=== PATIENT | female | born 1945 | race Caucasian/White ===

== ENCOUNTER → 2024-02-17 06:22 | Day surgery (SDC) | payer OTHER, SELFPAY | LOC: GI 06:22 | PROVIDERS: ATTENDING PHYSICIAN Internal Medicine Gastroenterology; FAMILY PHYSICIAN Physician Assistant Medical | DX: R19.5 Other fecal abnormalities (principal) | CPT/HCPCS: 45378 ==

== ENCOUNTER 2024-03-16 23:07 | Inpatient (IN) | payer OTHER, SELFPAY ==
[2024-03-16 18:59] VITALS: BP 159/84
[2024-03-16 19:26] VITALS: BP 146/86
[2024-03-16 19:40] VITALS: BMI 27.5
[2024-03-16 20:02] LABS: % Basophils 0.5 % (0-2); % Eosinophils 1.6 % (0-6); % Immature Granulocytes 1.9 % (0-0.5); % Lymphocytes 7.9 % (20.5-51.1); % Monocytes 5.4 % (1.7-9.3); % Neutrophils 82.7 % (42.2-75.2); Absolute Basophils 0.1 10^3/uL (0-0.2); Absolute Eosinophils 0.3 10^3/uL (0-0.7); Absolute Immature Granulocytes 0.4 10^3/uL (0-0.05); Absolute Lymphocytes 1.5 10^3/uL (1.2-3.4); Absolute Neutrophils 15.1 10^3/uL (1.4-6.5); Hematocrit 33.9 % (37.0-47.0); Hemoglobin 10.5 g/dL (12.0-16.0); Mean Corpuscular Hgb 28.9 pg (27.0-31.0); Mean Corpuscular Volume 93.4 fL (81.0-99.0); Mean Platelet Volume 8.5 fL (7.4-10.4); Nucleated Red Blood Cells % 0 %; Platelet Count 438 10^3/uL (130-400); Red Blood Cell Count 3.63 10^6/uL (4.20-5.40); Red Cell Dist. Width 15.2 % (11.5-14.5); White Blood Cell Count 18.3 10^3/uL (4.8-10.8)
[2024-03-16 20:08] VITALS: BP 129/82
[2024-03-16 20:11] LABS: Urine Albumin 3+ (Neg - Trace); Urine Bilirubin Negative (Negative); Urine Character Bloody (Clear); Urine Color Red; Urine Glucose Negative (Negative); Urine Ketone 1+ (Negative); Urine Leukocyte Trace (Negative); Urine Nitrite Negative (Negative); Urine Occult Blood 4+ (Negative); Urine Urobilinogen Negative (Neg - 1+); Urine pH 6.5 (5.0-9.0)
[2024-03-16 20:16] LABS: ALT (SGPT) 16 U/L (0-35); AST (SGOT) 16 U/L (14-36); Albumin 3.5 g/dl (3.5-5.0); Alkaline Phosphatase 127 U/L (38-126); Blood Urea Nitrogen 33 mg/dl (7-17); Calcium 9.7 mg/dl (8.4-10.2); Carbon Dioxide 27 mmol/L (22-30); Chloride 105 mmol/L (98-107); Estimated Creatinine Clearance 29 ml/min; Glucose 157 mg/dl (70-99); Lipase 85 U/L (23-300); Potassium 5.2 mmol/L (3.5-5.1); Sodium 141 mmol/L (135-145); Total Bilirubin 0.4 mg/dl (0.2-1.3); Total Protein 7.5 g/dl (6.3-8.2)
[2024-03-16 20:19] LABS: Urine Red Blood Cell >100 /HPF (0-2)
[2024-03-16 21:16] VITALS: BP 127/62
[2024-03-16 21:20] VITALS: BP 127/62
--- NOTE | 2024-03-16 21:37 | ED.GENMED ---
History of Present Illness
General
Chief Complaint: Urinary Symptoms
Source: patient
Exam Limitations: none
Time Seen by Provider: 03/16/24 19:29
Nursing documentation reviewed up to this point in time: agreed with
Travel History
Have you had any contact with someone who has COVID-19?: No
Do you have any symptoms of coronavirus? Fever > 100 degrees, chills, cough, shortness of breath, sore throat, loss of taste or smell, muscle aches, or headache?: No
History of Present Illness
History of Present Illness:
Patient to ED with complaint of lower abdominal pain/pressure, difficulty urinating, blood in urine. States symptoms started today. Denies fever/chills, n/v/d. Brought to ED by her sister for eval.
Past History
Past History
ED Past Medical History: CAD, HTN, Hypercholesterolemia and NIDDM
ED Past Surgical History: Cardiac and Orthopedic
Social History
Tobacco: Non-smoker
Alcohol: None
Personal:
Living: with family
Family History
Family History: Negative Diabetes, Hypertension, Early CAD, Asthma or Cancer
Review of Systems
Review of Systems
Allergies reviewed?: Yes
All Other Systems: ROS reviewed and negative except as documented in HPI and ROS
Constitutional: Reports no symptoms
EENT: Reports no symptoms
Respiratory: Reports no symptoms
Cardiac: Reports no symptoms
ABD/GI: Reports abdominal pain (lower abdominal pain)
: Reports dysuria, urgency and bleeding
Musculoskeletal: Reports no symptoms
Skin: Reports no symptoms
Neurological: Reports no symptoms
Psychiatric: Reports no symptoms
Phy Exam
General Physical Exam
General Presentation: no apparent distress
General age: appears stated age
General Skin: warm and dry
General Habitus: normal
Cardiovascular Exam
Cardiovascular Exam: regular rate/rhythm
Pulmonary Exam
Pulmonary Exam: lungs clear and no respiratory distress
Gastrointestinal Exam
Gastrointestinal Exam: normal bowel sounds, soft, no organomegaly, no pulsatile mass, non distended and no cva tenderness
Palpation: left lower quadrant: Mild tenderness and right lower quadrant: Mild tenderness
Rectal Exam: normal external exam, normal sphincter tone and soft stool
Stool: brown
Guaiac Status: negative
Musculoskeletal Exam
Musculoskeletal Exam: full ROM and neuro vasc intact
Skin Exam
Skin Exam: normal color, warm/dry and no rash
Psychiatric Exam
Psychiatric Exam: normal mood/affect
Course
Orders/Labs/Results
Orders:
Orders
03/16/24 19:54
Complete Blood Count/With Diff Urgent
Comprehensive Metabolic Panel Urgent
Lipase Urgent
Urinalysis Reflex To Culture Urgent
Date Specimen was Collected: 03/16/24
Time Specimen was Collected: 19:52
Urine Microscopic Reflex Cult Urgent
Urine Culture Urgent
LUCY Source: U
Specimen Description:
Date Specimen was Collected: 03/16/24
Time Specimen was Collected: 19:52
Comment: ADD ON
03/16/24 20:25
CT Abd/pel Without Iv Or Oral Urgent
Comment:
Reason For Exam: Hematuria
03/16/24 22:46
Admit/Transfer Patient As Directed
Co-Sign Provider:
Level of Care: Inpatient admission
Assign to:: Medical/Surgical
Physician / Group: jolie
Diagnosis: ureteral mass
Reason for Hospitalization: ureteral mass
Expected length of stay greater than two midnights?: Yes
ELOS- Estimated Length of Stay in days: 3
I certify the patient meets the requirements for IP care: Yes
CefTRIAXone [Rocephin] 1,000 mg IV NOW STA
Sterile Water [Sterile Water For Injection] 10 ml IV NOW STA
03/16/24 22:47
Code Status As Directed
Resuscitation Status: Full Code
03/16/24 23:02
Bladder Scan As Directed
Follow Bladder Retention/Intermittent Cath Algorithm?: Yes
PRN if no void in __ hours: 6
Frequency: Per Retention Algorithm
If Bladder Scan Result >: 400
then:: Straight cath
Straight Cath As Directed
Frequency: Per Retention Algorithm
Additional Instructions: straight cath as needed per acute urinary retention algorithm for 24 hrs
Additional Instructions: for bladder scan greater than 400 mL
03/17/24 00:23
Acetaminophen [Tylenol] 650 mg PO Q4HPRN PRN
Bisacodyl [Dulcolax] 10 mg RECTAL [id number] PRN
Dextrose 50%-Water [Dextrose 50% Syringe] 12.5 grams IV [id number] PRN
Docusate W/Senna [Senokot-S] 1 tablet PO BIDPRN PRN
Glucagon [GlucaGen] 1 mg IM PRN PRN
Polyethylene Glycol Powder [Miralax] 17 grams PO DAILYPRN PRN
03/17/24 00:23
UROLOGY CONSULT Routine
Consulting Provider: Murphy Singh
Was physician already notified: Yes
Activity As Directed
Activity Level: As Tolerated
Bedside Glucose Monitoring As Directed
Frequency: AC&HS
Additional Instructions:: Change to q6h if pt on TPN, tube feeding or not eating
Pneumatic Compression Sleeves As Directed
Type: Knee high
Vital Signs As Directed
Frequency: Per unit guidelines
DX Deep Vein Thrombosis Video Routine
03/17/24 Breakfast
NPO
Allow oral meds: Yes
Allow clear liquids: No
Basic Metabolic Panel IN AM
Complete Blood Count/No Diff IN AM
Glycohemoglobin (HgbA1c) IN AM
03/17/24 07:30
Insulin Aspart Corrective Low [Novolog Flexpen-Low Resistance] See Protocol SC AC
03/17/24 08:00
Carvedilol [Coreg] 12.5 mg PO BID
03/17/24 18:00
Atorvastatin [Lipitor] 80 mg PO QPM
03/18/24 00:00
CefTRIAXone [Rocephin] 1,000 mg IV Q24H
03/18/24 06:00
Basic Metabolic Panel IN AM
Complete Blood Count/No Diff IN AM
03/19/24 06:00
Basic Metabolic Panel IN AM
Complete Blood Count/No Diff IN AM
03/20/24 06:00
Basic Metabolic Panel IN AM
Complete Blood Count/No Diff IN AM
03/21/24 06:00
Basic Metabolic Panel IN AM
Complete Blood Count/No Diff IN AM
Abnormal Lab Results
03/16/24
19:54
WBC 18.3 H 10^3/uL
(4.8-10.8)
RBC 3.63 L 10^6/uL
(4.20-5.40)
Hgb 10.5 L g/dL
(12.0-16.0)
Hct 33.9 L %
(37.0-47.0)
MCHC 31.0 L g/dL
(33.0-37.0)
RDW 15.2 H %
(11.5-14.5)
Plt Count 438 H 10^3/uL
(130-400)
Abs Immat Gran (auto) 0.4 H 10^3/uL
(0-0.05)
Absolute Neuts (auto) 15.1 H 10^3/uL
(1.4-6.5)
Absolute Monos (auto) 1.0 H 10^3/uL
(0.1-0.6)
Immature Gran % 1.9 H %
(0-0.5)
Neutrophils % 82.7 H %
(42.2-75.2)
Lymphocytes % 7.9 L %
(20.5-51.1)
Potassium 5.2 H mmol/L
(3.5-5.1)
BUN 33 H mg/dl
(7-17)
Creatinine 1.7 H mg/dL
(0.6-1.0)
Glucose 157 H mg/dl
(70-99)
Alkaline Phosphatase 127 H U/L
(38-126)
Urine Ketones 1+ A
(Negative)
Ur Occult Blood Reflex 4+ A
(Negative)
Leukocyte Esterase Rfl Trace A
(Negative)
Urine RBC >100 A /HPF
(0-2)
Urine Albumin (Reflex) 3+ A
(Neg - Trace)
03/16/24 19:54
03/16/24 19:54
Vital Signs
Initial and Last Documented VS:
Initial Vital Signs
Temp Pulse Resp BP Pulse Ox
98.1 F 85 18 159/84 95
03/16/24 18:59 03/16/24 18:59 03/16/24 18:59 03/16/24 18:59 03/16/24 18:59
Last Documented Vital Signs
Temp Pulse Resp BP Pulse Ox
97.5 F 73 16 138/71 92
03/17/24 00:37 03/17/24 00:37 03/17/24 00:37 03/17/24 00:37 03/17/24 00:37
*Critical Care Note
Total Time (30-74mins, 75-104mins- exclusive of procedures): Not Applicable
Update Note
Update Note:
CT, labs reviewed [facility] patient and family. Dr. Singh notified of CT results and will consult with patient. Requests holding eliquis, keep NPO. Patient is admitte to hospitalist for ureteral mass, hydronephrosis, hematuria.
ED Attending Note
-
Portions of this chart may have been created with voice recognition software.� Occasional wrong word or��sound alike� substitutions may have occurred due to the inherent limitations of voice recognition software.
Discharge Plan
Departure
Patient Disposition: Admit
Date of Disposition: 03/16/24
Time of Disposition: 21:59
Presentation/result/management discussed w/ accepting MD/DO: Hospitalist
Patient with high blood pressure during this ER visit?: No
Condition: Good
Covid-19: Not Applicable
Discharge Problem:
Hematuria, Ureteral mass
Interventions
Interventions:
*Risk Screen - Suicide Last Done: 03/16/24 19:41
*General Assessment Last Done: 03/16/24 18:59
*Neglect/Abuse Screening Last Done: 03/16/24 19:41
ED- Fall Risk Assessment Last Done: 03/16/24 19:41
*ED COVID-19 Vaccine History Last Done: 03/16/24 18:59
*Nursing Disposition Last Done: 03/17/24 00:16
ED-Female Genitourinary Assessment Last Done: 03/16/24 19:41
Discharge Date and Time
Discharge Date/Time: 03/17/24 00:17
--- NOTE | 2024-03-16 22:12 | HPS.HSE ---
Addendum entered and electronically signed by Jaya Soto DO 03/16/24 23:05:
Patient seen and examined independently. Agree with findings and plan as set forth by LOVELY Browne.
Patient is a 78y F with PMH significant for ASCVD, hypertension and DM-II who presents to ED complaining of LLQ abdominal pressure and gross hematuria. Patient states that she felt well this AM. This afternoon she noted development of
discomfort in the LLQ area followed by gross hematuria. She reports urge to urinate but is unable to pass much urine. She denies any fevers / chills, flank pain, N/V/D, etc. She denies any prior history of similar symptoms.
Patient is a life-long smoker.
Ass:
Left Ureteral Mass with Hydronephrosis
Hematuria secondary to the above
Acute Blood Loss Anemia secondary to the above
Leukocytosis / Thrombocytosis
Bilateral Adrenal Adenomas
Mild Hyperkalemia
CKD III
ASCVD
Benign Hypertension
DM-II
Plan:
Admit for further evaluation and treatment.
? ureteral mass / malignancy versus thrombosis / ureteral clot with surrounding ureteritis.
IV abx empirically for now.
NPO, hold further doses of Eliquis (last was 03/16 AM).
Urology evaluation for additional recommendations / interventions.
Bladder scan / straight cath as needed.
Follow H&H and transfuse if needed (consent obtained / on chart).
Hold losartan acutely given hyperkalemia
SSI coverage. Update A1C.
Original Note:
Family Physician
-
Family Physician: Jose Fountain PA-C
Chief Complaint
-
hematuria
History of Present Illness
78 year old with PMH fot CAD, HTN, HLD, DM presented to us with lower abdominal pressure, associated with difficulty urinating and blood in the urine since this afternoon. patient stated urge to void, but unable to void. denied STEVENSON, dizzy or
syncopal episode. denied fever, chills, chest pain, sob. denied n/v/d.
CT with ureteral mass. admitting for further management.
Medical History
Past Medical History
Past Medical History: Reports Other
Additional Past Medical History:
type 2 DM
CKD
HTN
HLD
PVD
CAD
COPD
Past Surgical History: Reports Other
Additional Past Surgical History:
CABG
left corneal implant
left meniscus repair
left knee surgery
cataract extraction
b/l Iliac stents
Social History
Tobacco: Former Smoker
Alcohol: None
Drug: None
Family History
Family History: Not pertinent
Allergies / Home Medications
Allergies reflects when Allergies were last updated in [facility].
Home Medications with original date entered in [facility]
Allergy/Medication List:
Allergies
Allergy/AdvReac Type Severity Reaction Status Date / Time
No Known Allergies Allergy Verified 03/16/24 19:01
Home Medications
aspirin 325 mg tablet,delayed release 325 mg PO DAILY 03/17/11
carvedilol 12.5 mg tablet 12.5 mg PO BID 03/17/11
clopidogrel 75 mg tablet 75 mg PO .QOD 03/17/11
glipizide 10 mg tablet 5 mg PO DAILY 03/17/11
atorvastatin 20 mg tablet 80 mg PO QPM 06/05/18
insulin glargine 100 unit/mL subcutaneous solution (Lantus U-100 Insulin) 15 units SQ HS 06/05/18
cefdinir 300 mg capsule (Omnicef) 300 mg PO BID #14 caps 09/23/19
losartan 100 mg-hydrochlorothiazide 12.5 mg tablet 1 ea PO DAILY 09/23/19
cefdinir 300 mg capsule 300 mg PO BID #14 caps 01/03/23
Review of Systems
-
Constitutional: Reports No Symptoms
EENT: Reports No Symptoms
Respiratory: Reports No Symptoms
Cardiac: Reports No Symptoms
Abdomen/GI: Reports Abdominal Pain
: Reports Difficulty Voiding and Bleeding
Musculoskeletal: Reports No Symptoms
Skin: Reports No Symptoms
Neurological: Reports No Symptoms
Endocrine: Reports No Symptoms
Hematologic/Lymphatic: Reports No Symptoms
Psych: Reports No Symptoms
Physical Exam
Vital Signs
Vital Signs
Temp Pulse Resp BP Pulse Ox
98.1 F 75 16 127/62 91
03/16/24 18:59 03/16/24 21:20 03/16/24 21:20 03/16/24 21:20 03/16/24 21:35
Physical Exam
General: Well Developed, Well Nourished and No Apparent Distress
HEENT: NormoCephalic, Moist mucous membranes and Atraumatic
Respiratory: Clear
Cardiac: S1/S2 and Regular Rhythm; No Murmur or Rub
GI: Soft, Non Tender, Non Distended and Normal Bowel Sounds; No Organomegaly
Rectal: Deferred by Provider
Musculoskeletal: No Clubbing, No Cyanosis and No Edema
Skin: No Rash
Neuro: AO x 3 and Nonfocal/grossly intact
Psych: Calm
Laboratory Results
-
03/16/24 19:54
03/16/24 19:54
Laboratory Results
Total Bilirubin 0.4 mg/dl (0.2-1.3) 03/16/24 19:54
AST 16 U/L (14-36) 03/16/24 19:54
ALT 16 U/L (0-35) 03/16/24 19:54
Alkaline Phosphatase 127 U/L (38-126) H 03/16/24 19:54
Lipase 85 U/L (23-300) 03/16/24 19:54
Data Reviewed
-
CT Scan: Report Reviewed by me
Lab Data: Labs Reviewed by me
Impression/Plan
-
#acute blood loss anemia/hematuria likely from left ureteral mass
-hold eliquis
-NPO
-hgb 10.5
-urology consulted
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 Obstructing blood clot with surrounding ureteritis (infectious or inflammatory)
is considered less likely.
2. Mild left retroperitoneal and left pelvic lymphadenopathy suspicious for celena metastatic disease. Benign reactive lymph nodes are an alternative diagnostic possibility.
3. Mild diffuse urinary bladder wall thickening.
4. 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
5. Severe diverticulosis in the sigmoid colon.
6. Bilateral adrenal adenomas.
7. Severe calcific atherosclerotic plaque in the abdominal aorta with bilateral common iliac artery stents in place.
8. Very severe discogenic degenerative disease throughout the lumbar spine.
9. Very severe osteoarthritis in the left hip.
#leukocytosis likely reactive
-wbc 18.3
-UA negative
-continue to trend
-ceftriaxone initiated prophylactically to cover UTI
#hyperkalemia/ckd stage 3b
-k 5.2,cr 1.7
-continue to trend
#hxt of CAD
-s/p CABG
-asa continued
-hold eliquis
#Type 2 Dm
-sliding scale
-blood sugar check
#hld
-statin
#essential htn
-Coreg continued
-hold losartan
#nicotine dependence
-denied nicotine patch
#DVT prophylaxis
-scd
#CODE status
-full code
[2024-03-16] MEDS: STERILE WATER FOR INJECTION 10 ML IV (23:42)
[2024-03-16] MEDS: ROCEPHIN 1000 MG IV (23:42)
[2024-03-16 23:47] VITALS: BP 152/124
[2024-03-17 00:35] LABS: Glucose - Point of Care 143 mg/dl (70-99)
[2024-03-17 00:37] VITALS: BP 138/71; BMI 27.5
--- NOTE | 2024-03-17 01:48 | PTCARENOTE ---
Receive pt from ER. Pt alert oriented X3, calm and cooperative. Pt assist X1 w/RW to her bed. Complains about weakness on the left leg that is chronic. Pt oriented to the room, call baig within reach. Pt offers no complaint about fever, chills,
pain, but reports 'pressure' like on the LLQ. VSS (T=97.5, HR=73, RR=16, OS=555/71, SpO2=92% on RA). Pt voids 50cc of bloody urine in the bathroom. Bladder scan shows 0. Pt's WI=602. Pt is NPO until seen by urology. Will continue to monitor the pt.
[2024-03-17 06:10] LABS: Glucose - Point of Care 146 mg/dl (70-99)
[2024-03-17] MEDS: NOVOLOG FLEXPEN-LOW RESISTANCE SC ×2 (06:16→18:00)
[2024-03-17 07:35] VITALS: BP 117/60
[2024-03-17 08:08] LABS: Hematocrit 29.4 % (37.0-47.0); Hemoglobin 9.5 g/dL (12.0-16.0); Mean Corp Hgb Conc. 32.3 g/dL (33.0-37.0); Mean Corpuscular Hgb 28.6 pg (27.0-31.0); Mean Corpuscular Volume 88.6 fL (81.0-99.0); Mean Platelet Volume 8.5 fL (7.4-10.4); Platelet Count 393 10^3/uL (130-400); Red Blood Cell Count 3.32 10^6/uL (4.20-5.40); Red Cell Dist. Width 15.1 % (11.5-14.5)
[2024-03-17 08:19] LABS: Blood Urea Nitrogen 29 mg/dl (7-17); Calcium 9.1 mg/dl (8.4-10.2); Carbon Dioxide 26 mmol/L (22-30); Chloride 106 mmol/L (98-107); Estimated Creatinine Clearance 30 ml/min; Glucose 131 mg/dl (70-99); Potassium 4.8 mmol/L (3.5-5.1); Sodium 140 mmol/L (135-145); eGFR 33.01
[2024-03-17] MEDS: FLUSH (NSS) 1 FLUSH IV (10:00)
[2024-03-17] MEDS: COREG 12.5 MG PO ×2 (10:00→20:51)
--- NOTE | 2024-03-17 11:01 | W.PN.HOSP.TC ---
Today's Communication/Plan
-
see A/P
Assessment / Plan
Assessment / Plan
HPI: 78 yo F with PMH significant for ASCVD, hypertension and DM-II who presented to ED complaining of LLQ abdominal pressure and gross hematuria.
She reports urge to urinate but was unable to pass much urine.
Patient is a life-long smoker.
CT AP:
1. 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 Obstructing blood clot with surrounding ureteritis (infectious or inflammatory) is
considered less likely.
2. Mild left retroperitoneal and left pelvic lymphadenopathy suspicious for celena metastatic disease. Benign reactive lymph nodes are an alternative diagnostic possibility.
3. Mild diffuse urinary bladder wall thickening.
4. 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
5. Severe diverticulosis in the sigmoid colon.
6. Bilateral adrenal adenomas.
7. Severe calcific atherosclerotic plaque in the abdominal aorta with bilateral common iliac artery stents in place.
8. Very severe discogenic degenerative disease throughout the lumbar spine.
9. Very severe osteoarthritis in the left hip.
A/P:
# LLQ abdominal pressure and gross hematuria, with Left Ureteral Mass and Hydronephrosis
# Acute Blood Loss Anemia secondary to the above
? ureteral mass / malignancy versus thrombosis / ureteral clot with surrounding ureteritis.
hold further doses of Eliquis (last was 03/16 AM).
Cont Bladder scan, currently no retention noted.
Follow H&H and transfuse if needed (consent obtained / on chart).
Uro consulted
# Leukocytosis, reactive vs infective
Follow urine Cx
Cont empiric Abx ceftriaxone
# Resolved Thrombocytosis
# Bilateral Adrenal Adenomas
Outpt eval with PCP
# Mild Hyperkalemia, resolved
# CKD stage III
# ASCVD
# Benign Hypertension
# h/o CABG 2023
Cont CHARGING PLUG PLACER Coreg 12.5 BID
Hold losartan due to hyperkalemia
# DM-II
SSI coverage.
Update A1C.
# h/o RLE DVT one year ago and was started with Eliquis
Check BL LE US for DVT, if negative, would DC further Eliquis
DVT ppx: SCD, CHARGING PLUG PLACER Eliquis on hold
FC
DW family at bedside
DW RN
DW Uro
Anticipated Discharge: > 48 hours
Subjective/Interval History
-
Date of Service: March 17, 2024
Objective Data
-
Labs:
Laboratory Results
03/17/24
07:28
WBC 17.0 H
Hgb 9.5 L
Hct 29.4 L
Plt Count 393
Sodium 140
Potassium 4.8
Chloride 106
Carbon Dioxide 26
BUN 29 H
Creatinine 1.6 H
Glucose 131 H
Calcium 9.1
Vital Signs:
Vital Signs
Temp Pulse Resp BP Pulse Ox
36.6 C 70 18 117/60 93
03/17/24 07:35 03/17/24 10:00 03/17/24 07:35 03/17/24 10:00 03/17/24 09:00
I&O
03/16/24 03/17/24 03/18/24
06:59 06:59 06:59
Output Total 225 / 225
Balance -225 / -225
Review of Systems
-
Abdomen/GI: Reports Abdominal Pain (LLQ)
Genitourinary: Reports Urgency and Other (hematuria)
Physical Exam
-
General: Well Developed, Well Nourished, No Apparent Distress, Comfortable and Conversant; Negative Respiratory Distress
HEENT: Normocephalic, Atraumatic, Nose Appears Normal and Ears Appear Normal; Negative Oxygen
Respiratory: Clear to Auscultation and Non Labored Respirations; Negative Accessory Resp Muscle Use
Cardiac: Regular Rhythm and S1/S2
GI: Soft, Nontender, Nondistended and Normal Bowel Sounds
Skin: Warm and Dry
Neuro: Awake, Alert, Oriented and AO x 3
Psych: Calm and Intact Judgement/Insight
Data Reviewed
-
CT Scan: Report Reviewed by me
Labs: Labs Reviewed by me
[2024-03-17 12:11] LABS: Glycohemoglobin (HgbA1c) 7.9 % (4.0-5.6)
[2024-03-17 12:31] LABS: Glucose - Point of Care 187 mg/dl (70-99)
[2024-03-17] MEDS: NOVOLOG FLEXPEN-LOW RESISTANCE 1 UNITS SC (13:11)
--- NOTE | 2024-03-17 13:22 | CONS.URO ---
Consultation
-
Performing Provider: Luisfer
Reason for Consultation: Ureteral mass
Medical History
History of Present Illness
78F, lifelong smoker, no significant urologist history in the past
Presenting with acute onset L abdominal pain and gross hematuria with clots
She reports urge to urinate but is unable to pass much urine.
She denies any fevers / chills, flank pain, N/V/D, etc. She denies any prior history of similar symptoms
History of CKD III
On Eliquis for history of RLE DVT [address] showed a large L mid to distal ureteral mass with L hydronephrosis concerning for urothelial carcinoma
Bladder diverticulum
Past Medical History
Past Medical History: Other (type 2 DM CKD HTN HLD PVD CAD COPD Past Surgical History: Reports Other Additional Past Surgical History: CABG left corneal implant left meniscus repair left knee surgery cataract extraction b/l Iliac stents)
Past Surgical History: Other (as above)
Social History
Tobacco: Former Smoker
Alcohol: None
Drug: None
Family History
Family History: Reviewed & Not Pertinent
Allergies/Home Medications
Allergies
Allergy/AdvReac Type Severity Reaction Status Date / Time
No Known Allergies Allergy Verified 03/16/24 19:01
Home Medications
�Medication �Instructions �Recorded �Confirmed �Type
carvedilol 12.5 mg tablet 12.5 mg PO BID Blood Pressure 03/17/11 03/16/24 History
atorvastatin 20 mg tablet 80 mg PO QPM High Cholesterol 06/05/18 03/16/24 History
insulin glargine 100 unit/mL 11 units SQ HS Diabetes 06/05/18 03/16/24 History
subcutaneous solution (Lantus
U-100 Insulin)
apixaban 2.5 mg tablet (Eliquis) 5 mg PO BID Blood Clot 03/16/24 03/17/24 History
Prevention/Tx
losartan 25 mg tablet 25 mg PO DAILY Blood Pressure 03/16/24 03/16/24 History
aspirin 81 mg chewable tablet 81 mg PO HS 03/17/24 03/17/24 History
Physical Exam
Vital Signs
Vital Signs
Temp Pulse Resp BP Pulse Ox
98 F 70 18 117/60 93
03/17/24 07:35 03/17/24 10:00 03/17/24 07:35 03/17/24 10:00 03/17/24 09:00
Lab / Testing Results
Laboratory Results
03/17/24 07:28
03/17/24 07:28
Physical Exam
General: Well Developed, Well Nourished and No Apparent Distress
Respiratory: Clear
GI: Soft, Non Tender and Non Distended
Genito-urinary: No Costovertebral Tend
Neuro: AO x 3
Psych: Calm and Intact Judgement
Assessment / Plan
-
78F with gross hematuria and large obstructing L ureteral mass
- Hematuria improving with red colored urine but not further clots per patient. Trend HGB
- No acute intervention needed at this time - okay for diet
Left ureteral mass
- Left ureteral mass concerning for urothelial carcinoma with some slightly enlarged regional lymph nodes suggestive of possible early metastatic disease
- Treatment for this may depend on presence of metastasis. Reviewed with IR Dr. Byrnes who does not think small lymph nodes could be successfully biopsied
- Assuming urothelial carcinoma, treatment will likely require left nephroureterectomy and lymph node dissection. Sloan management would include neoadjuvant cisplatin based chemotherapy, however with her renal function I don't think she will be a
candidate. Consider heme/onc consult for input on management.
- Will send urine for cytology if hematuria improved enough to get diagnostic specimen
- Will plan for endoscopic biopsy with left ureteroscopy this week after Eliquis washout
- IR consulted for left nephrostomy tube placement to relieve pain of obstruction and maximize renal function
Bladder diverticulum
- 6cm R bladder diverticulum c/w chronic bladder outlet obstruction or voiding dysfunction
Data Reviewed
-
CT Scan: Image personally visualized and interpreted
Lab Data: Labs Reviewed
[2024-03-17 15:20] VITALS: BP 124/57
--- NOTE | 2024-03-17 17:06 | CM ---
Alert awake oriented patient who lives with her Usman who lives in a 2 story home with 3 step to enter and 12 steps to bed and bathroom. She is independent in all activities of daily living.He was offered VN he declined need.
No VN hx / No SNF history
Pharmacy [facility]
PCP DR Fountain
PLAN Home Declined VN
[2024-03-17 17:43] LABS: Glucose - Point of Care 136 mg/dl (70-99)
[2024-03-17] MEDS: LIPITOR 80 MG PO (18:59)
[2024-03-17 21:30] LABS: Glucose - Point of Care 219 mg/dl (70-99)
[2024-03-17 23:45] VITALS: BP 126/59
[2024-03-17] MEDS: STERILE WATER FOR INJECTION 10 ML IV (23:56)
[2024-03-17] MEDS: ROCEPHIN 1000 MG IV (23:56)
[2024-03-18 07:36] LABS: Glucose - Point of Care 163 mg/dl (70-99)
[2024-03-18 07:49] LABS: Hematocrit 30.3 % (37.0-47.0); Hemoglobin 9.8 g/dL (12.0-16.0); Mean Corp Hgb Conc. 32.3 g/dL (33.0-37.0); Mean Corpuscular Volume 89.6 fL (81.0-99.0); Mean Platelet Volume 8.7 fL (7.4-10.4); Platelet Count 413 10^3/uL (130-400); Red Blood Cell Count 3.38 10^6/uL (4.20-5.40); Red Cell Dist. Width 15.3 % (11.5-14.5); White Blood Cell Count 17.9 10^3/uL (4.8-10.8)
[2024-03-18 07:55] VITALS: BP 118/64
[2024-03-18 08:12] LABS: Blood Urea Nitrogen 27 mg/dl (7-17); Calcium 9.3 mg/dl (8.4-10.2); Carbon Dioxide 23 mmol/L (22-30); Chloride 105 mmol/L (98-107); Estimated Creatinine Clearance 28 ml/min; Glucose 131 mg/dl (70-99); Potassium 4.8 mmol/L (3.5-5.1); Sodium 138 mmol/L (135-145)
[2024-03-18] MEDS: NOVOLOG FLEXPEN-LOW RESISTANCE 1 UNITS SC ×3 (09:20→18:13)
[2024-03-18] MEDS: COREG 12.5 MG PO ×2 (09:20→20:39)
--- NOTE | 2024-03-18 10:57 | W.PN.HOSP.TC ---
Today's Communication/Plan
-
see A/P
Assessment / Plan
Assessment / Plan
HPI: 78 yo F with PMH significant for ASCVD, hypertension and DM-II who presented to ED complaining of LLQ abdominal pressure and gross hematuria.
She reports urge to urinate but was unable to pass much urine.
Patient is a life-long smoker.
CT AP:
1. 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 Obstructing blood clot with surrounding ureteritis (infectious or inflammatory) is
considered less likely.
2. Mild left retroperitoneal and left pelvic lymphadenopathy suspicious for celena metastatic disease. Benign reactive lymph nodes are an alternative diagnostic possibility.
3. Mild diffuse urinary bladder wall thickening.
4. 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
5. Severe diverticulosis in the sigmoid colon.
6. Bilateral adrenal adenomas.
7. Severe calcific atherosclerotic plaque in the abdominal aorta with bilateral common iliac artery stents in place.
8. Very severe discogenic degenerative disease throughout the lumbar spine.
9. Very severe osteoarthritis in the left hip.
A/P:
# LLQ abdominal pressure and gross hematuria, with Left Ureteral Mass and Hydronephrosis
# Acute Blood Loss Anemia secondary to the above
? ureteral mass / malignancy versus thrombosis / ureteral clot with surrounding ureteritis.
hold further doses of Eliquis (last was 03/16 AM).
Cont Bladder scan, currently no retention noted.
Follow H&H and transfuse if needed (consent obtained / on chart).
Uro on board, [facility] endoscopic biopsy with left ureteroscopy after Eliquis washout, also IR CS for left nephrostomy tube placement to relieve pain of obstruction and maximize renal function
Consider Onc CS
# Leukocytosis, reactive vs infective
Follow urine Cx, growing GNR
Cont empiric Abx ceftriaxone
# Noted leucocytosis and Thrombocytosis
Check CBC diff
consider heme eval
# Bilateral Adrenal Adenomas
Outpt eval with PCP
# Mild Hyperkalemia, resolved
# CKD stage III
SCr at 1.7 , at baseline
# ASCVD
# Benign Hypertension
# h/o CABG 2022
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
Hold losartan due to hyperkalemia
# DM-II
SSI coverage.
A1C 7.9%.
# h/o RLE DVT one year ago and was started with Eliquis
LE US negative for DVT
Pt unlikely would need Eliquis going forward
DVT ppx: SCD, DC MANAGER [employer]ING Eliquis
FC
Anticipated Discharge: > 48 hours
Subjective/Interval History
-
Date of Service: March 18, 2024
Objective Data
-
Labs:
Laboratory Results
03/18/24
06:45
WBC 17.9 H
Hgb 9.8 L
Hct 30.3 L
Plt Count 413 H
Sodium 138
Potassium 4.8
Chloride 105
Carbon Dioxide 23
BUN 27 H
Creatinine 1.7 H
Glucose 131 H
Calcium 9.3
Vital Signs:
Vital Signs
Temp Pulse Resp BP Pulse Ox
37.3 C 77 18 118/64 94
03/18/24 07:55 03/18/24 07:55 03/18/24 07:55 03/18/24 07:55 03/18/24 07:55
I&O
03/17/24 03/18/24 03/19/24
06:59 06:59 06:59
Intake Total 780 / 780
Output Total 225 / 225 895 / 895
Balance -225 / -225 -115 / -115
Review of Systems
-
All other systems: Reviewed and negative
Physical Exam
-
General: Well Developed, Well Nourished, No Apparent Distress, Comfortable and Conversant; Negative Respiratory Distress
HEENT: Normocephalic, Atraumatic, Nose Appears Normal and Ears Appear Normal; Negative Oxygen
Respiratory: Clear to Auscultation and Non Labored Respirations; Negative Accessory Resp Muscle Use
Cardiac: Regular Rhythm and S1/S2
GI: Soft, Nontender, Nondistended and Normal Bowel Sounds
Skin: Warm and Dry
Neuro: Awake and Alert
Psych: Calm and Intact Judgement/Insight
Data Reviewed
-
CT Scan: Report Reviewed by me
Ultrasound: Report Reviewed by me and Discussed with Patient
Labs: Labs Reviewed by me
[2024-03-18 11:45] LABS: % Basophils 0.4 % (0-2); % Eosinophils 0.8 % (0-6); % Immature Granulocytes 1.1 % (0-0.5); % Lymphocytes 7.7 % (20.5-51.1); % Monocytes 5.4 % (1.7-9.3); % Neutrophils 84.6 % (42.2-75.2); Absolute Basophils 0.1 10^3/uL (0-0.2); Absolute Eosinophils 0.2 10^3/uL (0-0.7); Absolute Immature Granulocytes 0.2 10^3/uL (0-0.05); Absolute Lymphocytes 1.4 10^3/uL (1.2-3.4); Nucleated Red Blood Cells % 0 %
--- NOTE | 2024-03-18 11:58 | W.PN.URO.CBU ---
Today's Communication / Plan
-
Left nephrostomy placement tomorrow
NPO at [place]
Possible ureteroscopic biopsy Tuesday
Assessment / Plan
-
78F with gross hematuria and large obstructing L ureteral mass
- Hematuria improving with red colored urine but no further clots per patient. HGB stable
- Prev on Eliquis for DVT 1 year ago - DVT resolved on US and Eliquis discontinued
Left ureteral mass
- Left ureteral mass concerning for urothelial carcinoma with some slightly enlarged regional lymph nodes suggestive of possible early metastatic disease
- Treatment for this may depend on presence of metastasis. Reviewed with IR Dr. Byrnes who does not think small lymph nodes could be successfully biopsied
- Assuming urothelial carcinoma, treatment will likely require left nephroureterectomy and lymph node dissection. [place] management would include neoadjuvant cisplatin based chemotherapy, however with her renal function I don't think she will be a
candidate. Consider heme/onc consult for input on management
- Urine cytology ordered
- IR consulted for left nephrostomy tube placement to relieve pain of obstruction and maximize renal function - planned for Tuesday
- Ordered NPO at [place]
- Will plan for endoscopic biopsy with left ureteroscopy this week (possible Tuesday) after Eliquis washout
Bladder diverticulum
- 6cm R bladder diverticulum c/w chronic bladder outlet obstruction or voiding dysfunction
Diagnosis
-
Date of Service: March 18, 2024
-
Patient Diagnosis:
Gross hematuria
Left ureteral mass
L hydronephrosis
Leukocytosis
UTI
Post Op Day:
Subjective
-
pain improved
no significant voiding difficulty
Hematuria improved per patient
Objective
-
Vital Signs
Temp Pulse Resp BP Pulse Ox
99.2 F 77 18 118/64 94
03/18/24 07:55 03/18/24 07:55 03/18/24 07:55 03/18/24 07:55 03/18/24 07:55
Intake and Output
03/17/24 03/18/24 03/19/24
06:59 06:59 06:59
Intake Total 780 / 780
Output Total 225 / 225 895 / 895
Balance -225 / -225 -115 / -115
Intake:
Oral fluids 780 / 780
Output:
Urine, Voided 225 / 225 895 / 895
Other:
Number of approximated MODERATE 1
amounts of urine
Laboratory Results
03/18/24 06:45
03/18/24 06:45
Physical Exam
-
General - well developed, well nourished, no acute distress
Chest - clear
Abdomen - soft, non-tender
Skin - warm & dry with no rash
Neuro - AOx3, no motor deficits
[2024-03-18 12:05] LABS: Glucose - Point of Care 156 mg/dl (70-99)
[2024-03-18 15:49] VITALS: BP 112/51
[2024-03-18 17:49] LABS: Glucose - Point of Care 192 mg/dl (70-99)
[2024-03-18] MEDS: LIPITOR 80 MG PO (18:13)
[2024-03-18] MEDS: FLUSH (NSS) 1 FLUSH IV (20:49)
[2024-03-18 21:39] LABS: Glucose - Point of Care 222 mg/dl (70-99)
[2024-03-18 23:51] VITALS: BP 132/62
[2024-03-19] VITALS (15 sets, daily range): BP systolic 64–147; BP diastolic 54–93
[2024-03-19] MEDS: ROCEPHIN 1000 MG IV ×2 (00:01→23:00)
[2024-03-19] MEDS: STERILE WATER FOR INJECTION 10 ML IV ×2 (00:01→23:00)
[2024-03-19 05:42] LABS: Glucose - Point of Care 158 mg/dl (70-99)
[2024-03-19] MEDS: NOVOLOG FLEXPEN-LOW RESISTANCE 1 UNITS SC ×2 (06:55→12:39)
[2024-03-19 07:46] LABS: % Basophils 0.6 % (0-2); % Immature Granulocytes 1.3 % (0-0.5); % Lymphocytes 8.6 % (20.5-51.1); % Monocytes 6.6 % (1.7-9.3); % Neutrophils 81.9 % (42.2-75.2); Absolute Basophils 0.1 10^3/uL (0-0.2); Absolute Eosinophils 0.2 10^3/uL (0-0.7); Absolute Immature Granulocytes 0.2 10^3/uL (0-0.05); Absolute Lymphocytes 1.4 10^3/uL (1.2-3.4); Absolute Neutrophils 12.8 10^3/uL (1.4-6.5); Hematocrit 30.6 % (37.0-47.0); Hemoglobin 9.9 g/dL (12.0-16.0); Mean Corp Hgb Conc. 32.4 g/dL (33.0-37.0); Mean Corpuscular Hgb 28.9 pg (27.0-31.0); Mean Corpuscular Volume 89.2 fL (81.0-99.0); Mean Platelet Volume 8.6 fL (7.4-10.4); Nucleated Red Blood Cells % 0 %; Platelet Count 366 10^3/uL (130-400); Red Blood Cell Count 3.43 10^6/uL (4.20-5.40); Red Cell Dist. Width 15.3 % (11.5-14.5); White Blood Cell Count 15.7 10^3/uL (4.8-10.8)
[2024-03-19 07:55] LABS: INR 1.24; PT 15.4 Sec (11.4-14.6)
[2024-03-19 07:56] LABS: APTT 32.6 Sec (23.4-35.0)
[2024-03-19] MEDS: COREG 12.5 MG PO ×2 (08:14→21:01)
[2024-03-19 08:19] LABS: Blood Urea Nitrogen 24 mg/dl (7-17); Calcium 9.2 mg/dl (8.4-10.2); Carbon Dioxide 26 mmol/L (22-30); Chloride 106 mmol/L (98-107); Estimated Creatinine Clearance 32 ml/min; Glucose 146 mg/dl (70-99); Sodium 139 mmol/L (135-145); eGFR 35.67
[2024-03-19 12:05] LABS: Glucose - Point of Care 163 mg/dl (70-99)
--- NOTE | 2024-03-19 13:36 | W.PN.URO.CBU ---
Today's Communication / Plan
-
Continue abx for Klebsiella UTI
IR for nephrostomy tube, possible biopsy
Plan for OR for cystoscopy and ureteral biopsy
Assessment / Plan
-
78F with gross hematuria and large obstructing L ureteral mass
- Hematuria improving with HGB stable
- Previously on Eliquis for DVT 1 year ago - DVT resolved on US and Eliquis discontinued
Left ureteral mass
- Left ureteral mass concerning for urothelial carcinoma with some slightly enlarged regional lymph nodes suggestive of possible early metastatic disease
- Treatment for this may depend on presence of metastasis. Reviewed with IR Dr. Byrnes who does not think small lymph nodes could be successfully biopsied
- Assuming urothelial carcinoma, treatment will likely require left nephroureterectomy and lymph node dissection. [place] management would include neoadjuvant cisplatin based chemotherapy, however with her renal function I don't think she will be a
candidate. Consider heme/onc consult for input on management
- Urine cytology ordered
- IR consulted for left nephrostomy tube placement to relieve pain of obstruction and maximize renal function. +/- biopsy of lymphadenopathy if feasible - planned for Tuesday
- Will plan for endoscopic biopsy with left ureteroscopy, cystoscopy evaluation of the bladder this week. Given persistent leukocytosis and Klebsiella UTI, would want to clear bacteria from upper tract with nephrostomy before attempting
ureteroscopic biopsy
- Tentatively added to OR schedule for
Bladder diverticulum
- 6cm R bladder diverticulum c/w chronic bladder outlet obstruction or voiding dysfunction
Diagnosis
-
Date of Service: March 19, 2024
-
Patient Diagnosis:
Gross hematuria
Left ureteral mass
L hydronephrosis
Leukocytosis
UTI
Post Op Day:
Subjective
-
hematuria improved
HGB stable
minimal pain
Objective
-
Vital Signs
Temp Pulse Resp BP Pulse Ox
98.9 F 63 18 144/65 100
03/19/24 07:15 03/19/24 07:15 03/19/24 07:15 03/19/24 07:15 03/19/24 08:40
Intake and Output
03/18/24 03/19/24 03/20/24
06:59 06:59 06:59
Intake Total 780 / 780 960 / 960
Output Total 895 / 895 1325 / 1325
Balance -115 / -115 -365 / -365
Intake:
Oral fluids 780 / 780 960 / 960
Output:
Urine, Voided 895 / 895 1325 / 1325
Other:
Number of approximated MODERATE 1
amounts of urine
Laboratory Results
03/19/24 07:20
03/19/24 07:20
Physical Exam
-
General - well developed, well nourished, no acute distress
Chest - clear
Abdomen - soft, non-tender
Skin - warm & dry with no rash
Neuro - AOx3, no motor deficits
Extremities - no clubbing, no cyanosis, no edema
--- NOTE | 2024-03-19 16:00 | PTCARENOTE ---
Received patient from [facility] s/p left nephrostomy tube. Dressing CDI. Patient comfortable at present time.
--- NOTE | 2024-03-19 16:16 | CM ---
Patient off floor, CM reviewed chart. Patient for IR for nephrostomy tube placement, plan for OR for cystoscopy and ureteral biopsy. CM will continue to follow for all discharge planning needs, patient previously declined VN.
Plan; home no needs, offer VN to patient again.
--- NOTE | 2024-03-19 16:45 | CON.ONC ---
Impression
Impression
Mass suspicious for malignancy in left mid ureter, with mildly enlarged retroperitoneal and pelvic lymphadenopathy
Left ureteral nephrostomy tube placed
Chronic kidney disease
Deep vein thrombosis June 2023
Diabetes
Coronary artery disease
Triple anticoagulant therapy with aspirin, Plavix, and Eliquis???
Plan
Plan
Agree with plans for cystoscopy and ureteroscopy on March 22. Stage unclear at this time, CT scan does suggest regional lymphadenopathy. This could be better evaluated as an outpatient with a PET scan.
Treatment will obviously depend upon her clinical stage. My sense is that her overall performance status is borderline in terms of her ability to tolerate chemotherapy. While her renal function is not great, in and of itself that would not
preclude chemotherapy, but she seems debilitated in general.
Patient History
History of Present Illness
Consult from Dr. Matos regarding ureteral mass
This 78-year-old woman was admitted with gross hematuria. She was also experiencing some mild nonspecific abdominal pain. Evaluation here shows a mass in the left mid ureter. Various aspects of her chart suggest that she may have been on aspirin,
Plavix, as well as Eliquis. All of them are being withheld in anticipation of cystoscopy and ureteroscopy on March 22. She did undergo placement of a percutaneous nephrostomy today. She denies any weight loss. She does admit to difficulty getting
around at home, she has a walker upstairs, and a walker downstairs, and says once a day she goes up and down the steps walking like a crab. She lives with her .
Past-Medical/Surgical History
As per problem list below.
Social history: She lives with her but is minimally ambulatory.
Family history is noncontributory.
Patient Medication
�Medication �Instructions �Recorded �Confirmed �Last Taken �Type
carvedilol 12.5 mg tablet 12.5 mg PO BID Blood Pressure 03/17/11 03/16/24 03/17/11 History
atorvastatin 20 mg tablet 80 mg PO QPM High Cholesterol 06/05/18 03/16/24 Unknown History
insulin glargine 100 unit/mL 11 units SQ HS Diabetes 06/05/18 03/16/24 Unknown History
subcutaneous solution (Lantus
U-100 Insulin)
apixaban 2.5 mg tablet (Eliquis) 5 mg PO BID Blood Clot 03/16/24 03/17/24 Unknown History
Prevention/Tx
losartan 25 mg tablet 25 mg PO DAILY Blood Pressure 03/16/24 03/16/24 Unknown History
aspirin 81 mg chewable tablet 81 mg PO HS 03/17/24 03/17/24 03/15/24 History
Active Medications
Generic Name Dose Route Start Last Admin
Trade Name Freq PRN Reason Stop Dose Admin
Acetaminophen 650 mg 03/17/24 00:23
Acetaminophen 325 Mg Tablet PO 04/14/24 00:22
Q4HPRN PRN
mild pain/STEVENSON/temp> 100.4F
Atorvastatin Calcium 80 mg 03/17/24 18:00 03/18/24 18:13
Atorvastatin (Lipitor) 80 Mg Tablet PO 04/14/24 17:59 80 mg
QPM VENKATESH Administration
Bisacodyl 10 mg 03/17/24 00:23
Bisacodyl 10 Mg Rectal Suppository RECTAL 04/14/24 00:22
[id number] PRN
constipation
Carvedilol 12.5 mg 03/17/24 08:00 03/19/24 08:14
Carvedilol 12.5 Mg Tablet PO 04/14/24 07:59 12.5 mg
BID VENKATESH Administration
Ceftriaxone Sodium 1,000 mg 03/18/24 00:00 03/19/24 00:01
Ceftriaxone 1000 Mg / 10 Ml Vial IV 1,000 mg
Q24H VENKATESH Administration
Dextrose 12.5 grams 03/17/24 00:23
Dextrose 50% (0.5 Grams/Ml) 50 Ml Syringe IV 04/14/24 00:22
[id number] PRN
hypoglycemia
Protocol
Glucagon 1 mg 03/17/24 00:23
Glucagon 1 Mg Vial IM 04/14/24 00:22
PRN PRN
hypoglycemia
Protocol
Insulin Aspart 0 units 03/19/24 06:00 03/19/24 12:39
Insulin Aspart Low Resistance 300 Units/3 Ml Pen.Injctr SC 04/16/24 05:59 1 units
Q6 VENKATESH Administration
Protocol
Polyethylene Glycol 17 grams 03/17/24 00:23
Polyethylene Glycol Powder 17 Grams Packet PO 04/14/24 00:22
DAILYPRN PRN
constipation
Senna/Docusate Sodium 1 tablet 03/17/24 00:23
Docusate W/Senna (Misty-Colace) Tablet PO 04/14/24 00:22
BIDPRN PRN
constipation
Sodium Chloride 0 flush 03/17/24 01:00 03/18/24 20:49
Sodium Chloride 0.9% (Flush) Syringe IV 04/14/24 00:59 1 flush
PER PROTOCOL VENKATESH Administration
Sterile Water 10 ml 03/18/24 00:00 03/19/24 00:01
Sterile Water For Injection 10 Ml Vial IV 04/15/24 00:00 10 ml
Q24H VENKATESH Administration
Review of Systems
-
All Other Systems: Reviewed and Negative
Physical Exam
-
Physical examination shows the patient to be in no acute distress.
HEENT exam is unremarkable.
There are no palpable nodes.
Chest is clear.
The heart is regular with no murmur or gallop.
The abdomen is soft and nontender with no organomegaly or masses.
Extremities are unremarkable.
Neurologic is grossly intact.
Labs
Lab Results
WBC 15.7 10^3/uL (4.8-10.8) H 03/19/24 07:20
RBC 3.43 10^6/uL (4.20-5.40) L 03/19/24 07:20
Hgb 9.9 g/dL (12.0-16.0) L 03/19/24 07:20
Hct 30.6 % (37.0-47.0) L 03/19/24 07:20
MCV 89.2 fL (81.0-99.0) 03/19/24 07:20
MCH 28.9 pg (27.0-31.0) 03/19/24 07:20
MCHC 32.4 g/dL (33.0-37.0) L 03/19/24 07:20
RDW 15.3 % (11.5-14.5) H 03/19/24 07:20
Plt Count 366 10^3/uL (130-400) 03/19/24 07:20
MPV 8.6 fL (7.4-10.4) 03/19/24 07:20
Abs Immat Gran (auto) 0.2 10^3/uL (0-0.05) H 03/19/24 07:20
Absolute Neuts (auto) 12.8 10^3/uL (1.4-6.5) H 03/19/24 07:20
Absolute Lymphs (auto) 1.4 10^3/uL (1.2-3.4) 03/19/24 07:20
Absolute Monos (auto) 1.0 10^3/uL (0.1-0.6) H 03/19/24 07:20
Absolute Eos (auto) 0.2 10^3/uL (0-0.7) 03/19/24 07:20
Absolute Basos (auto) 0.1 10^3/uL (0-0.2) 03/19/24 07:20
Immature Gran % 1.3 % (0-0.5) H 03/19/24 07:20
Neutrophils % 81.9 % (42.2-75.2) H 03/19/24 07:20
Lymphocytes % 8.6 % (20.5-51.1) L 03/19/24 07:20
Monocytes % 6.6 % (1.7-9.3) 03/19/24 07:20
Eosinophils % 1.0 % (0-6) 03/19/24 07:20
Basophils % 0.6 % (0-2) 03/19/24 07:20
Creatinine 1.5 mg/dL (0.6-1.0) H 03/19/24 07:20
Vital Signs
Vital Signs
Temp Pulse Resp BP Pulse Ox
97.4 F 71 18 112/74 91
03/19/24 16:40 03/19/24 16:40 03/19/24 16:40 03/19/24 16:40 03/19/24 16:40
[2024-03-19 16:56] LABS: Glucose - Point of Care 123 mg/dl (70-99)
[2024-03-19] MEDS: NOVOLOG FLEXPEN-LOW RESISTANCE SC (17:05)
[2024-03-19] MEDS: LIPITOR 80 MG PO (17:22)
--- NOTE | 2024-03-19 18:26 | W.PN.HOSP.TC ---
Addendum entered and electronically signed by Baldomero Machuca MD 03/19/24 23:10:
I saw and evaluated the patient. I reviewed the resident�s note and agree with findings and plan as documented in the resident�s note. Full 12 point ROS reviewed and negative except as documented Denies hematuria, still feels weak. Exam: Vitals
reviewed in chart GEN-NAD heart RRR lungs clear abd sfit abd- TTP RLQ ext- +1 pitting edema Plan
A/P:
# Left Ureteral Mass and Hydronephrosis
# Acute Blood Loss Anemia secondary to the above
? ureteral mass / malignancy versus thrombosis / probable celena mets
hold further doses of Eliquis (last was 03/16 AM).
Cont Bladder scan, currently no retention noted.
Follow H&H and transfuse if needed
Uro on board, rec endoscopic biopsy with left ureteroscopy and cystoscopy after Eliquis washout on 03/22,
left nephrostomy tube placement - 03/19
consult heme onc
# Leukocytosis from UTI
- Resolving
- urine cx- kleb pneumo
- cont ceftriaxone
# Bilateral Adrenal Adenomas
Outpt eval with PCP
# Mild Hyperkalemia, resolved
# CKD stage IIIb
CR at baseline (1.6)
# Benign Hypertension
- hold losartan
- cont coreg
# h/o CABG 2022
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
Hold losartan due to hyperkalemia
# DM-II
- SSI coverage.
- A1C 7.9%.
- hold lantus
- restart 15 qhs when ede po 1/2 dose when NPO
# h/o RLE DVT one year ago and was started with Eliquis
LE US negative for DVT
eliquis washout
# COPD-- start nebs prn
# HLD- cont atorvastatin
# PVD- hold asa plavix for now h/o b/l iliac stents
# Tob abuse-advised to quit
DVT ppx: SCD, DC TRUCK [employer]IVING IN[employer] Eliquis
Time spent coordinating care, review of plan of care with resident, review of records, med rec, consults, notes, labs, rads, d/w nursing � 58 mins
Original Note:
Today's Communication/Plan
-
- Consult heme/onc.
- Left nephrostomy placement today by IR.
- Hold apixaban.
Assessment / Plan
Assessment / Plan
Assessment
Roxanne Fontana, age 78, presented to ED complaining of LLQ abdominal pressure and gross hematuria that she has noted for 1 day. She has had worsening LLQ discomfort for a week leading up to her presentation. She reports urge to urinate but was
unable to pass much urine. Patient is a life-long smoker.
CT AP:
1. 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 Obstructing blood clot with surrounding ureteritis (infectious or inflammatory) is
considered less likely.
2. Mild left retroperitoneal and left pelvic lymphadenopathy suspicious for celena metastatic disease. Benign reactive lymph nodes are an alternative diagnostic possibility.
3. Mild diffuse urinary bladder wall thickening.
4. 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
5. Severe diverticulosis in the sigmoid colon.
6. Bilateral adrenal adenomas.
7. Severe calcific atherosclerotic plaque in the abdominal aorta with bilateral common iliac artery stents in place.
8. Very severe discogenic degenerative disease throughout the lumbar spine.
9. Very severe osteoarthritis in the left hip.
Impression
- Left ureteral mass
- Left hydroureteronephrosis
- Acute blood loss anemia
- Leukocytosis
- Bilateral adrenal adenoma
- Mild hyperkalemia
- Chronic kidney disease, stage 3B
- ASCVD, h/o CABG 2022
- Essential hypertension
- Type II diabetes mellitus
Plan
Left ureteral mass
- LLQ abdominal pressure and gross hematuria, with left ureteral mass and hydronephrosis
- ureteral mass / malignancy versus thrombosis / ureteral clot with surrounding ureteritis.
- CT AP was suggestive of a malignant process with possible early metastatic disease.
- Biopsy planned per urology.
- Holding apixaban in anticipation of biopsy and nephrostomy.
- Consulted heme/onc to evaluate alternatives to cisplatin considering her poor renal function; can follow-up as outpatient.
Left hydroureteronephrosis
- Secondary to the obstructing ureteral mass.
- Nephrostomy tube placed today by IR.
Acute blood loss anemia
- Likely secondary to the gross hematuria.
- Will follow CBC.
Leukocytosis
- Reactive vs infective
- Follow urine Cx, growing GNR
- Cont empiric Abx ceftriaxone
Bilateral adrenal adenoma
- Likely benign.
- Can be followed up by primary outpatient.
Mild hyperkalemia
- Now resolved.
- Will follow BMP.
Chronic kidney disease, stage 3B
- Stable and at baseline.
ASCVD, h/o CABG 2022
Essential hypertension
- Hold losartan due to hyperkalemia
Type II diabetes mellitus
- SSI coverage.
- A1C 7.9% on 03-17-24.
DVT prophylaxis
- SCD; hold apixaban
Code status
- Full.
Anticipated Discharge: 24 - 48 hours
Subjective/Interval History
-
Date of Service: March 19, 2024
Objective Data
-
Labs:
Laboratory Results
03/19/24
07:20
WBC 15.7 H
Hgb 9.9 L
Hct 30.6 L
Plt Count 366
PT 15.4 H
INR 1.24
APTT 32.6
Sodium 139
Potassium 5.0
Chloride 106
Carbon Dioxide 26
BUN 24 H
Creatinine 1.5 H
Glucose 146 H
Calcium 9.2
Vital Signs:
Vital Signs
Temp Pulse Resp BP Pulse Ox
97.5 F 67 18 119/63 93
03/19/24 18:10 03/19/24 18:10 03/19/24 18:10 03/19/24 18:10 03/19/24 18:10
I&O
03/18/24 03/19/24 03/20/24
06:59 06:59 06:59
Intake Total 780 / 780 960 / 960
Output Total 895 / 895 1325 / 1325
Balance -115 / -115 -365 / -365
Review of Systems
-
History Source: Patient
Constitutional: Reports No Symptoms
EENT: Reports No Symptoms Reported
Respiratory: Reports No Symptoms
Cardiac: Reports No Symptoms
Abdomen/GI: Reports Other (LLQ discomfort and pressure); Denies Nausea, Vomiting, Diarrhea or Constipated
Genitourinary: Reports Difficulty Voiding and Other (blood in urine); Denies Flank Pain, Discharge or Vaginal Discharge
Musculoskeletal: Reports No Symptoms
Neuro: Reports No Symptoms
Endocrine: Reports No Symptoms
Hematologic / Lymphatic: Reports No Symptoms
Allergy / Immunology: Reports No Symptoms
Physical Exam
-
General: No Apparent Distress and Comfortable
HEENT: Normocephalic, Atraumatic, Moist Mucous Membranes and Anicteric
Respiratory: Clear to Auscultation and Non Labored Respirations
Cardiac: Regular Rhythm and S1/S2
GI: Soft, Nondistended and Tender (LLQ pain on deep palpation)
Genito-urinary: No Costovertebral Tender
Musculoskeletal: No Clubbing, No Cyanosis and No Edema
Skin: Warm, Dry and IV Access / Catheter Site
Neuro: Awake, Alert, Oriented and Nonfocal/Grossly Intact
Hematologic / Lymphatic: No Lymphadenopathy
Psych: Calm and Intact Judgement/Insight
[2024-03-19 19:11] LABS: Hepatitis C Antibody Negative (Negative)
[2024-03-19 21:39] LABS: Glucose - Point of Care 292 mg/dl (70-99)
[2024-03-20 03:41] VITALS: BP 108/66
[2024-03-20 07:06] LABS: Glucose - Point of Care 172 mg/dl (70-99)
[2024-03-20 07:55] VITALS: BP 111/56
[2024-03-20] MEDS: COREG 12.5 MG PO (08:40)
[2024-03-20] MEDS: NOVOLOG FLEXPEN-LOW RESISTANCE 1 UNITS SC ×2 (08:40→12:49)
--- NOTE | 2024-03-20 08:41 | W.PN.HOSP.TC ---
Addendum entered and electronically signed by Baldomero Machuca MD 03/20/24 22:58:
I saw and evaluated the patient. I reviewed the resident�s note and agree with findings and plan as documented in the resident�s note. Full 12 point ROS reviewed and negative except as documented. Patient feels weak and has 'twinges' of pain @
nephrostomy tube site. Exam: Vitals reviewed in chart GEN-NAD heart RRR lungs clear abd soft ext +1 pitting edema b/l left nephrostomy tube in place bag with bloody urine Plan
A/P:
# Left Ureteral Mass and Hydronephrosis
# Acute Blood Loss Anemia secondary to hematuria
ureteral mass / malignancy versus thrombosis / probable celena mets
DC Eliquis (last was 03/16 AM).
Follow H&H and transfuse if needed
Uro on board, rec endoscopic biopsy with left ureteroscopy and cystoscopy after Eliquis washout on 03/22,
left nephrostomy tube placement - 03/19 - purulent drainage
heme onc input appreciated - for treatment plan after bx
# Leukocytosis from UTI
- increased
- urine cx- kleb pneumo S to rocephin
- cont ceftriaxone day #3
- check blood cx in am
- trend daily
# Bilateral Adrenal Adenomas
Outpt eval with PCP
# Mild Hyperkalemia, resolved
# CKD stage IIIb
CR at baseline (1.6)
# Benign Hypertension
- hold losartan
- cont coreg
# h/o CABG 2022
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
Hold losartan due to hyperkalemia
# DM-II
- SSI coverage.
- A1C 7.9%.
- restart lantus 10 qhs - 1/2 dose when NPO
# h/o RLE DVT one year ago and was started with Eliquis
-LE US negative for DVT
-eliquis washout and DC
# COPD-- start nebs prn
# HLD- cont atorvastatin
# PVD- hold asa plavix for now h/o b/l iliac stents
# Tob abuse-advised to quit
DVT ppx: SCD
Time spent coordinating care, review of plan of care with resident, review of records, med rec, consults, notes, labs, rads, d/w nursing � 52 mins
Original Note:
Today's Communication/Plan
-
- Continue ceftriaxone
- Monitor nephrostomy output.
- Continue to hold apixaban.
- Biopsy planned for .
Assessment / Plan
Assessment / Plan
Assessment
Roxanne Fontana, age 78, presented to ED complaining of LLQ abdominal pressure and gross hematuria that she has noted for 1 day. She has had worsening LLQ discomfort for a week leading up to her presentation. She reports urge to urinate but was
unable to pass much urine. Patient is a life-long smoker.
CT AP:
1. 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 Obstructing blood clot with surrounding ureteritis (infectious or inflammatory) is
considered less likely.
2. Mild left retroperitoneal and left pelvic lymphadenopathy suspicious for celena metastatic disease. Benign reactive lymph nodes are an alternative diagnostic possibility.
3. Mild diffuse urinary bladder wall thickening.
4. 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
5. Severe diverticulosis in the sigmoid colon.
6. Bilateral adrenal adenomas.
7. Severe calcific atherosclerotic plaque in the abdominal aorta with bilateral common iliac artery stents in place.
8. Very severe discogenic degenerative disease throughout the lumbar spine.
9. Very severe osteoarthritis in the left hip.
Impression
- Left ureteral mass
- Left hydroureteronephrosis
- Acute blood loss anemia
- Leukocytosis
- Bilateral adrenal adenoma
- Mild hyperkalemia
- Chronic kidney disease, stage 3B
- ASCVD, h/o CABG 2022
- Essential hypertension
- Type II diabetes mellitus
- Tobacco use disorder
Plan
Left ureteral mass
- LLQ abdominal pressure and gross hematuria, with left ureteral mass and hydronephrosis
- ureteral mass / malignancy versus thrombosis / ureteral clot with surrounding ureteritis.
- CT AP was suggestive of a malignant process with possible early metastatic disease.
- Biopsy planned on , per urology.
- Holding apixaban in anticipation of biopsy and nephrostomy.
- Consulted heme/onc to evaluate alternatives to cisplatin considering her poor renal function; can follow-up as outpatient.
- Will need PET scan outpatient.
Left hydroureteronephrosis
- Secondary to the obstructing ureteral mass.
- Nephrostomy tube placed today by IR.
Acute blood loss anemia
- Likely secondary to the gross hematuria.
- Will follow CBC.
Urinary tract infection
- Leukocytosis likely infective
- Cultures grew klebsiella pneumoniae.
- Continue ceftriaxone
Bilateral adrenal adenoma
- Likely benign.
- Can be followed up by primary outpatient.
Mild hyperkalemia
- Now resolved.
- Will follow BMP.
Chronic kidney disease, stage 3B
- Stable and at baseline.
ASCVD, h/o CABG 2022
Essential hypertension
- Hold losartan due to hyperkalemia
Type II diabetes mellitus
- SSI coverage.
- A1C 7.9% on 03-17-24.
Peripheral vascular disease
- History of bilateral iliac stents.
- Hold aspirin and clopidogrel for now.
Tobacco use disorder
- Encouraged to quit/cut back.
DVT prophylaxis
- SCD; hold apixaban
Code status
- Full.
Anticipated Discharge: > 48 hours
Subjective/Interval History
-
Date of Service: March 20, 2024
Objective Data
-
Labs:
Laboratory Results
03/20/24
08:20
WBC Pending
Hgb Pending
Hct Pending
Plt Count Pending
Sodium Pending
Potassium Pending
Chloride Pending
Carbon Dioxide Pending
BUN Pending
Creatinine Pending
Glucose Pending
Calcium Pending
Vital Signs:
Vital Signs
Temp Pulse Resp BP Pulse Ox
98.4 F 71 17 108/66 95
03/20/24 03:41 03/20/24 03:41 03/20/24 03:41 03/20/24 03:41 03/20/24 03:41
I&O
03/19/24 03/20/24 03/21/24
06:59 06:59 06:59
Intake Total 960 / 960 240 / 240
Output Total 1325 / 1325 750 / 750
Balance -365 / -365 -510 / -510
Review of Systems
-
History Source: Patient
Constitutional: Reports No Symptoms
EENT: Reports No Symptoms Reported
Respiratory: Reports No Symptoms
Cardiac: Reports No Symptoms
Abdomen/GI: Reports Abdominal Pain (mild LLQ pain on palpation)
Genitourinary: Reports Flank Pain (L mild overnight), Bleeding (blood in urine) and Other
Musculoskeletal: Reports No Symptoms
Skin: Reports No Symptoms
Neuro: Reports No Symptoms
Endocrine: Reports No Symptoms
Hematologic / Lymphatic: Reports No Symptoms
Allergy / Immunology: Reports No Symptoms
Physical Exam
-
General: No Apparent Distress and Comfortable
HEENT: Normocephalic, Atraumatic, Moist Mucous Membranes and Anicteric
Respiratory: Clear to Auscultation and Non Labored Respirations
Cardiac: Regular Rhythm and S1/S2
GI: Soft, Nondistended, Normal Bowel Sounds, Tender (mild LLQ tenderness/discomfort) and No Hepatosplenomegaly
Genito-urinary: No Costovertebral Tender, Nephrostomy Tubes (left; draining bloody urine) and Other
Musculoskeletal: No Clubbing, No Cyanosis and No Edema
Skin: Warm, Dry and IV Access / Catheter Site
Neuro: Awake, Alert, Oriented and Nonfocal/Grossly Intact
Psych: Calm
[2024-03-20 08:52] LABS: % Basophils 0.5 % (0-2); % Eosinophils 0.9 % (0-6); % Lymphocytes 7.6 % (20.5-51.1); % Monocytes 6.1 % (1.7-9.3); % Neutrophils 82.9 % (42.2-75.2); Absolute Basophils 0.1 10^3/uL (0-0.2); Absolute Eosinophils 0.2 10^3/uL (0-0.7); Absolute Immature Granulocytes 0.4 10^3/uL (0-0.05); Absolute Lymphocytes 1.4 10^3/uL (1.2-3.4); Absolute Monocytes 1.1 10^3/uL (0.1-0.6); Absolute Neutrophils 14.9 10^3/uL (1.4-6.5); Hematocrit 32.4 % (37.0-47.0); Hemoglobin 10.2 g/dL (12.0-16.0); Mean Corp Hgb Conc. 31.5 g/dL (33.0-37.0); Mean Platelet Volume 8.8 fL (7.4-10.4); Nucleated Red Blood Cells % 0 %; Platelet Count 370 10^3/uL (130-400); Red Blood Cell Count 3.52 10^6/uL (4.20-5.40); Red Cell Dist. Width 15.2 % (11.5-14.5); White Blood Cell Count 17.9 10^3/uL (4.8-10.8)
[2024-03-20 09:18] LABS: Blood Urea Nitrogen 22 mg/dl (7-17); Calcium 9.4 mg/dl (8.4-10.2); Carbon Dioxide 26 mmol/L (22-30); Chloride 104 mmol/L (98-107); Estimated Creatinine Clearance 32 ml/min; Glucose 166 mg/dl (70-99); Potassium 4.5 mmol/L (3.5-5.1); Sodium 139 mmol/L (135-145); eGFR 35.67
--- NOTE | 2024-03-20 11:27 | W.PN.URO.CBU ---
Today's Communication / Plan
-
Continue abx
Assessment / Plan
-
78F with gross hematuria and large obstructing L ureteral mass
- Hematuria improving with HGB stable
- Previously on Eliquis for DVT 1 year ago - DVT resolved on US and Eliquis discontinued
Left ureteral mass, ureteral obstruction
- Left ureteral mass concerning for urothelial carcinoma with some slightly enlarged regional lymph nodes suggestive of possible early metastatic disease
- Treatment for this may depend on presence of metastasis. Reviewed with IR - unable to biopsy percutaneously
- Assuming urothelial carcinoma, treatment will likely require left nephroureterectomy and lymph node dissection. [place] management would include neoadjuvant cisplatin based chemotherapy, which she may not tolerate per oncology
- Will likely need outpatient PET to further eval for metastatic disease
- OR for cystoscopy, left ureteroscopy, biopsy of ureteral mass
- s/p placement of L PCN 03/19 with drainage of thick purulent urine. Nephrostomy will remain in place at discharge
- Continue antibiotic for Klebsiella UTI
Bladder diverticulum
- 6cm R bladder diverticulum c/w chronic bladder outlet obstruction or voiding dysfunction
Diagnosis
-
Date of Service: March 20, 2024
-
Patient Diagnosis:
Gross hematuria
Left ureteral mass
L hydronephrosis
Leukocytosis
UTI
Post Op Day:
Subjective
-
tolerating PCN well
minimal L flank pain
Objective
-
Vital Signs
Temp Pulse Resp BP Pulse Ox
97.9 F 68 20 111/56 93
03/20/24 07:55 03/20/24 07:55 03/20/24 07:55 03/20/24 07:55 03/20/24 07:55
Intake and Output
03/19/24 03/20/24 03/21/24
06:59 06:59 06:59
Intake Total 960 / 960 240 / 240
Output Total 1325 / 1325 750 / 750
Balance -365 / -365 -510 / -510
Intake:
Oral fluids 960 / 960 240 / 240
Output:
Drain Output (Total) 150 / 150
Left Lower Back Placed in IR 150 / 150
Urinary Drain Output (Total) 150 / 150
Left Nephrostomy 150 / 150
Urine, Voided 1325 / 1325 450 / 450
Other:
Number of approximated MODERATE 2
amounts of urine
Laboratory Results
03/20/24 08:20
03/20/24 08:20
Physical Exam
-
General - well developed, well nourished, no acute distress
Chest - clear
Abdomen - soft, non-tender
- L PCN in place with some purulent debris
Skin - warm & dry with no rash
Neuro - AOx3, no motor deficits
Dressing - clean, dry, intact
[2024-03-20 11:55] VITALS: BP 121/61
[2024-03-20 11:57] LABS: Glucose - Point of Care 194 mg/dl (70-99)
--- NOTE | 2024-03-20 15:09 | CM ---
Patient seen asleep bedside. CM reviewed chart, plan for OR for cystoscopy, left ureteroscopy, biopsy of ureteral mass. CM will continue to follow for discharge planning needs.
Plan; home no needs, offer VN to patient once stable for discharge.
[2024-03-20 15:55] VITALS: BP 97/50
[2024-03-20 16:58] LABS: Glucose - Point of Care 254 mg/dl (70-99)
[2024-03-20] MEDS: LIPITOR 80 MG PO (17:37)
[2024-03-20] MEDS: NOVOLOG FLEXPEN-LOW RESISTANCE 3 UNITS SC (17:37)
[2024-03-20 19:31] VITALS: BP 96/48
[2024-03-20 21:29] LABS: Glucose - Point of Care 199 mg/dl (70-99)
[2024-03-20] MEDS: COREG PO (23:10)
[2024-03-20] MEDS: ROCEPHIN 1000 MG IV (23:10)
[2024-03-20] MEDS: LANTUS 0.100000000000000006 UNITS SC (23:11)
[2024-03-20] MEDS: STERILE WATER FOR INJECTION 10 ML IV (23:11)
[2024-03-20 23:55] VITALS: BP 105/60
[2024-03-21] MEDS: TYLENOL 1000 MG PO (00:54)
--- NOTE | 2024-03-21 07:12 | W.PN.HOSP.TC ---
Addendum entered and electronically signed by Baldomero Machuca MD 03/21/24 22:32:
I saw and evaluated the patient. I reviewed the resident�s note and agree with findings and plan as documented in the resident�s note. Full 12 point ROS reviewed and negative except as documented. Patient seen with sister present. Feels that
strength has improved no further hematuria per patient Exam: Vitals reviewed in chart GEN-NAD heart RRR lungs clear abd soft ext +1 pitting edema b/l left nephrostomy tube in place bag with pink urine Plan
A/P:
# Left Ureteral Mass and Hydronephrosis
# Acute Blood Loss Anemia secondary to hematuria
ureteral mass / malignancy versus thrombosis / probable celena mets
DC Eliquis (last was 03/16 AM).
Follow H&H and transfuse if needed < 7
Uro on board, for endoscopic biopsy with left ureteroscopy and cystoscopy on 03/22,
left nephrostomy tube placement with urine sent for analysis- GNB await sens - 03/19
heme onc input appreciated - for treatment plan after bx
NPOpMN
# Leukocytosis from UTI
- decreased
- urine cx- kleb pneumo S to rocephin
- urine cx from nephrostomy tube 03/19- GNB- await sens
- cont ceftriaxone day #4
- blood cx surveillance- NGTD
- trend CBC daily
# Bilateral Adrenal Adenomas
Outpt eval with PCP
# Mild Hyperkalemia, resolved
# CKD stage IIIb
-CR at baseline (1.6)
-avoid nephrotoxic agents
-check BMP daily
# Benign Hypertension
- hold losartan
- cont coreg
# h/o CABG 2022
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
Hold losartan due to hyperkalemia
# DM-II
- SSI coverage.
- A1C 7.9%.
- restarted lantus 10 qhs
- 1/2 dose when NPO
# h/o RLE DVT one year ago and was started on Eliquis
-LE US negative for DVT
-eliquis washout and DC after
# COPD-- cont nebs prn
# HLD- cont atorvastatin
# PVD- hold asa plavix for now h/o b/l iliac stents
# Tob abuse-advised to quit
DVT ppx: SCD
Time spent coordinating care, review of plan of care with resident, review of records, med rec, consults, notes, labs, rads, d/w nursing and sister � 55 mins
Original Note:
Today's Communication/Plan
-
- Continue ceftriaxone, day 4 today.
- Monitor nephrostomy output.
- Continue to hold apixaban.
- Biopsy planned for tomorrow.
- NPO from midnight.
- Adjust insulin dosing and check glucose Q6 with SSC.
Assessment / Plan
Assessment / Plan
Assessment
Roxanne Fontana, age 78, presented to ED complaining of LLQ abdominal pressure and gross hematuria that she has noted for 1 day. She has had worsening LLQ discomfort for a week leading up to her presentation. She reports urge to urinate but was
unable to pass much urine. Patient is a life-long smoker.
CT AP:
1. 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 Obstructing blood clot with surrounding ureteritis (infectious or inflammatory) is
considered less likely.
2. Mild left retroperitoneal and left pelvic lymphadenopathy suspicious for celena metastatic disease. Benign reactive lymph nodes are an alternative diagnostic possibility.
3. Mild diffuse urinary bladder wall thickening.
4. 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
5. Severe diverticulosis in the sigmoid colon.
6. Bilateral adrenal adenomas.
7. Severe calcific atherosclerotic plaque in the abdominal aorta with bilateral common iliac artery stents in place.
8. Very severe discogenic degenerative disease throughout the lumbar spine.
9. Very severe osteoarthritis in the left hip.
Impression
- Left ureteral mass
- Left hydroureteronephrosis
- Acute blood loss anemia
- Leukocytosis
- Bilateral adrenal adenoma
- Mild hyperkalemia
- Chronic kidney disease, stage 3B
- ASCVD, h/o CABG 2022
- Essential hypertension
- Type II diabetes mellitus
- Tobacco use disorder
Plan
Left ureteral mass
- LLQ abdominal pressure and gross hematuria, with left ureteral mass and hydronephrosis
- ureteral mass / malignancy versus thrombosis / ureteral clot with surrounding ureteritis.
- CT AP was suggestive of a malignant process with possible early metastatic disease.
- Biopsy planned on , per urology.
- Holding apixaban in anticipation of biopsy (tomorrow) and nephrostomy (performed 03-20-24).
- Consulted heme/onc to evaluate alternatives to cisplatin considering her poor renal function; can follow-up as outpatient.
- Will need PET scan outpatient.
Left hydroureteronephrosis
- Secondary to the obstructing ureteral mass.
- Nephrostomy tube placed on 03-20-24 by IR.
Acute blood loss anemia
- Likely secondary to the gross hematuria.
- Stable so far.
- Will follow CBC.
Urinary tract infection
- Leukocytosis likely infective
- Cultures grew klebsiella pneumoniae.
- Continue ceftriaxone
Bilateral adrenal adenoma
- Likely benign.
- Can be followed up by primary outpatient.
Mild hyperkalemia
- Now resolved.
- Will follow BMP.
Chronic kidney disease, stage 3B
- Stable and at baseline.
ASCVD, h/o CABG 2022
Essential hypertension
- Hold losartan due to hyperkalemia
Type II diabetes mellitus
- SSI coverage.
- A1C 7.9% on 03-17-24.
Peripheral vascular disease
- History of bilateral iliac stents.
- Hold aspirin and clopidogrel for now.
Tobacco use disorder
- Encouraged to quit/cut back.
DVT prophylaxis
- SCD; hold apixaban
Code status
- Full.
Anticipated Discharge: 24 - 48 hours
Subjective/Interval History
-
Date of Service: March 21, 2024
Objective Data
-
Labs:
Laboratory Results
03/21/24
06:00
WBC Pending
Hgb Pending
Hct Pending
Plt Count Pending
Sodium Pending
Potassium Pending
Chloride Pending
Carbon Dioxide Pending
BUN Pending
Creatinine Pending
Glucose Pending
Calcium Pending
Vital Signs:
Vital Signs
Temp Pulse Resp BP Pulse Ox
98.2 F 74 18 105/60 93
03/20/24 23:55 03/20/24 23:55 03/20/24 23:55 03/20/24 23:55 03/20/24 23:55
I&O
03/20/24 03/21/24 03/22/24
06:59 06:59 06:59
Intake Total 240 / 240 1200 / 1200
Output Total 750 / 750 375 / 375
Balance -510 / -510 825 / 825
Review of Systems
-
History Source: Patient
Constitutional: Reports No Symptoms
EENT: Reports No Symptoms Reported
Respiratory: Reports No Symptoms
Cardiac: Reports No Symptoms
Abdomen/GI: Reports No Symptoms
Genitourinary: Reports Flank Pain (L mild overnight) and Bleeding (blood in urine, less now)
Musculoskeletal: Reports No Symptoms
Skin: Reports No Symptoms
Neuro: Reports No Symptoms
Endocrine: Reports No Symptoms
Hematologic / Lymphatic: Reports No Symptoms
Allergy / Immunology: Reports No Symptoms
Physical Exam
-
General: No Apparent Distress and Comfortable
HEENT: Normocephalic, Atraumatic, Moist Mucous Membranes and Anicteric
Respiratory: Clear to Auscultation and Non Labored Respirations
Cardiac: Regular Rhythm and S1/S2
GI: Soft, Nontender, Nondistended, Normal Bowel Sounds and No Hepatosplenomegaly
Genito-urinary: No Costovertebral Tender
Musculoskeletal: No Clubbing, No Cyanosis and No Edema
Skin: Warm, Dry and IV Access / Catheter Site
Neuro: Awake, Alert, Oriented and Nonfocal/Grossly Intact
Psych: Calm
[2024-03-21 07:25] VITALS: BP 114/58
[2024-03-21 07:33] LABS: Glucose - Point of Care 150 mg/dl (70-99)
--- NOTE | 2024-03-21 07:34 | W.PN.ONC2 ---
Today's Communication / Plan
-
OR 03/22 for cystoscopy, left ureteroscopy, biopsy of ureteral mass. Await path and outpt PET staging.
Not great candidate (PS) for neoadjuvant platin based chemotherapy.
Impression
Impression
left mid ureter mass suspicious for malignancy, with mildly enlarged retroperitoneal and pelvic lymphadenopathy
s/p Left ureteral nephrostomy tube placed
Chronic kidney disease
Deep vein thrombosis June 2023
Diabetes
Coronary artery disease
Triple anticoagulant therapy with aspirin, Plavix, and Eliquis???
Plan
Plan
S/P cystoscopy and ureteroscopy on March 22. Stage unclear at this time, CT scan does suggest regional lymphadenopathy. This could be better evaluated as an outpatient with a PET scan.
For OR 03/22 for cystoscopy, left ureteroscopy, biopsy of ureteral mass
Treatment will obviously depend upon her clinical stage. My sense is that her overall performance status is borderline in terms of her ability to tolerate chemotherapy. While her renal function is not great, in and of itself that would not
preclude chemotherapy, but she seems debilitated in general.
Subjective/Objective
Chief Complaint
ACS Heme Onc
Subjective
No c/o. Denies pain
Vital Signs:
Vital Signs
Temp Pulse Resp BP Pulse Ox
98.2 F 74 18 105/60 93
03/20/24 23:55 03/20/24 23:55 03/20/24 23:55 03/20/24 23:55 03/20/24 23:55
Lab Results:
Laboratory Data
WBC 17.9 10^3/uL (4.8-10.8) H 03/20/24 08:20
Hgb 10.2 g/dL (12.0-16.0) L 03/20/24 08:20
Plt Count 370 10^3/uL (130-400) 03/20/24 08:20
PT 15.4 Sec (11.4-14.6) H 03/19/24 07:20
INR 1.24 03/19/24 07:20
APTT 32.6 Sec (23.4-35.0) 03/19/24 07:20
eGFR 35.67 03/20/24 08:20
Physical Exam
Frail female
HEENT: No Jaundice
Cardiology: S1 and S2
Pulmonary: Clear
GI: Soft
[2024-03-21] MEDS: NOVOLOG FLEXPEN-LOW RESISTANCE 1 UNITS SC ×2 (07:52→17:36)
[2024-03-21] MEDS: COREG 12.5 MG PO ×2 (07:52→21:12)
[2024-03-21 10:54] LABS: % Basophils 0.4 % (0-2); % Eosinophils 1.2 % (0-6); % Immature Granulocytes 1.9 % (0-0.5); % Lymphocytes 9.1 % (20.5-51.1); % Monocytes 6.3 % (1.7-9.3); % Neutrophils 81.1 % (42.2-75.2); Absolute Basophils 0.1 10^3/uL (0-0.2); Absolute Eosinophils 0.2 10^3/uL (0-0.7); Absolute Immature Granulocytes 0.3 10^3/uL (0-0.05); Absolute Lymphocytes 1.5 10^3/uL (1.2-3.4); Hemoglobin 9.4 g/dL (12.0-16.0); Mean Corp Hgb Conc. 31.3 g/dL (33.0-37.0); Mean Corpuscular Volume 92.6 fL (81.0-99.0); Mean Platelet Volume 8.8 fL (7.4-10.4); Nucleated Red Blood Cells % 0 %; Platelet Count 317 10^3/uL (130-400); Red Blood Cell Count 3.24 10^6/uL (4.20-5.40); Red Cell Dist. Width 15.5 % (11.5-14.5)
[2024-03-21 11:34] LABS: Glucose - Point of Care 286 mg/dl (70-99)
[2024-03-21] MEDS: NOVOLOG FLEXPEN-LOW RESISTANCE 3 UNITS SC (11:43)
[2024-03-21 11:45] LABS: Blood Urea Nitrogen 25 mg/dl (7-17); Calcium 9.3 mg/dl (8.4-10.2); Carbon Dioxide 27 mmol/L (22-30); Chloride 101 mmol/L (98-107); Estimated Creatinine Clearance 28 ml/min; Glucose 238 mg/dl (70-99); Potassium 4.8 mmol/L (3.5-5.1); Sodium 136 mmol/L (135-145)
--- NOTE | 2024-03-21 13:34 | CM ---
Patient seen bedside, reports no concerns to CM at this time. CM discussed VN referral for patient, patient reports she is scheduled for a procedure tomorrow, would potentially like a referral for VN. CM will check in with patient tomorrow in
regards to referral for a visiting nurse. CM will continue to follow for discharge planning needs.
Plan; home no needs vs VN, patient unsure if she would like VN referral as of yet.
[2024-03-21] MEDS: SENOKOT-S 1 TABLET PO (15:51)
[2024-03-21 15:55] VITALS: BP 120/57
[2024-03-21 16:38] LABS: Glucose - Point of Care 181 mg/dl (70-99)
--- NOTE | 2024-03-21 17:22 | W.PN.URO.CBU ---
Today's Communication / Plan
-
NPO at [place] for OR in AM
Assessment / Plan
-
78F with gross hematuria and large obstructing L ureteral mass
- Hematuria intermittent with HGB stable
- Previously on Eliquis for DVT 1 year ago - DVT resolved on US and Eliquis discontinued
Left ureteral mass, ureteral obstruction
- Left ureteral mass concerning for urothelial carcinoma with some slightly enlarged regional lymph nodes suggestive of possible early metastatic disease
- Treatment for this may depend on presence of metastasis. Reviewed with IR - unable to biopsy percutaneously
- Assuming urothelial carcinoma, treatment will likely require left nephroureterectomy and lymph node dissection. [place] management would include neoadjuvant cisplatin based chemotherapy, which she may not tolerate per oncology
- Will likely need outpatient PET to further eval for metastatic disease
- NPO at [place]
- OR for cystoscopy, left ureteroscopy, biopsy of ureteral mass. Urine cytology suspicious for urothelial carcinoma
- s/p placement of L PCN 03/19 with drainage of thick purulent urine. Nephrostomy will remain in place at discharge
- Continue antibiotic for Klebsiella UTI
Bladder diverticulum
- 6cm R bladder diverticulum c/w chronic bladder outlet obstruction or voiding dysfunction
Diagnosis
-
Date of Service: March 21, 2024
-
Patient Diagnosis:
Gross hematuria
Left ureteral mass
L hydronephrosis
Leukocytosis
UTI
Post Op Day:
Subjective
-
No events
Minimal hematuria today
Objective
-
Vital Signs
Temp Pulse Resp BP Pulse Ox
97.9 F 70 16 120/57 95
03/21/24 15:55 03/21/24 15:55 03/21/24 15:55 03/21/24 15:55 03/21/24 15:55
Intake and Output
03/20/24 03/21/2403/22/24
06:59 06:59 06:59
Intake Total 240 / 240 1200 / 1200
Output Total 750 / 750 570 / 570 100 / 100
Balance -510 / -510 630 / 630 -100 / -100
Intake:
Oral fluids 240 / 240 1200 / 1200
Output:
Drain Output (Total) 150 / 150 195 / 195
Left Lower Back Placed in IR 150 / 150 195 / 195
Urinary Drain Output (Total) 150 / 150 175 / 175 100 / 100
Left Nephrostomy 150 / 150 175 / 175 100 / 100
Urine, Voided 450 / 450 200 / 200
Other:
Number of approximated MODERATE 2 1
amounts of urine
Laboratory Results
03/21/24 10:39
03/21/24 10:39
Physical Exam
-
General - well developed, well nourished, no acute distress
Chest - clear
Abdomen - soft, non-tender
Skin - warm & dry with no rash
[2024-03-21] MEDS: LIPITOR 80 MG PO (17:35)
[2024-03-21] MEDS: NOVOLOG FLEXPEN-LOW RESISTANCE SC (18:05)
[2024-03-21] MEDS: LANTUS 0.0500000000000000028 UNITS SC (21:20)
[2024-03-21 21:21] LABS: Glucose - Point of Care 293 mg/dl (70-99)
[2024-03-21] MEDS: ROCEPHIN 1000 MG IV (23:51)
[2024-03-21] MEDS: STERILE WATER FOR INJECTION 10 ML IV (23:51)
[2024-03-21] MEDS: NSS 1000 IV (23:51)
[2024-03-21 23:55] VITALS: BP 91/45
[2024-03-22] VITALS (13 sets, daily range): BP systolic 98–154; BP diastolic 50–74
[2024-03-22 00:52] LABS: Glucose - Point of Care 205 mg/dl (70-99)
[2024-03-22] MEDS: NOVOLOG FLEXPEN-LOW RESISTANCE 2 UNITS SC (00:56)
[2024-03-22 06:28] LABS: Glucose - Point of Care 157 mg/dl (70-99)
[2024-03-22] MEDS: NOVOLOG FLEXPEN-LOW RESISTANCE 1 UNITS SC (06:32)
[2024-03-22] MEDS: COREG 12.5 MG PO ×2 (09:17→19:58)
[2024-03-22 10:22] LABS: % Basophils 0.5 % (0-2); % Eosinophils 1.4 % (0-6); % Immature Granulocytes 1.7 % (0-0.5); % Lymphocytes 10.1 % (20.5-51.1); % Monocytes 6.7 % (1.7-9.3); % Neutrophils 79.6 % (42.2-75.2); Absolute Basophils 0.1 10^3/uL (0-0.2); Absolute Eosinophils 0.2 10^3/uL (0-0.7); Absolute Immature Granulocytes 0.3 10^3/uL (0-0.05); Absolute Lymphocytes 1.6 10^3/uL (1.2-3.4); Absolute Monocytes 1.1 10^3/uL (0.1-0.6); Absolute Neutrophils 12.8 10^3/uL (1.4-6.5); Hematocrit 29.6 % (37.0-47.0); Hemoglobin 9.3 g/dL (12.0-16.0); Mean Corp Hgb Conc. 31.4 g/dL (33.0-37.0); Mean Corpuscular Hgb 28.8 pg (27.0-31.0); Mean Corpuscular Volume 91.6 fL (81.0-99.0); Mean Platelet Volume 8.9 fL (7.4-10.4); Nucleated Red Blood Cells % 0 %; Platelet Count 327 10^3/uL (130-400); Red Blood Cell Count 3.23 10^6/uL (4.20-5.40); Red Cell Dist. Width 15.3 % (11.5-14.5); White Blood Cell Count 16.1 10^3/uL (4.8-10.8)
[2024-03-22 10:29] LABS: Blood Urea Nitrogen 30 mg/dl (7-17); Carbon Dioxide 26 mmol/L (22-30); Chloride 107 mmol/L (98-107); Estimated Creatinine Clearance 34 ml/min; Glucose 133 mg/dl (70-99); Potassium 4.3 mmol/L (3.5-5.1); Sodium 139 mmol/L (135-145); eGFR 38.75
--- NOTE | 2024-03-22 11:15 | W.PN.HOSP.TC ---
Addendum entered and electronically signed by Baldomero Machuca MD 03/22/24 22:29:
I saw and evaluated the patient. I reviewed the resident�s note and agree with findings and plan as documented in the resident�s note. Full 12 point ROS reviewed and negative except as documented. Patient seen post cysto. Feels that strength has
improved no further hematuria per patient. 'im going home with my . im not going to rehab' Exam: Vitals reviewed in chart GEN-NAD heart RRR lungs clear abd soft ext +1 pitting edema b/l left nephrostomy tube in place bag with clear urine Plan
A/P:
# Left Ureteral Mass and Hydronephrosis
# Acute Blood Loss Anemia secondary to hematuria exacerbated by anticoagulation/eliquis
ureteral mass / malignancy versus thrombosis / probable celena mets
DC Eliquis (last was 03/16 AM).
Follow H&H and transfuse if needed < 7
endoscopic ureteral mass biopsy with left ureteroscopy and cystoscopy and fulgeration on 03/22-No active bleeding
large L ureteral papillary tumor, highly obstructive, invasive appearing and distorting ureteral wall
bladder without any tumor or lesion
large bladder diverticulum
left nephrostomy tube placed to continue on DC
heme onc input appreciated - for treatment plan after bx as OP
# Leukocytosis from UTI
- decreased
- urine cx- kleb pneumo S to rocephin
- urine cx from nephrostomy tube 03/19- same as above
- cont ceftriaxone day #5
- blood cx surveillance- NGTD
- trend CBC daily
# Bilateral Adrenal Adenomas
Outpt eval with PCP
# Mild Hyperkalemia, resolved
# CKD stage IIIb
-CR at baseline (1.6)
-avoid nephrotoxic agents
-check BMP daily
# Benign Hypertension
- hold losartan
- cont coreg
# h/o CABG 2022
Cont INGOT [employer]IPPER Coreg 12.5 BID
Hold losartan due to hyperkalemia
# DM-II
- SSI coverage.
- A1C 7.9%.
- restarted lantus 10 qhs
- 1/2 dose when NPO
# h/o RLE DVT one year ago and was started on Eliquis
-LE US negative for DVT
-eliquis washout and DC after
# COPD-- cont nebs prn
# HLD- cont atorvastatin
# PVD- hold asa plavix for now h/o b/l iliac stents
# Tob abuse-advised to quit
DVT ppx: SCD
Dispo DC home with in am
Time spent coordinating care, review of plan of care with resident, review of records, med rec, consults, notes, labs, rads, d/w nursing and CM � 58 mins
Original Note:
Today's Communication/Plan
-
- Ureteroscopy and biopsy performed today and tolerated well.
- Continue ceftriaxone, day 5 today.
- Can resume apixaban 1 day after the procedure.
- Adjust insulin dosing post-procedure with diet resumed.
- PT/OT/CM consult anticipating discharge tomorrow.
Assessment / Plan
Assessment / Plan
Assessment
Roxanne Fontana, age 78, presented to ED complaining of LLQ abdominal pressure and gross hematuria that she has noted for 1 day. She has had worsening LLQ discomfort for a week leading up to her presentation. She reports urge to urinate but was
unable to pass much urine. Patient is a life-long smoker.
CT AP:
1. 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 Obstructing blood clot with surrounding ureteritis (infectious or inflammatory) is
considered less likely.
2. Mild left retroperitoneal and left pelvic lymphadenopathy suspicious for celena metastatic disease. Benign reactive lymph nodes are an alternative diagnostic possibility.
3. Mild diffuse urinary bladder wall thickening.
4. 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
5. Severe diverticulosis in the sigmoid colon.
6. Bilateral adrenal adenomas.
7. Severe calcific atherosclerotic plaque in the abdominal aorta with bilateral common iliac artery stents in place.
8. Very severe discogenic degenerative disease throughout the lumbar spine.
9. Very severe osteoarthritis in the left hip.
Impression
- Left ureteral mass
- Left hydroureteronephrosis
- Acute blood loss anemia
- Leukocytosis
- Bilateral adrenal adenoma
- Mild hyperkalemia
- Chronic kidney disease, stage 3B
- ASCVD, h/o CABG 2022
- Essential hypertension
- Type II diabetes mellitus
- Tobacco use disorder
Plan
Left ureteral mass
- LLQ abdominal pressure and gross hematuria, with left ureteral mass and hydronephrosis
- ureteral mass / malignancy versus thrombosis / ureteral clot with surrounding ureteritis.
- CT AP was suggestive of a malignant process with possible early metastatic disease.
- Held apixaban for biopsy (03-22-24) and nephrostomy (03-20-24); resume on 03-23-24.
- Consulted heme/onc to evaluate alternatives to cisplatin considering her poor renal function; can follow-up as outpatient.
- Will need PET scan outpatient.
- Endoscopic biopsy with left ureteroscopy and cystoscopy today; tolerated it well and no immediate complications.
Left hydroureteronephrosis
- Secondary to the obstructing ureteral mass.
- Nephrostomy tube placed on 03-20-24 by IR.
Acute blood loss anemia
- Likely secondary to the gross hematuria.
- Stable so far.
- Will follow CBC.
Urinary tract infection
- Leukocytosis likely infective
- Cultures grew klebsiella pneumoniae.
- Continue ceftriaxone
Bilateral adrenal adenoma
- Likely benign.
- Can be followed up by primary outpatient.
Mild hyperkalemia
- Now resolved.
- Will follow BMP.
Chronic kidney disease, stage 3B
- Stable and at baseline.
ASCVD, h/o CABG 2022
Essential hypertension
- Hold losartan due to hyperkalemia
Type II diabetes mellitus
- SSI coverage.
- A1C 7.9% on 03-17-24.
- 1/2 dose while NPO; will adjust post-procedure.
Peripheral vascular disease
- History of bilateral iliac stents.
- Hold aspirin and clopidogrel for now.
Tobacco use disorder
- Encouraged to quit/cut back.
DVT prophylaxis
- SCD; hold apixaban
Code status
- Full.
Anticipated Discharge: 24 - 48 hours
Subjective/Interval History
-
Date of Service: March 22, 2024
Objective Data
-
Labs:
Laboratory Results
03/22/24
09:58
WBC 16.1 H
Hgb 9.3 L
Hct 29.6 L
Plt Count 327
Sodium 139
Potassium 4.3
Chloride 107
Carbon Dioxide 26
BUN 30 H
Creatinine 1.4 H
Glucose 133 H
Calcium 9.0
Vital Signs:
Vital Signs
Temp Pulse Resp BP Pulse Ox
97.9 F 65 20 128/64 93
03/22/24 07:26 03/22/24 07:26 03/22/24 07:26 03/22/24 09:17 03/22/24 07:26
I&O
03/21/24 03/22/24 03/23/24
06:59 06:59 06:59
Intake Total 1200 / 1200 900 / 900
Output Total 570 / 570 600 / 600
Balance 630 / 630 300 / 300
Review of Systems
-
History Source: Patient
Constitutional: Reports No Symptoms
EENT: Reports No Symptoms Reported
Respiratory: Reports No Symptoms
Cardiac: Reports No Symptoms
Abdomen/GI: Reports No Symptoms
Genitourinary: Reports Flank Pain (L mild overnight) and Bleeding (blood in urine, less now)
Musculoskeletal: Reports No Symptoms
Skin: Reports No Symptoms
Neuro: Reports No Symptoms
Endocrine: Reports No Symptoms
Hematologic / Lymphatic: Reports No Symptoms
Allergy / Immunology: Reports No Symptoms
Physical Exam
-
General: No Apparent Distress and Comfortable
HEENT: Normocephalic, Atraumatic, Moist Mucous Membranes and Anicteric
Respiratory: Clear to Auscultation and Non Labored Respirations
Cardiac: Regular Rhythm and S1/S2
GI: Soft, Nontender, Nondistended, Normal Bowel Sounds and No Hepatosplenomegaly
Genito-urinary: No Costovertebral Tender, Bloody Urine (significantly less compared to initial) and Nephrostomy Tubes (left)
Musculoskeletal: No Clubbing, No Cyanosis and No Edema
Skin: Warm, Dry and IV Access / Catheter Site
Neuro: Awake, Alert, Oriented and Nonfocal/Grossly Intact
Psych: Calm
[2024-03-22 11:35] LABS: Glucose - Point of Care 129 mg/dl (70-99)
[2024-03-22] MEDS: NOVOLOG FLEXPEN-LOW RESISTANCE SC (11:37)
--- NOTE | 2024-03-22 11:42 | PN.CDI ---
CDI
- -
CDI:
Physician Documentation Request
Admit Date: 03/16/24 23:07
Dear Doctor Sven,
Clinical Indicators:
Patient admitted with gross hematuria.
03/19 Oncology Consult,'Various aspects of her chart suggest that she may have been on aspirin, Plavix, as well as Eliquis.'
03/21 PN, 'Acute Blood Loss Anemia secondary to hematuria...DC Eliquis (last was 03/16 AM).'
Please clarify the likely relationship between the hematuria and anticoagulant use:
Yes, hematuria is related to/associated with/exacerbated by anticoagulant use.
No, hematuria is not related to/associated with/exacerbated by anticoagulant use.
Unable to determine
Use of terms such as suspected, likely, concern for, or probable (associated with a specific diagnosis that is being evaluated, monitored, or treated as if it exists) are acceptable and can be coded in the inpatient setting, when documented at the
time of discharge.
Thank you,
NATALIE Campo RN
CDI Specialist
available via tiger text
Please use your independent medical judgment in providing your response.
--- NOTE | 2024-03-22 12:33 | W.IMMPOSTOP ---
Surgical Immed Post Op Note
-
Primary Surgeon: Peffer
Assisting Surgeon: none
Pre-op Diagnosis: L ureteral tumor
Post-op Diagnosis: L ureteral tumor
Procedure Performed: cystoscopy, left ureteroscopy, ureteral biopsy, fulguration
Anesthesia Type: general
Specimen / Cultures: L ureteral tumor biopsy
Estimated Blood Loss: 2cc
Complications: none
Operative Findings:
No active bleeding
large L ureteral papillary tumor, highly obstructive, invasive appearing and distorting ureteral wall
bladder without any tumor or lesion
large bladder diverticulum
[2024-03-22 12:44] LABS: Glucose - Point of Care 146 mg/dl (70-99)
--- NOTE | 2024-03-22 14:00 | PTCARENOTE ---
Pt returned from PACU. Pt awake, alert and oriented x3. Pt has no c/o pain VSS 94% on 2L. Nephro tube intact draining blood tinged urine. Pt reoriented to room,call baig within reach, plan of care ongoing.
--- NOTE | 2024-03-22 15:03 | CM ---
Patient seen bedside, discussed referral to VN agency. Patient agreeable to referral to [facility], confirming [facility] can accept patient. IMM reviewed, signed, placed in chart. Patient reports she resides with her who will be able to assist her at
home. CM will continue to follow for discharge planning needs.
Plan; home with [facility] pending acceptance.
[2024-03-22 17:09] LABS: Glucose - Point of Care 276 mg/dl (70-99)
[2024-03-22] MEDS: LIPITOR 80 MG PO (17:36)
[2024-03-22] MEDS: NOVOLOG FLEXPEN-LOW RESISTANCE 3 UNITS SC (17:37)
[2024-03-22] MEDS: MIRALAX 17 GRAMS PO (20:12)
[2024-03-22 21:26] LABS: Glucose - Point of Care 361 mg/dl (70-99)
[2024-03-22] MEDS: LANTUS 0.100000000000000006 UNITS SC (21:53)
[2024-03-22] MEDS: NOVOLOG FLEXPEN 5 UNITS SC (22:00)
[2024-03-22] MEDS: TYLENOL 1000 MG PO (22:46)
[2024-03-22] MEDS: STERILE WATER FOR INJECTION 10 ML IV (23:29)
[2024-03-22] MEDS: ROCEPHIN 1000 MG IV (23:30)
[2024-03-23 04:39] LABS: Glucose - Point of Care 223 mg/dl (70-99)
[2024-03-23 07:35] VITALS: BP 120/61
[2024-03-23 07:38] LABS: Glucose - Point of Care 256 mg/dl (70-99)
--- NOTE | 2024-03-23 07:40 | W.PN.HOSP.TC ---
Addendum entered and electronically signed by Baldomero Machuca MD 03/23/24 14:16:
I saw and evaluated the patient. I reviewed the resident�s note and agree with findings and plan as documented in the resident�s note. Full 12 point ROS reviewed and negative except as documented. Patient in good spirits. Excited to go home to
. No complaints. Denies hematuria. Exam: Vitals reviewed in chart GEN-NAD heart RRR lungs clear abd soft ext +1 pitting edema b/l left nephrostomy tube in place bag with clear urine Plan
A/P:
# Acute Blood Loss Anemia secondary to hematuria exacerbated by anticoagulation/eliquis
ureteral mass / malignancy versus thrombosis / probable celena mets
resolved
DC Eliquis (last was 03/16 AM).
Follow H&H and transfuse if needed < 7
# Left Ureteral Mass and Hydronephrosis
ureteral mass / malignancy versus thrombosis / probable celena mets
endoscopic ureteral mass biopsy with left ureteroscopy and cystoscopy and fulgeration on 03/22-No active bleeding
large L ureteral papillary tumor, highly obstructive, invasive appearing and distorting ureteral wall
bladder without any tumor or lesion
large bladder diverticulum
left nephrostomy tube placed 03/19 to continue on DC- home care instructions provided
heme onc input appreciated - for treatment plan after bx as OP
# Leukocytosis from UTI
- decreased
- urine cx- kleb pneumo S to rocephin
- urine cx from nephrostomy tube 03/19- same as above
- ceftriaxone day #6
- blood cx surveillance- NGTD
- trend CBC daily
- DC home on levaquin
# Bilateral Adrenal Adenomas
Outpt eval with PCP
# Mild Hyperkalemia, resolved
# CKD stage IIIb
-CR at baseline (1.6)
-avoid nephrotoxic agents
-check BMP daily
# Benign Hypertension
- hold losartan
- cont coreg
# h/o CABG 2022
Cont TYPING SECRETARY Coreg 12.5 BID
Hold losartan due to hyperkalemia
# DM-II
- SSI coverage.
- A1C 7.9%.
- restarted lantus 10 qhs
- 1/2 dose when NPO
# h/o RLE DVT one year ago and was started on Eliquis
-LE US negative for DVT
-eliquis washout and DC after
# COPD-- cont nebs prn
# HLD- cont atorvastatin
# PVD- hold asa plavix for now h/o b/l iliac stents
# Tob abuse-advised to quit
DVT ppx: SCD
Dispo DC home with
Time spent coordinating care, review of plan of care with resident, review of records, DC planning, Transition of care, med rec, consults, notes, labs, rads, d/w nursing and CM � 35 mins
Original Note:
Today's Communication/Plan
-
- Discharge with levofloxacin.
- Anticipated discharge today.
Assessment / Plan
Assessment / Plan
Assessment
Roxanne Fontana, age 78, presented to ED complaining of LLQ abdominal pressure and gross hematuria that she has noted for 1 day. She has had worsening LLQ discomfort for a week leading up to her presentation. She reports urge to urinate but was
unable to pass much urine. Patient is a life-long smoker.
CT AP:
1. 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 Obstructing blood clot with surrounding ureteritis (infectious or inflammatory) is
considered less likely.
2. Mild left retroperitoneal and left pelvic lymphadenopathy suspicious for celena metastatic disease. Benign reactive lymph nodes are an alternative diagnostic possibility.
3. Mild diffuse urinary bladder wall thickening.
4. 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
5. Severe diverticulosis in the sigmoid colon.
6. Bilateral adrenal adenomas.
7. Severe calcific atherosclerotic plaque in the abdominal aorta with bilateral common iliac artery stents in place.
8. Very severe discogenic degenerative disease throughout the lumbar spine.
9. Very severe osteoarthritis in the left hip.
Impression
- Left ureteral mass
- Left hydroureteronephrosis
- Acute blood loss anemia
- Leukocytosis
- Bilateral adrenal adenoma
- Mild hyperkalemia
- Chronic kidney disease, stage 3B
- ASCVD, h/o CABG 2022
- Essential hypertension
- Type II diabetes mellitus
- Tobacco use disorder
Plan
Left ureteral mass
- LLQ abdominal pressure and gross hematuria, with left ureteral mass and hydronephrosis
- ureteral mass / malignancy versus thrombosis / ureteral clot with surrounding ureteritis.
- CT AP was suggestive of a malignant process with possible early metastatic disease.
- Held apixaban for biopsy (03-22-24) and nephrostomy (03-20-24); resume on 03-23-24.
- Consulted heme/onc to evaluate alternatives to cisplatin considering her poor renal function; can follow-up as outpatient.
- Will need PET scan outpatient.
- Endoscopic biopsy with left ureteroscopy and cystoscopy on 03-22-24; tolerated it well and no immediate complications.
Left hydroureteronephrosis
- Secondary to the obstructing ureteral mass.
- Nephrostomy tube placed on 03-20-24 by IR.
- Renal function has remained at baseline throughout her stay.
Acute blood loss anemia
- Likely secondary to the gross hematuria.
- Stable so far.
- Will follow CBC.
Urinary tract infection
- Leukocytosis likely infective
- Cultures grew klebsiella pneumoniae.
- Completed 5 days of ceftriaxone.
Bilateral adrenal adenoma
- Likely benign.
- Can be followed up by primary outpatient.
Mild hyperkalemia
- Now resolved.
- Will follow BMP.
Chronic kidney disease, stage 3B
- Stable and at baseline.
ASCVD, h/o CABG 2022
Essential hypertension
- Hold losartan due to hyperkalemia
Type II diabetes mellitus
- SSI coverage.
- A1C 7.9% on 03-17-24.
- 1/2 dose while NPO; will adjust post-procedure.
Peripheral vascular disease
- History of bilateral iliac stents.
- Hold aspirin and clopidogrel for now.
Tobacco use disorder
- Encouraged to quit/cut back.
Discharge planning
- Short-term rehab was recommended, based on her status and PT/OT recommendations.
- The patient wishes to go home instead.
- Will consult VN/PT/OT for regular visits.
DVT prophylaxis
- SCD; hold apixaban
Code status
- Full.
Anticipated Discharge: Today
Subjective/Interval History
-
Date of Service: March 23, 2024
Objective Data
-
Labs:
Laboratory Results
03/23/24
06:00
WBC Pending
Hgb Pending
Hct Pending
Plt Count Pending
Sodium Pending
Potassium Pending
Chloride Pending
Carbon Dioxide Pending
BUN Pending
Creatinine Pending
Glucose Pending
Calcium Pending
Vital Signs:
Vital Signs
Temp Pulse Resp BP Pulse Ox
97.8 F 69 18 99/54 92
03/22/24 23:40 03/22/24 23:40 03/22/24 23:40 03/22/24 23:40 03/23/24 00:48
I&O
03/22/24 03/23/24 03/24/24
06:59 06:59 06:59
Intake Total 900 / 900 1190 / 1190
Output Total 600 / 600 675 / 675
Balance 300 / 300 515 / 515
Review of Systems
-
History Source: Patient
Constitutional: Reports No Symptoms
EENT: Reports No Symptoms Reported
Respiratory: Reports No Symptoms
Cardiac: Reports No Symptoms
Abdomen/GI: Reports No Symptoms
Genitourinary: Reports No Symptoms and Bleeding (blood in urine, less now)
Musculoskeletal: Reports No Symptoms
Skin: Reports No Symptoms
Neuro: Reports No Symptoms
Endocrine: Reports No Symptoms
Hematologic / Lymphatic: Reports No Symptoms
Allergy / Immunology: Reports No Symptoms
Physical Exam
-
General: No Apparent Distress and Comfortable
HEENT: Normocephalic, Atraumatic, Moist Mucous Membranes and Anicteric
Respiratory: Clear to Auscultation and Non Labored Respirations
Cardiac: Regular Rhythm and S1/S2
GI: Soft, Nontender, Nondistended, Normal Bowel Sounds and No Hepatosplenomegaly
Genito-urinary: No Costovertebral Tender, Bloody Urine (very minimal; significantly less compared to initial) and Nephrostomy Tubes (left)
Musculoskeletal: No Clubbing, No Cyanosis and No Edema
Skin: Warm, Dry and IV Access / Catheter Site
Neuro: Awake, Alert, Oriented and Nonfocal/Grossly Intact
Psych: Calm
--- NOTE | 2024-03-23 07:46 | W.DCSUMMARY ---
Addendum entered and electronically signed by Baldomero Machuca MD 03/23/24 14:10:
Attending Addendum:
Read reviewed and agree. See same day progress note for additional details. Will DC on levaquin 500mg x 7 days
Max Machuca MD
Original Note:
Documented by User: Kevin Chamorro MD, Resident 03/23/24 13:47
Discharge Summary
Discharge Data
Date of Admission: 03/16/24
Date of Discharge: 03/23/24
-
Pending Results: No
Hospital Course
Primary discharge diagnosis
- Left ureteral mass
Secondary discharge diagnoses
- Left hydroureteronephrosis
- Acute blood loss anemia
- Urinary tract infection
- Leukocytosis
- Bilateral adrenal adenoma
- Mild hyperkalemia
- Chronic kidney disease, stage 3B
- ASCVD, h/o CABG 2022
- Essential hypertension
- Type II diabetes mellitus
- Tobacco use disorder
Hospital Course
Roxanne Barth, age 78, presented to the emergency department on 03-16-24 with gross hematuria, inability to void urine, and LLQ discomfort for 1 day; the former had been progressing for [address] AP showed severe left hydroureteronephrosis
secondary to left mid ureter mass. This was highly suspicious for urothelial carcinoma, with urine test indicating high grade urothelial carcinoma. Left retroperitoneal and pelvic lymphadenopathy was suspicious for metastatic disease. Urine studies
indicated an infection, and she was started on ceftriaxone. Acute anemia was also noted on her labs, which remained stable by the time of her discharge; this was presumed to be secondary to acute blood loss in urine.
A left nephrostomy tube was placed successfully on 03-19-24 without complications, and she underwent a cysto-ureteroscopy with biopsy on 03-22-24. She recovered fine after both procedures and has not had any complications. Her vitals and blood work
remained stable throughout the admission. She was recommended short-term rehab, but wishes to go home instead. She will go home with the nephrostomy tube, and get VN, PT and OT care. CBC and BMP in 1 week. Follow-up with urology and oncology
outpatient for a potential PET scan and further management. Went over instructions to care for the nephrostomy tube; visiting nurses will help. Discharge on a 7 day course of levofloxacin.
Discharge Plan
-
Patient Disposition: Home with Home Care
Discharge Diagnosis/Procedures: Left ureteral mass
Condition: Good
Diet: As tolerated
Activity: As tolerated
Driving Restrictions: As prior to admission
Blood Work: CBC, BMP, UA and UC in 1 week
Other Services: VN, PT and OT
Wound Care: Handout given with detailed instructions on care for a nephrostomy tube
Referrals:
Jose Fountain PA-C [Family Provider] -
Prescriptions:
New
acetaminophen [Tylenol Extra Strength] 500 mg Tablet
500 mg PO Q6HPRN PRN (Reason: mild pain/STEVENSON/temp> 100.4F) Qty: 30 0RF
atorvastatin 80 mg Tablet
80 mg PO QPM 90 Days Qty: 90 0RF
levofloxacin 750 mg tablet
750 mg PO DAILY 7 Days Qty: 7 0RF
Continued
carvedilol 12.5 MG tablet
12.5 mg PO BID
insulin glargine [Lantus U-100 Insulin] 100 UNIT/ML solution
11 units SQ HS
losartan 25 mg Tablet
25 mg PO DAILY
Eliquis 2.5 mg Tablet
5 mg PO BID
aspirin 81 mg Tablet,Chewable
81 mg PO HS
Discontinued
atorvastatin 20 MG tablet
80 mg PO QPM
Discharge Orders:
Discharge Patient (As Directed); Ordered 03/23/24
Ordered By: Kevin Chamorro
Discharge Date and Time
Print Language: [place]

Documented by User: Baldomero Machuca MD 03/23/24 14:08
Discharge Summary
Discharge Data
Date of Admission: 03/16/24
Date of Discharge: 03/23/24
Discharge Plan
-
Patient Disposition: Home with Home Care
Discharge Diagnosis/Procedures: Left ureteral mass
Condition: Good
Diet: As tolerated
Activity: As tolerated
Driving Restrictions: As prior to admission
Blood Work: CBC, BMP, UA and UC in 1 week
Other Services: VN, PT and OT
Wound Care: Handout given with detailed instructions on care for a nephrostomy tube
Referrals:
Jose Fountain PA-C [Family Provider] -
Prescriptions:
New
acetaminophen [Tylenol Extra Strength] 500 mg Tablet
500 mg PO Q6HPRN PRN (Reason: mild pain/STEVENSON/temp> 100.4F) Qty: 30 0RF
atorvastatin 80 mg Tablet
80 mg PO QPM 90 Days Qty: 90 0RF
levofloxacin 750 mg tablet
750 mg PO DAILY 7 Days Qty: 7 0RF
Continued
carvedilol 12.5 MG tablet
12.5 mg PO BID
insulin glargine [Lantus U-100 Insulin] 100 UNIT/ML solution
11 units SQ HS
losartan 25 mg Tablet
25 mg PO DAILY
Eliquis 2.5 mg Tablet
5 mg PO BID
aspirin 81 mg Tablet,Chewable
81 mg PO HS
Discontinued
atorvastatin 20 MG tablet
80 mg PO QPM
Discharge Orders:
Discharge Patient (As Directed); Ordered 03/23/24
Ordered By: Kevin Chamorro
Discharge Date and Time
Print Language: [place]
[2024-03-23 08:30] VITALS: BP 105/47
[2024-03-23 08:37] LABS: % Basophils 0.4 % (0-2); % Eosinophils 0.1 % (0-6); % Immature Granulocytes 1.2 % (0-0.5); % Lymphocytes 5.4 % (20.5-51.1); % Monocytes 4.4 % (1.7-9.3); % Neutrophils 88.5 % (42.2-75.2); Absolute Basophils 0.1 10^3/uL (0-0.2); Absolute Immature Granulocytes 0.2 10^3/uL (0-0.05); Absolute Monocytes 0.8 10^3/uL (0.1-0.6); Absolute Neutrophils 17.1 10^3/uL (1.4-6.5); Hemoglobin 9.2 g/dL (12.0-16.0); Mean Corp Hgb Conc. 32.9 g/dL (33.0-37.0); Mean Corpuscular Volume 88.3 fL (81.0-99.0); Mean Platelet Volume 9.1 fL (7.4-10.4); Nucleated Red Blood Cells % 0 %; Platelet Count 294 10^3/uL (130-400); Red Blood Cell Count 3.17 10^6/uL (4.20-5.40); Red Cell Dist. Width 15.2 % (11.5-14.5); White Blood Cell Count 19.3 10^3/uL (4.8-10.8)
[2024-03-23] MEDS: NOVOLOG FLEXPEN-LOW RESISTANCE 3 UNITS SC (09:01)
[2024-03-23] MEDS: COREG 12.5 MG PO (09:03)
[2024-03-23 09:09] VITALS: BP 105/47; PULSE 71; O2SAT 94
[2024-03-23 09:28] LABS: Blood Urea Nitrogen 34 mg/dl (7-17); Calcium 8.9 mg/dl (8.4-10.2); Carbon Dioxide 24 mmol/L (22-30); Chloride 104 mmol/L (98-107); Estimated Creatinine Clearance 34 ml/min; Glucose 216 mg/dl (70-99); Potassium 4.5 mmol/L (3.5-5.1); Sodium 137 mmol/L (135-145); eGFR 38.75
--- NOTE | 2024-03-23 10:40 | CM ---
Per physician patient is for discharge to home today with [facility].
Plan; Home with [facility]
[2024-03-23 11:47] LABS: Glucose - Point of Care 239 mg/dl (70-99)
[2024-03-23] MEDS: NOVOLOG FLEXPEN-LOW RESISTANCE 2 UNITS SC (11:51)
[2024-03-23] MEDS: SENOKOT-S 1 TABLET PO (12:25)
--- NOTE | 2024-03-23 12:26 | VNURNOTE ---
Home Health Liaison met with patient at 1130 to discuss [facility] nurse/therapy, visits, schedule and homebound status. Patient is agreeable and understands that visits at home will be 2-3 x per week to assess and teach medical management and PCN tube
care. Patient stated that her and sister(nurse) can assist with care.
[facility] brochure provided with contact information. Patient is aware that [facility] will contact her for start of care in 1-2 days after discharge from .
[facility] referral completed in [facility] Port.
[2024-03-23 14:23] VITALS: BP 132/65
== END 2024-03-23 15:19 | disposition home health service (06) | DRG 687 ==
LOC: 4 EAST ACU 23:07
PROVIDERS: Emergency Medicine; Internal Medicine; Nurse Practitioner; Registered Nurse; Student in an Organized Health Care Education/Training Program; ADMITTING PHYSICIAN Hospitalist; ATTENDING PHYSICIAN Family Medicine; CONSULT PHYSICIAN Internal Medicine Hematology & Oncology; CONSULT PHYSICIAN Urology; EMERGENCY PHYSICIAN Emergency Medicine; FAMILY PHYSICIAN Physician Assistant Medical
PROC: 0T9130Z Drainage of Left Kidney with Drainage Device, Percutaneous Approach (ICD-10-PCS; 2024-03-19)
PROC: BT1F1ZZ Fluoroscopy of Left Kidney, Ureter and Bladder using Low Osmolar Contrast (ICD-10-PCS; 2024-03-22)
PROC: 0TB78ZX Excision of Left Ureter, Via Natural or Artificial Opening Endoscopic, Diagnostic (ICD-10-PCS; 2024-03-22)
DX: C68.9 Malignant neoplasm of urinary organ, unspecified (principal); D62 Acute posthemorrhagic anemia; N13.6 Pyonephrosis; N39.0 Urinary tract infection, site not specified; D68.32 Hemorrhagic disorder due to extrinsic circulating anticoagulants; N28.89 Other specified disorders of kidney and ureter; D75.839 Thrombocytosis, unspecified; D35.01 Benign neoplasm of right adrenal gland; D35.02 Benign neoplasm of left adrenal gland; E87.5 Hyperkalemia; I25.10 Atherosclerotic heart disease of native coronary artery without angina pectoris; N18.32 Chronic kidney disease, stage 3b; I12.9 Hypertensive chronic kidney disease with stage 1 through stage 4 chronic kidney disease, or unspecified chronic kidney disease; N32.3 Diverticulum of bladder; K57.30 Diverticulosis of large intestine without perforation or abscess without bleeding; M16.12 Unilateral primary osteoarthritis, left hip; F17.200 Nicotine dependence, unspecified, uncomplicated; E11.22 Type 2 diabetes mellitus with diabetic chronic kidney disease; J44.89 Other specified chronic obstructive pulmonary disease; E78.00 Pure hypercholesterolemia, unspecified
CPT/HCPCS: 88305; 50432; 51798; 74176; 74420; 76000; 80048; 80053; 81003; 81015; 82962; 83036; 83690; 85025; 85027; 85610; 85730; 86803; 87040; 87077; 87086; 87186; 88112; 93970; 97162; 97166; 99152; 99285; C1729; C1769

== ENCOUNTER 2024-03-28 14:25 | Emergency (ER) | payer OTHER, SELFPAY ==
[2024-03-28 14:30] VITALS: BP 124/50
--- NOTE | 2024-03-28 15:28 | ED.GENMED ---
History of Present Illness
General
Chief Complaint: Bowel Problem
Time Seen by Provider: 03/28/24 14:42
Travel History
Have you had any contact with someone who has COVID-19?: No
Do you have any symptoms of coronavirus? Fever > 100 degrees, chills, cough, shortness of breath, sore throat, loss of taste or smell, muscle aches, or headache?: No
History of Present Illness
History of Present Illness:
78-year-old female presents to the emergency department for evaluation of constipation. 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
fulguration of the left ureteral tumor and has a subsequent nephrostomy tube in place. She states she did not have a bowel movement during her last several days of hospitalization. She has tried MiraLAX on 2 occasions without improvement. Denies
any abdominal pain or rectal pain at this time. No rectal bleeding noted
Past History
Past History
ED Past Medical History: CAD, HTN, Hypercholesterolemia and NIDDM
ED Past Surgical History: Cardiac and Orthopedic
Social History
Tobacco: Non-smoker
Alcohol: None
Personal:
Living: with family
Family History
Family History: Negative Diabetes, Hypertension, Early CAD, Asthma or Cancer
Review of Systems
Review of Systems
Allergies reviewed?: Yes
All Other Systems: ROS reviewed and negative except as documented in HPI and ROS
Phy Exam
Physical Exam
Physical Exam:
GEN: Well appearing, NAD, WDWN
HEENT: Oral mucosa moist, no scleral icterus
Cardiac: Regular rate
Lung: No respiratory distress, no tachypnea
Abdomen: Soft, nontender, no rigidity or peritoneal signs, left nephrostomy tube in place with site clean and dry
MSK: No gross deformity or injuries
Skin: Good color, no pallor or jaundice, no rashes
Neuro: AO x3, moves all extremities freely
Psych: Calm, cooperative
Course
Orders/Labs/Results
Orders:
Orders
03/28/24 14:54
CR Obstruct Series W/pa Chest Urgent
Comment:
Reason For Exam: constipation/abd pain
03/28/24 15:31
Magnesium Citrate [Citroma] 300 ml PO ONCE ONE
Vital Signs
Initial and Last Documented VS:
Initial Vital Signs
Temp Pulse Resp BP Pulse Ox
97.8 F 79 16 124/50 95
03/28/24 14:30 03/28/24 14:30 03/28/24 14:30 03/28/24 14:30 03/28/24 14:30
Last Documented Vital Signs
Temp Pulse Resp BP Pulse Ox
97.8 F 79 16 124/50 95
03/28/24 14:30 03/28/24 14:30 03/28/24 14:30 03/28/24 14:30 03/28/24 14:30
MDM/Problems Addressed
MDM/Problems Addressed:
Patient has no clinical symptoms suspicious for fecal impaction citrate count MiraLAX usage. No indication for CT
*Critical Care Note
Total Time (30-74mins, 75-104mins- exclusive of procedures): Not Applicable
ED Attending Note
-
Portions of this chart may have been created with voice recognition software.� Occasional wrong word or��sound alike� substitutions may have occurred due to the inherent limitations of voice recognition software.
Discharge Plan
Departure
Patient Disposition: Home (Routine Discharge)
Date of Disposition: 03/28/24
Time of Disposition: 15:35
Patient with high blood pressure during this ER visit?: No
Discharge Problem:
Constipation
Instructions: Constipation, Adult (DC)
Prescriptions:
No Action
carvedilol 12.5 MG tablet
12.5 mg PO BID
insulin glargine [Lantus U-100 Insulin] 100 UNIT/ML solution
11 units SQ HS
losartan 25 mg Tablet
25 mg PO DAILY
Eliquis 2.5 mg Tablet
5 mg PO BID
aspirin 81 mg Tablet,Chewable
81 mg PO HS
acetaminophen [Tylenol Extra Strength] 500 mg Tablet
500 mg PO Q6HPRN PRN (Reason: mild pain/STEVENSON/temp> 100.4F) Qty: 30 0RF
atorvastatin 80 mg Tablet
80 mg PO QPM 90 Days Qty: 90 0RF
levofloxacin 500 mg tablet
500 mg PO DAILY 7 Days Qty: 7 0RF
Rx Instructions:
Please cancel the previous 750 mg prescription.
Referrals:
Jose Fountain PA-C [Family Provider] -
Activity Restrictions/Additional Instructions:
If the magnesium citrate does not work, continue Miralax twice daily (once in the morning, once in the evening). You should also take 100mg docusate (Colace) twice daily as well.
Increase fluid intake
Interventions
Interventions:
*Risk Screen - Suicide Last Done: 03/28/24 14:32
*General Assessment Last Done: 03/28/24 14:32
*Neglect/Abuse Screening Last Done: 03/28/24 14:32
ED- Fall Risk Assessment Last Done: 03/28/24 16:12
*ED COVID-19 Vaccine History Last Done: 03/28/24 14:32
*Nursing Disposition Last Done: 03/28/24 16:12
NN-Biwkoa-Lbhsvcyxbi Assessment Last Done: 03/28/24 14:33
Discharge Date and Time
Discharge Date/Time: 03/28/24 16:13
Print Language: UPPER SORBIAN
[2024-03-28] MEDS: CITROMA 300 ML PO (15:34)
== END 2024-03-28 16:13 | disposition home or self-care (01) ==
LOC: EMR 14:25
PROVIDERS: EMERGENCY PHYSICIAN Emergency Medicine; FAMILY PHYSICIAN Physician Assistant Medical
DX: K59.00 Constipation, unspecified (principal); I25.10 Atherosclerotic heart disease of native coronary artery without angina pectoris; I10 Essential (primary) hypertension; E78.00 Pure hypercholesterolemia, unspecified; E11.9 Type 2 diabetes mellitus without complications
CPT/HCPCS: 99283; 74022

== ENCOUNTER 2024-03-31 16:35 | Inpatient (IN) | payer OTHER, SELFPAY ==
[2024-03-31 10:50] VITALS: BP 111/58
[2024-03-31 11:39] VITALS: BMI 27.7
[2024-03-31 11:46] VITALS: BP 108/64
--- NOTE | 2024-03-31 11:51 | ED.GENMED ---
History of Present Illness
General
Chief Complaint: Abnormal Lab Value
Source: patient, family and physician
Exam Limitations: none
Time Seen by Provider: 03/31/24 11:30
Travel History
Have you had any contact with someone who has COVID-19?: No
Do you have any symptoms of coronavirus? Fever > 100 degrees, chills, cough, shortness of breath, sore throat, loss of taste or smell, muscle aches, or headache?: No
History of Present Illness
History of Present Illness:
78-year-old female with a history of recent diagnosis of urologic cancer. Has a nephrostomy tube. Had routine labs done and follow-up. After discussion with her primary physician they were concerned with her white count of 20,000 and a creatinine
of 2+. Patient feels fine.
Past History
Past History
ED Past Medical History: CAD, HTN, Hypercholesterolemia and NIDDM
ED Past Surgical History: Cardiac and Orthopedic
Social History
Tobacco: Non-smoker
Alcohol: None
Personal:
Living: with family
Family History
Family History: Negative Diabetes, Hypertension, Early CAD, Asthma or Cancer
Review of Systems
Review of Systems
All Other Systems: Not applicable
Constitutional: Denies fever
Respiratory: Reports no symptoms
Cardiac: Reports no symptoms
ABD/GI: Reports no symptoms
Phy Exam
Physical Exam
Physical Exam:
GENERAL: Alert and oriented in no apparent distress
EYE: Orbits normal.
NECK: Supple
CARDIAC: Regular rate and rhythm without any obvious murmurs.
LUNGS: Clear breath sounds,normal
ABDOMEN: Soft, without focal tenderness or distention. Nephrostomy tube left lower back pain area. No CVA tenderness
NEUROLOGICAL: Alert and oriented , grossly non-focal
SKIN: Warm and dry, no rash or lesion, no discoloration, skin intact.
MUSCULOSKELETAL: No edema,no deformity.Good color
PSYCH: Normal and appropriate interaction.
Course
Orders/Labs/Results
Orders:
Orders
03/31/24 11:44
IV Insert/Care/Rem.- Treatment PRN
03/31/24 13:56
Complete Blood Count/With Diff Urgent
Blood Culture Q30M
LUCY Source: Blood/Venous
Specimen Description:
Blood Culture Q30M
LUCY Source: Blood/Venous
Specimen Description:
03/31/24 14:30
Basic Metabolic Panel Urgent
03/31/24 15:41
0.9% Sodium Chloride 1000 ml [Nss] 1,000 ml IV BOLUS
03/31/24 16:03
UROLOGY CONSULT Routine
Consulting Provider: Dedrick Camargo
Was physician already notified: Yes
Comment: urothelial CA, ABIOLA
Renal Only US [US Renal Only W/O Bladder] Urgent
Comment:
Reason For Exam: ABIOLA, urothelial CA
03/31/24 16:04
NEPHROLOGY CONSULT Routine
Consulting Provider: Emanuel Mohamud V.
Was physician already notified: Yes
Reason for consult: urothelial CA, ABIOLA
03/31/24 16:08
IRAD CONSULT Routine
Consulting Provider: Brendan Sherwood
Was physician already notified: Yes
Reason for Consult/Procedure: ABIOLA, recent L PCN
Acknowledgement that appropriate orders are entered: Yes
03/31/24 16:15
0.9% Sodium Chloride 1000 ml [Nss] 1,000 ml IV 125 mls/hr
03/31/24 16:18
Admit/Transfer Patient As Directed
Co-Sign Provider:
Level of Care: Inpatient admission
Assign to:: Medical/Surgical
Physician / Group: James
Diagnosis: ABIOLA
Reason for Hospitalization: ABIOLA
Expected length of stay greater than two midnights?: Yes
ELOS- Estimated Length of Stay in days: 4
I certify the patient meets the requirements for IP care: Yes
03/31/24 16:20
Code Status As Directed
Resuscitation Status: Full Code
Abnormal Lab Results
03/31/24 03/31/24
13:56 14:30
WBC 18.6 H 10^3/uL
(4.8-10.8)
RBC 3.58 L 10^6/uL
(4.20-5.40)
Hgb 10.4 L g/dL
(12.0-16.0)
Hct 32.0 L %
(37.0-47.0)
MCHC 32.5 L g/dL
(33.0-37.0)
RDW 16.3 H %
(11.5-14.5)
Abs Immat Gran (auto) 0.3 H 10^3/uL
(0-0.05)
Absolute Neuts (auto) 15.5 H 10^3/uL
(1.4-6.5)
Absolute Monos (auto) 1.1 H 10^3/uL
(0.1-0.6)
Immature Gran % 1.5 H %
(0-0.5)
Neutrophils % 83.2 H %
(42.2-75.2)
Lymphocytes % 7.8 L %
(20.5-51.1)
BUN 50 H mg/dl
(7-17)
Creatinine 2.3 H mg/dL
(0.6-1.0)
Glucose 109 H mg/dl
(70-99)
03/31/24 13:56
03/31/24 14:30
Vital Signs
Initial and Last Documented VS:
Initial Vital Signs
Temp Pulse Resp BP Pulse Ox
97.9 F 72 16 111/58 94
03/31/24 10:50 06/15/24 10:50 03/31/24 10:50 03/31/24 10:50 03/31/24 10:50
Last Documented Vital Signs
Temp Pulse Resp BP Pulse Ox
97.9 F 81 22 108/64 95
03/31/24 10:50 03/31/24 15:00 03/31/24 15:00 03/31/24 11:46 03/31/24 11:46
*Critical Care Note
Total Time (30-74mins, 75-104mins- exclusive of procedures): Not Applicable
ED Attending Note
-
Portions of this chart may have been created with voice recognition software.� Occasional wrong word or��sound alike� substitutions may have occurred due to the inherent limitations of voice recognition software.
Discharge Plan
Departure
Patient Disposition: Admit
Date of Disposition: 03/31/24
Time of Disposition: 16:04
Presentation/result/management discussed w/ accepting MD/DO: Hospitalist
Discharge Problem:
Acute kidney injury, History ureteral CA, Chronic leukocytosis
Prescriptions:
No Action
carvedilol 12.5 MG tablet
12.5 mg PO BID
insulin glargine [Lantus U-100 Insulin] 100 UNIT/ML solution
11 units SQ HS
losartan 25 mg Tablet
25 mg PO DAILY
Eliquis 2.5 mg Tablet
5 mg PO BID
aspirin 81 mg Tablet,Chewable
81 mg PO HS
acetaminophen [Tylenol Extra Strength] 500 mg Tablet
500 mg PO Q6HPRN PRN (Reason: mild pain/STEVENSON/temp> 100.4F) Qty: 30 0RF
atorvastatin 80 mg Tablet
80 mg PO QPM 90 Days Qty: 90 0RF
levofloxacin 500 mg tablet
500 mg PO DAILY 7 Days Qty: 7 0RF
Rx Instructions:
Please cancel the previous 750 mg prescription.
Referrals:
Jose Fountain PA-C [Family Provider] -
Interventions
Interventions:
*Risk Screen - Suicide Last Done: 03/31/24 11:39
*General Assessment Last Done: 03/31/24 11:39
*Neglect/Abuse Screening Last Done: 03/31/24 11:39
ED- Fall Risk Assessment Last Done: 03/31/24 11:43
*ED COVID-19 Vaccine History Last Done: 03/31/24 10:50
Discharge Date and Time
Print Language: LAO
[2024-03-31 14:08] LABS: % Basophils 0.5 % (0-2); % Eosinophils 0.9 % (0-6); % Immature Granulocytes 1.5 % (0-0.5); % Lymphocytes 7.8 % (20.5-51.1); % Monocytes 6.1 % (1.7-9.3); % Neutrophils 83.2 % (42.2-75.2); Absolute Basophils 0.1 10^3/uL (0-0.2); Absolute Eosinophils 0.2 10^3/uL (0-0.7); Absolute Immature Granulocytes 0.3 10^3/uL (0-0.05); Absolute Lymphocytes 1.5 10^3/uL (1.2-3.4); Absolute Monocytes 1.1 10^3/uL (0.1-0.6); Absolute Neutrophils 15.5 10^3/uL (1.4-6.5); Hemoglobin 10.4 g/dL (12.0-16.0); Mean Corp Hgb Conc. 32.5 g/dL (33.0-37.0); Mean Corpuscular Hgb 29.1 pg (27.0-31.0); Mean Corpuscular Volume 89.4 fL (81.0-99.0); Mean Platelet Volume 9.6 fL (7.4-10.4); Nucleated Red Blood Cells % 0 %; Platelet Count 261 10^3/uL (130-400); Red Blood Cell Count 3.58 10^6/uL (4.20-5.40); Red Cell Dist. Width 16.3 % (11.5-14.5); White Blood Cell Count 18.6 10^3/uL (4.8-10.8)
[2024-03-31 15:11] LABS: Blood Urea Nitrogen 50 mg/dl (7-17); Calcium 8.9 mg/dl (8.4-10.2); Carbon Dioxide 26 mmol/L (22-30); Chloride 107 mmol/L (98-107); Estimated Creatinine Clearance 21 ml/min; Glucose 109 mg/dl (70-99); Potassium 4.4 mmol/L (3.5-5.1); Sodium 139 mmol/L (135-145); eGFR 21.36
--- NOTE | 2024-03-31 15:57 | HPS.HSE ---
Family Physician
-
Family Physician: Jose Fountain PA-C
Chief Complaint
-
Abnormal labs
History of Present Illness
78 y/o F with PMHx:
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
03/22/24 Cystoscopy, left retrograde pyelogram, left ureteroscopy, left ureteral tumor biopsy, fulguration of left ureteral tumor
Recent UTI (discharged 03/23/24 on 7 days Levaquin)
Leukocytosis
CKD3b
CAD s/p CABG 2022
Essential hypertension
DM2
Tobacco abuse disorder
h/o RLE DVT approx 1 year ago, now off Eliquis
Presents with a chief complaint of abnormal labs. Patient has no other acute complaints. She denies chest pain, nausea, vomiting, diarrhea, fevers. She does report that she has shortness of breath climbing a flight of stairs but this is unchanged
over the last few years since she had her left shoulder dislocated.
Medical History
Past Medical History
Past Medical History: Reports Other (as per HPI)
Past Surgical History: Reports Other (as per HPI)
Social History
Tobacco: Smoker
Alcohol: None
Drug: None
Family History
Family History: Not pertinent
Allergies / Home Medications
Allergies reflects when Allergies were last updated in [facility].
Home Medications with original date entered in [facility]
Allergy/Medication List:
Allergies
Allergy/AdvReac Type Severity Reaction Status Date / Time
No Known Allergies Allergy Verified 03/16/24 19:01
Home Medications
carvedilol 12.5 mg tablet 12.5 mg PO BID Blood Pressure 03/17/11
insulin glargine 100 unit/mL subcutaneous solution (Lantus U-100 Insulin) 11 units SQ HS Diabetes 06/05/18
apixaban 2.5 mg tablet (Eliquis) 5 mg PO BID Blood Clot Prevention/Tx 03/16/24
losartan 25 mg tablet 25 mg PO DAILY Blood Pressure 03/16/24
aspirin 81 mg chewable tablet 81 mg PO HS 03/17/24
acetaminophen 500 mg tablet (Tylenol Extra Strength) 500 mg PO Q6HPRN PRN mild pain/STEVENSON/temp> 100.4F #30 tabs 03/23/24
atorvastatin 80 mg tablet 80 mg PO QPM 90 days #90 tabs 03/23/24
levofloxacin 500 mg tablet 500 mg PO DAILY UTI 7 days #7 tabs 03/23/24
Review of Systems
-
History Source: Patient
A 12 point ROS was completed and negative except as noted: Yes
Physical Exam
Vital Signs
Vital Signs
Temp Pulse Resp BP Pulse Ox
97.9 F 81 22 108/64 95
03/31/24 10:50 03/31/24 15:00 03/31/24 15:00 03/31/24 11:46 03/31/24 11:46
Physical Exam
General: Other (.)
Laboratory Results
-
03/31/24 13:56
03/31/24 14:30
Impression/Plan
-
Gen: NAD, AAOx3.
Eyes: EOMI, PERRLA, no scleral icterus.
Neck: supple.
CV: RRR, +S1/S2, no m/r/g.
Resp: CTAB, no rales, wheezes, or rhonchi.
Abd: +BS, soft, NT, ND
Skin: No rashes.
: L PCN with scant, clear urine (was just emptied)
Neuro: CN 2-12 intact, non-focal.
Psych: Normal mood and affect.
AKIon CKD3b:
-1L NS bolus ordered in ER
-cont with NS @ 125cc/hr
-hold ARB
-check renal U/S
-c/s renal and urology
Other problems:
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
03/22/24 Cystoscopy, left retrograde pyelogram, left ureteroscopy, left ureteral tumor biopsy, fulguration of left ureteral tumor
Recent UTI (discharged 03/23/24 on 7 days Levaquin)
Leukocytosis, chronic
CAD s/p CABG 2022: Cont ASA/statin/BB
Essential hypertension: Cont Coreg, hold ARB with ABIOLA
DM2: Cont Lantus, SSI/accuchecks
Tobacco abuse disorder: Nicotine patch
FULL/Lovenox
[2024-03-31] MEDS: NSS 1000 IV ×2 (16:20→18:17)
[2024-03-31 18:15] VITALS: BP 121/53; BMI 27.0
[2024-03-31] MEDS: NOVOLOG FLEXPEN-MODERATE RESISTANCE SC (18:24)
[2024-03-31 18:25] LABS: Glucose - Point of Care 105 mg/dl (70-99)
[2024-03-31] MEDS: LIPITOR 80 MG PO (18:26)
--- NOTE | 2024-03-31 20:29 | PTCARENOTE ---
Pts L nephrostomy draining peachy/blood tinged drainage. Pt stating this began 'a few days ago'- stating the drainage 'was so dark it looked like chocolate milk'. 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
[2024-03-31 21:08] LABS: Glucose - Point of Care 182 mg/dl (70-99)
[2024-03-31] MEDS: TYLENOL 500 MG PO (21:13)
[2024-03-31] MEDS: LANTUS 0.110000000000000001 UNITS SC (21:14)
[2024-03-31] MEDS: LOW STRENGTH ASPIRIN 81 MG PO (21:22)
[2024-03-31] MEDS: COREG PO (21:24)
--- NOTE | 2024-03-31 22:20 | W.PN.UPDATE ---
Update Note
Progress Note Update
urine noted to be pinkish color in nephrostomy. Will hold tonight dose of heparin sq and need to reassess in am
[2024-03-31 23:12] VITALS: BP 118/51
[2024-04-01] MEDS: NSS 1000 IV ×3 (02:53→22:20)
[2024-04-01 06:57] LABS: Hematocrit 26.4 % (37.0-47.0); Hemoglobin 8.5 g/dL (12.0-16.0); Mean Corp Hgb Conc. 32.2 g/dL (33.0-37.0); Mean Corpuscular Volume 90.1 fL (81.0-99.0); Mean Platelet Volume 9.4 fL (7.4-10.4); Platelet Count 224 10^3/uL (130-400); Red Blood Cell Count 2.93 10^6/uL (4.20-5.40); Red Cell Dist. Width 16.5 % (11.5-14.5); White Blood Cell Count 17.2 10^3/uL (4.8-10.8)
[2024-04-01 07:45] LABS: Glucose - Point of Care 112 mg/dl (70-99)
[2024-04-01 07:49] LABS: Blood Urea Nitrogen 41 mg/dl (7-17); Calcium 8.4 mg/dl (8.4-10.2); Carbon Dioxide 21 mmol/L (22-30); Chloride 111 mmol/L (98-107); Estimated Creatinine Clearance 22 ml/min; Glucose 90 mg/dl (70-99); Potassium 3.9 mmol/L (3.5-5.1); Sodium 137 mmol/L (135-145); eGFR 26.86
[2024-04-01] MEDS: NOVOLOG FLEXPEN-MODERATE RESISTANCE SC ×2 (07:50→12:31)
[2024-04-01 07:55] VITALS: BP 112/55
[2024-04-01] MEDS: MIRALAX 17 GRAMS PO (07:58)
[2024-04-01] MEDS: COREG 12.5 MG PO ×2 (07:58→19:29)
--- NOTE | 2024-04-01 09:25 | W.CON.NEPH ---
Consultation
-
Date/Time Consultation Requested: 04/01/2024 7:00 AM
Date/Time Consultation Performed: 04/01/2024 9:30 AM
Requesting Provider: Dr. Ramirez
Performing Provider: Dr. Mohamud
Reason for Consultation: Acute kidney injury/chronic kidney disease stage IIIb
Medical History
-
Chief Complaint: ABIOLA
History of Present Illness:
78-year-old female with a history of recent diagnosis of urologic cancer. Has a left nephrostomy tube. The patient has a history of diabetes maintained on insulin and is maintained on losartan for her hypertension. She does have a history of
chronic kidney disease stage III as noted by a baseline creatinine of 1.4 as of 03/23/24. She presented to the emergency room due to abnormal lab work which noted leukocytosis and acute renal failure with her creatinine up to 2.5. Nephrology was
consulted for her acute on chronic kidney disease
Past Medical History
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
03/22/24 Cystoscopy, left retrograde pyelogram, left ureteroscopy, left ureteral tumor biopsy, fulguration of left ureteral tumor
Recent UTI (discharged 03/23/24 on 7 days Levaquin)
Leukocytosis
CKD3b
CAD s/p CABG 2022
Essential hypertension
DM2
Tobacco abuse disorder
h/o RLE DVT approx 1 year ago, now off Eliqu
Social History
Tobacco: Smoker
Alcohol: None
Family History
No chronic kidney disease
Allergies / Home Medications
Allergy/AdvReac Type Severity Reaction Status Date / Time
No Known Allergies Allergy Verified 03/16/24 19:01
�Medication �Instructions �Recorded �Confirmed �Type
carvedilol 12.5 mg tablet 12.5 mg PO BID Blood Pressure 03/17/11 03/31/24 History
losartan 25 mg tablet 25 mg PO QPM Blood Pressure 03/16/24 03/31/24 History
atorvastatin 80 mg tablet 80 mg PO QPM 90 days #90 tabs 03/23/24 03/31/24 Rx
aspirin 81 mg tablet,delayed 81 mg PO QPM Blood Clot 03/31/24 03/31/24 History
release Prevention/Tx
cholecalciferol (vitamin D3) 50 50 mcg PO DAILY Supplement 03/31/24 03/31/24 History
mcg (2,000 unit) tablet
diphenhydramine 25 1 tab PO HS PRN mild pain 03/31/24 03/31/24 History
mg-acetaminophen 500 mg tablet
(Tylenol PM Extra Strength)
insulin glargine 100 unit/mL (3 11 unit SC HS Diabetes 03/31/24 03/31/24 History
mL) subcutaneous pen (Lantus
Solostar U-100 Insulin)
Review of Systems
-
History Source: Patient
All other systems: Negative unless noted
Constitutional: Fatigue
EENT: No Symptoms
Respiratory: Other (ASHBY)
Cardiac: No Symptoms
Abdomen/GI: No Symptoms
: Other (Left nephrostomy tube)
Musculoskeletal: Muscle Pain and Muscle Stiffness
Skin: No Symptoms
Neurological: No Symptoms
Endocrine: No Symptoms
Hematologic/Lymphatic: No Symptoms
Physical Exam
Vital Signs
Vital Signs
Temp Pulse Resp BP Pulse Ox
98.7 F 63 18 112/55 93
04/01/24 07:55 04/01/24 07:58 04/01/24 07:55 04/01/24 07:58 04/01/24 07:55
Lab Results
04/01/24 05:56
04/01/24 05:56
WBC 17.2 10^3/uL (4.8-10.8) H 04/01/24 05:56
RBC 2.93 10^6/uL (4.20-5.40) L 04/01/24 05:56
Hgb 8.5 g/dL (12.0-16.0) L 04/01/24 05:56
Hct 26.4 % (37.0-47.0) L 04/01/24 05:56
Plt Count 224 10^3/uL (130-400) 04/01/24 05:56
Sodium 137 mmol/L (135-145) 04/01/24 05:56
Potassium 3.9 mmol/L (3.5-5.1) 04/01/24 05:56
Chloride 111 mmol/L (98-107) H 04/01/24 05:56
Carbon Dioxide 21 mmol/L (22-30) L 04/01/24 05:56
BUN 41 mg/dl (7-17) H 04/01/24 05:56
Creatinine 1.9 mg/dL (0.6-1.0) H 04/01/24 05:56
eGFR 26.86 04/01/24 05:56
Glucose 90 mg/dl (70-99) 04/01/24 05:56
Calcium 8.4 mg/dl (8.4-10.2) 04/01/24 05:56
Physical Exam
General: AOx3, Nontoxic , NAD
HEENT: PERRL, EOMI, Anicteric, Conjunctivae Clear, Ear/Nose Intact, Hearing Normal, Oropharynx Clear/Moist, Dentition Intact, Facial Symmetry, Neck Supple, Neck: Trachea Midline, No JVD and No Thyromegaly, no Bruits
Respiratory: Clear to auscultation bilaterally with normal lung exersion
Cardiac: S1/S2 and Regular Rate/Rhythm
Breast: Deferred by me
Abdomen: Soft, Nontender, Nondistended, Normal Bowel Sounds and No Hepatosplenomegaly
Rectal: Deferred by Provider
Genito-urinary: Left nephrostomy tube
Extremities: No Clubbing, No Cyanosis and No Edema
Skin: No Rash or open lesions
Neuro: Nonfocal/Grossly Intact, CN II-XII (Intact) and Strength (Musculoskeletal exam 5 out of 5 both upper and lower extremities)
Hematologic/Lymphatic: No Cervical Lymphadenopathy, No Submandibular Lymphadenopathy and No Supraclavicular Lymphadenopathy
Psych: Mood/afflect pleasant, Insight/judgement good and Appropriate
Vascular: plus 2 pedal and radial pulses
Data Reviewed
-
Radiology: Image Personally Visualized and interpreted (Renal ultrasound reviewed: No hydronephrosis hypoechoic mass of right kidney 2.8 cm and left 2.3 cm)
Labs: Labs Reviewed by me (CBC BMP)
Old Records: Reviewed (Old records reviewed March 20, 2024 creatinine 1.4)
Assessment/Plan
-
Impression:
Acute kidney
CKD stage IIIb
Leukocytosis
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
03/22/24 Cystoscopy, left retrograde pyelogram, left ureteroscopy, left ureteral tumor biopsy, fulguration of left ureteral tumor
Recent UTI (discharged 03/23/24 on 7 days Levaquin)
Leukocytosis
CKD3b
CAD s/p CABG 2022
Essential hypertension
DM2
Tobacco abuse disorder
h/o RLE DVT approx 1 year ago, now off Eliquis
Plan:
-IV fluids provided
-Holding ARB
-Kidney ultrasound reviewed without evidence of obstruction
-Blood cultures pending
--- NOTE | 2024-04-01 09:27 | W.PN.URO.CBU ---
Today's Communication / Plan
-
No indication for urologic intervention
ITA (03/31) reviewed - no hydro of left kidney (s/p left PCN)
Maintain left PCN to drainage
Trend Cr
Plan for outpatient PET/CT, F/U with Medical Oncology, and F/U with Urology to discuss treatment plan
Assessment / Plan
-
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
CKD 3b
ABIOLA
03/19: s/p left PCN placement (IR)
03/22: s/p cystoscopy, left retrograde pyelogram, left ureteroscopy, left ureteral tumor biopsy, fulguration of left ureteral tumor
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
Diagnosis
-
Date of Service: April 01, 2024
-
Patient Diagnosis:
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
CKD 3b
ABIOLA
Post Op Day:
03/19: s/p left PCN placement (IR)
03/22: s/p cystoscopy, left retrograde pyelogram, left ureteroscopy, left ureteral tumor biopsy, fulguration of left ureteral tumor
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
Subjective
-
Afebrile.
Left PCN draining pink-tinged urine w/o obstruction.
Tolerating diet.
Objective
-
Vital Signs
Temp Pulse Resp BP Pulse Ox
98.7 F 63 18 112/55 93
04/01/24 07:55 04/01/24 07:58 04/01/24 07:55 04/01/24 07:58 04/01/24 07:55
Intake and Output
03/31/24 04/01/24 04/02/24
06:59 06:59 06:59
Output Total 300 / 300
Balance -300 / -300
Output:
Urinary Drain Output (Total) 300 / 300
Left Nephrostomy 300 / 300
Urine, Voided 0 / 0
Other:
Number of approximated MODERATE 1
amounts of urine
Laboratory Results
04/01/24 05:56
04/01/24 05:56
Physical Exam
-
General - well developed, well nourished, no acute distress
Abdomen - soft, non-tender, no CVAT, left PCN w/ pink-tinged UOP
Genitalia - normal
Skin - warm & dry with no rash
Neuro - AOx3, no motor deficits
Extremities - no clubbing, no cyanosis, no edema
Counseling
-
Discussed urologic plan of care w/ patient.
Care Review
Data Reviewed
Discussed with: Hospitalist and Nursing
Ultrasound: Report Pers Reviewed and Image Pers Reviewed
Total Time Spent with Patient (in minutes): 38
--- NOTE | 2024-04-01 11:57 | W.PN.HOSP.TC ---
Today's Communication/Plan
-
IVF
Follow Creat
Labs in am
Assessment / Plan
Assessment / Plan
78-year-old With history of left percutaneous nephrostomy for urothelial cancer presenting with abnormal labs. She was admitted to [facility] on 03/16/2024 and was discharged on 03/23/2024. Had outpatient labs which prompted her to come back
to the ER.
Renal ultrasound 04/01/2024-hypoechoic mass in the right kidney probably a complex cyst. Hypoechoic mass in the left kidney possibly benign complex cyst. Solid appearing hypoechoic mass in the mid left ureter region. This corresponds to a solid
mass in the left mid ureter seen on the CT.
Concerning for malignancy. Simple right renal cyst. Nonobstructing 5 mm left renal stone
CVS: S1-S2 normal
Chest: CTA B/L
Abdomen: Soft, NT / Bowel sounds present
Extremities: No edema, normal pulses
CADDIE: Non focal exam
# Acute kidney injury on CKD stage IIIb
Unclear reason for ABIOLA
Creatinine improving
Patient has a history of chronic hydronephrosis on the left kidney
Ultrasound as above
Hold ARB
Nephrology and urology evaluations appreciated
IVF
# Left urothelial cancer-outpatient PET scan
Eventual plan for surgery versus chemotherapy will be determined by urology and oncology after PET scan as outpatient
#Bladder diverticulum
# Anemia-check iron studies
# Recently treated with Levaquin for UTI discharged on 03/23/2024
# Leukocytosis- Unclear if due to malignancy- Blood Cx pending.
recently finished Levaquin
# Coronary artery disease with history of CABG 2022-continue aspirin, statin, beta-yamileth
# Essential hypertension-continue Coreg. Hold ARB
# Hyperlipidemia-continue atorvastatin
# Diabetes-continue Lantus Accu-Cheks and sliding scale coverage
#Deep vein thrombosis June 2023
# Tobacco abuse-nicotine patch. Cessation counseling
# DVT prophylaxis-VENKATESH
# Full code
D/W Urology and Nephrology
Anticipated Discharge: Within 24 hours
Subjective/Interval History
-
Date of Service: April 01, 2024
Objective Data
-
Labs:
Laboratory Results
04/01/24
05:56
WBC 17.2 H
Hgb 8.5 L
Hct 26.4 L
Plt Count 224
Sodium 137
Potassium 3.9
Chloride 111 H
Carbon Dioxide 21 L
BUN 41 H
Creatinine 1.9 H
Glucose 90
Calcium 8.4
Vital Signs:
Vital Signs
Temp Pulse Resp BP Pulse Ox
98.7 F 63 18 112/55 93
04/01/24 07:55 04/01/24 07:58 04/01/24 07:55 04/01/24 07:58 04/01/24 08:00
I&O
03/31/24 04/01/24 04/02/24
06:59 06:59 06:59
Output Total 300 / 300
Balance -300 / -300
[2024-04-01 12:20] LABS: Glucose - Point of Care 131 mg/dl (70-99)
--- NOTE | 2024-04-01 12:20 | CM ---
CM met with pt bedside
Pt recently [facility]- pt is current
Pt resides with her spouse in a 2SH with 12 steps to 2nd floor
Pt notes independence at baseline
She has a R. nephrostomy tube
PCP- Jose Fountain
Rx- [facility]
CM consult for advanced directives
Pt notes she has start process al ready with family
Accepted paperwork
CM will follow for dc planning
Discharge Disposition- anticipate home with [facility]
[2024-04-01 13:44] LABS: Iron 37 ug/dl (37-170)
[2024-04-01 13:53] LABS: Percent Saturation 15 % (20-50); Total Iron Binding Capacity 243 ug/dl (265-497)
[2024-04-01 14:19] LABS: Ferritin 44.5 ng/ml (11.1-264.0)
[2024-04-01 14:34] LABS: Vitamin B12 376 pg/ml (239-931)
[2024-04-01 15:55] VITALS: BP 100/52
[2024-04-01 17:00] LABS: Glucose - Point of Care 156 mg/dl (70-99)
[2024-04-01] MEDS: NOVOLOG FLEXPEN-MODERATE RESISTANCE 1 UNITS SC (17:03)
[2024-04-01] MEDS: LIPITOR 80 MG PO (17:04)
--- NOTE | 2024-04-01 17:19 | PTCARENOTE ---
Addendum entered by Masood Bonner RN 04/01/24 17:48:
Dr. Contreras made aware of pt. blood tinged urine.
Original Note:
Dr. Camargo made aware pt. voided blood tinged urine and that the warehouse worker 2nd shift nurse reported blood tinged urine in the pt. nephrostomy tube overnight. Pt. nephrostomy tube has drained cloudy yellow urine today. Pt. has no c/o pain at this time. No
new orders at this time.
[2024-04-01 21:44] LABS: Glucose - Point of Care 171 mg/dl (70-99)
[2024-04-01] MEDS: LOW STRENGTH ASPIRIN 81 MG PO (22:20)
[2024-04-01] MEDS: LANTUS 0.110000000000000001 UNITS SC (22:20)
[2024-04-01] MEDS: NSS IV (22:20)
[2024-04-01] MEDS: TYLENOL 500 MG PO (22:20)
[2024-04-01 23:25] VITALS: BP 99/45
[2024-04-02 00:39] VITALS: BP 110/46
[2024-04-02 06:59] LABS: Hematocrit 26.2 % (37.0-47.0); Hemoglobin 8.5 g/dL (12.0-16.0); Mean Corp Hgb Conc. 32.4 g/dL (33.0-37.0); Mean Corpuscular Hgb 29.2 pg (27.0-31.0); Platelet Count 199 10^3/uL (130-400); Red Blood Cell Count 2.91 10^6/uL (4.20-5.40); Red Cell Dist. Width 16.5 % (11.5-14.5)
[2024-04-02 07:21] LABS: Glucose - Point of Care 119 mg/dl (70-99)
[2024-04-02] MEDS: NSS 1000 IV (07:22)
[2024-04-02 07:27] LABS: Blood Urea Nitrogen 31 mg/dl (7-17); Calcium 8.4 mg/dl (8.4-10.2); Carbon Dioxide 24 mmol/L (22-30); Chloride 113 mmol/L (98-107); Estimated Creatinine Clearance 28 ml/min; Glucose 102 mg/dl (70-99); Sodium 141 mmol/L (135-145); eGFR 35.67
[2024-04-02 07:55] VITALS: BP 119/53
[2024-04-02] MEDS: NOVOLOG FLEXPEN-MODERATE RESISTANCE SC ×2 (08:06→12:01)
[2024-04-02] MEDS: MIRALAX PO (08:11)
[2024-04-02] MEDS: HEPARIN 5000 UNITS SC (08:12)
[2024-04-02] MEDS: COREG 12.5 MG PO (08:13)
--- NOTE | 2024-04-02 11:22 | W.PN.NEPH.PH ---
Today's Communication / Plan
-
- hold further IVF
Assessment/Plan
-
Impression:
Acute kidney
CKD stage IIIb
Leukocytosis
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
03/22/24 Cystoscopy, left retrograde pyelogram, left ureteroscopy, left ureteral tumor biopsy, fulguration of left ureteral tumor
Recent UTI (discharged 03/23/24 on 7 days Levaquin)
Leukocytosis
CKD3b
CAD s/p CABG 2022
Essential hypertension
DM2
Tobacco abuse disorder
h/o RLE DVT approx 1 year ago, now off Eliquis
Plan:
-back to baseline kidney function
-can hold further IVF
-Holding ARB, can restart as an outpatinet if needed
-Kidney ultrasound reviewed without evidence of obstruction
-Blood cultures negative
-
-
Date of Service: April 02, 2024
CC / HPI / ROS
-
Chief Complaint:
ABIOLA on CKD
History of Present Illness:
cr back to baseline at 1.5
PCN with drainage
Review of Systems:
feeling much better
Labs
-
Labs:
WBC 15.0 10^3/uL (4.8-10.8) H 04/02/24 06:32
RBC 2.91 10^6/uL (4.20-5.40) L 04/02/24 06:32
Hgb 8.5 g/dL (12.0-16.0) L 04/02/24 06:32
Hct 26.2 % (37.0-47.0) L 04/02/24 06:32
Plt Count 199 10^3/uL (130-400) 04/02/24 06:32
Sodium 141 mmol/L (135-145) 04/02/24 06:32
Potassium 4.0 mmol/L (3.5-5.1) 04/02/24 06:32
Chloride 113 mmol/L (98-107) H 04/02/24 06:32
Carbon Dioxide 24 mmol/L (22-30) 04/02/24 06:32
BUN 31 mg/dl (7-17) H 04/02/24 06:32
Creatinine 1.5 mg/dL (0.6-1.0) H 04/02/24 06:32
eGFR 35.67 04/02/24 06:32
Glucose 102 mg/dl (70-99) H 04/02/24 06:32
Calcium 8.4 mg/dl (8.4-10.2) 04/02/24 06:32
Physical Exam
-
Vital Signs:
Vital Signs
Temp Pulse Resp BP Pulse Ox
97.7 F 59 18 119/53 94
04/02/24 07:55 04/02/24 07:55 04/02/24 07:55 04/02/24 07:55 04/02/24 07:55
Cardiovascular:: Regular rate and rhythm
Respiratory:: Bilateral: Coarse
Lung Excursion:: Normal
Abdomen:: Nontender and Soft
Bowel Sounds:: Normal
Extremity Edema:: +1: Bilateral:
Arauz Catheter: No
Other Findings::
L PCN in place
[2024-04-02 12:01] LABS: Glucose - Point of Care 127 mg/dl (70-99)
--- NOTE | 2024-04-02 14:01 | CM ---
I met with Roxanne, her and [id number] today. Roxanne is looking forward to returning home. She acknowledges that she is weaker and wants to work with therapy to get her legs stronger so she can ambulate up/down the steps at home.
Roxanne has 12 steps down the laundry room, stays down for an hour while wash is getting done, and then walks back up the steps. She explained that she gets up the stairs 'like a crab', and her demonstration looked like she crawled up on her
hands/knees. She is fearful of falling. he uses the same technique to go from the ground floor to the second floor.
Roxanne has 2 walkers at home; her mentioned a w/c for going grocery shopping, however the option of using one of the electric carts at the grocer was suggested as an option, as well. Roxanne believes her walker was obtained about 2 years ago.
Medicare has a 5 year window for DME, so a w/c will likely not be approved.
Call placed to the Rehab department to request Roxanne be seen prior to discharge. TT to Dr. Nickerson to request this.
Plan: Discharge to home with resumption of [facility] services.
PCP- Jose Fountain
Rx- [facility]
--- NOTE | 2024-04-02 14:29 | VNURNOTE ---
[facility] resumption of care completed in [facility] after review of chart and discussion with patient. Patient confirmed having [facility] contact number.
--- NOTE | 2024-04-02 14:53 | W.PN.HOSP.TC ---
Today's Communication/Plan
-
Discharge
Assessment / Plan
Assessment / Plan
78-year-old With history of left percutaneous nephrostomy for urothelial cancer presenting with abnormal labs. She was admitted to [facility] on 03/16/2024 and was discharged on 03/23/2024. Had outpatient labs which prompted her to come back
to the ER.
Renal ultrasound 04/01/2024-hypoechoic mass in the right kidney probably a complex cyst. Hypoechoic mass in the left kidney possibly benign complex cyst. Solid appearing hypoechoic mass in the mid left ureter region. This corresponds to a solid
mass in the left mid ureter seen on the CT.
Concerning for malignancy. Simple right renal cyst. Nonobstructing 5 mm left renal stone
CVS: S1-S2 normal
Chest: CTA B/L
Abdomen: Soft, NT / Bowel sounds present, nephrostomy with more clear urine
Extremities: No edema
FURNITURE DETAILER: Non focal exam
# Acute kidney injury on CKD stage IIIb
Unclear reason for ABIOLA
Patient had intermittent bleeding she probably was clogging the nephrostomy tube which got relieved.
Nephrostomy urine is clear today
Creatinine improving and at baseline
Patient has a history of chronic hydronephrosis on the left kidney
Ultrasound as above
Hold ARB-will defer to outpatient restart
Nephrology and urology evaluations appreciated
IVF stopped
# Left urothelial cancer-outpatient PET scan
Eventual plan for surgery versus chemotherapy will be determined by urology and oncology after PET scan as outpatient
#Bladder diverticulum
# Anemia-PO iron for mild def anemia
# Recently treated with Levaquin for UTI discharged on 03/23/2024
# Leukocytosis- Unclear if due to malignancy- Blood Cx neg.
recently finished Levaquin
# Coronary artery disease with history of CABG 2022-continue aspirin, statin, beta-yamileth
# Essential hypertension-continue Coreg. Hold ARB
# Hyperlipidemia-continue atorvastatin
# Diabetes-continue Lantus Accu-Cheks and sliding scale coverage
#Deep vein thrombosis June 2023
# Tobacco abuse-nicotine patch. Cessation counseling
# DVT prophylaxis-VENKATESH
# Full code
D/W Urology and Nephrology-BBoth OK for discharge
D/W 2 brothers at bedside. They are aware that she needs to follow-up with oncology to do further planning and treatment.
Also aware that she needs a PET scan as outpatient.
Total discharge time 35 minutes
Anticipated Discharge: Today
Subjective/Interval History
-
Date of Service: April 02, 2024
Objective Data
-
Labs:
Laboratory Results
04/02/24
06:32
WBC 15.0 H
Hgb 8.5 L
Hct 26.2 L
Plt Count 199
Sodium 141
Potassium 4.0
Chloride 113 H
Carbon Dioxide 24
BUN 31 H
Creatinine 1.5 H
Glucose 102 H
Calcium 8.4
Vital Signs:
Vital Signs
Temp Pulse Resp BP Pulse Ox
97.7 F 59 18 119/53 94
04/02/24 07:55 04/02/24 07:55 04/02/24 07:55 04/02/24 07:55 04/02/24 07:55
I&O
04/01/24 04/02/24 04/03/24
06:59 06:59 06:59
Intake Total 3535 / 3535
Output Total 300 / 300 575 / 575
Balance -300 / -300 2960 / 2960
--- NOTE | 2024-04-02 15:08 | W.DS.TRANS ---
Addendum entered and electronically signed by Bandar Contreras MD 04/02/24 16:22:
Dictation- [id number]
Original Note:
DC Summary - Dermatologist And Dermatopathologist
-
Discharge Instructions:
Discharge Diagnosis/Procedures Acute kidney injury, CKD stage III, left
urothelial cancer, anemia, coronary artery
disease, hypertension, high cholesterol,
diabetes
Diet Diabetic, Carb Controlled
Activity As tolerated
Driving Restrictions As prior to admission
Other Services [facility]
Instructions:
Stand-Alone Forms:
Changes to Home Medications: Yes
Discharge Medications:
DC Medications w/original date entered in [employer]
carvedilol 12.5 mg tablet 12.5 mg PO BID Blood Pressure 03/17/11
atorvastatin 80 mg tablet 80 mg PO QPM 90 days #90 tabs 03/23/24
cholecalciferol (vitamin D3) 50 mcg (2,000 unit) tablet 50 mcg PO DAILY Supplement 03/31/24
diphenhydramine 25 mg-acetaminophen 500 mg tablet (Tylenol PM Extra Strength) 1 tab PO HS PRN mild pain 03/31/24
insulin glargine 100 unit/mL (3 mL) subcutaneous pen (Lantus Solostar U-100 Insulin) 11 unit SC HS Diabetes 03/31/24
aspirin 81 mg tablet,delayed release 81 mg PO DAILY Blood Clot Prevention/Tx #0 tabs 04/02/24
cyanocobalamin (vitamin B-12) 1,000 mcg tablet 1,000 mcg PO DAILY low normal B12 #0 tabs 04/02/24
ferrous sulfate 325 mg (65 mg iron) tablet (FeroSul) 325 mg PO DAILY anemia #30 tabs 04/02/24
Home Medication Changes
new
cyanocobalamin (vitamin B-12) 1,000 mcg tablet 1,000 mcg PO DAILY low normal B12 #0 tabs 04/02/24
ferrous sulfate 325 mg (65 mg iron) tablet (FeroSul) 325 mg PO DAILY anemia #30 tabs 04/02/24
Pending Results: No
[2024-04-02 15:12] VITALS: BP 124/61; PULSE 66; O2SAT 97
[2024-04-02 15:55] VITALS: BP 131/54
--- NOTE | 2024-04-02 16:17 | CM ---
Roxanne is being discharged to home tonight with resumption of [facility]. She is calling her family to come pick her up, but states it may take an hour or so for them to get here. I encouraged her to order dinner while she was waiting.
Plan: Resumption of [facility] services.
== END 2024-04-02 17:58 | disposition home health service (06) | DRG 683 ==
LOC: 4 EAST ACU 16:35
PROVIDERS: ADMITTING PHYSICIAN Internal Medicine; ATTENDING PHYSICIAN Hospitalist; CONSULT PHYSICIAN Specialist; EMERGENCY PHYSICIAN Emergency Medicine; FAMILY PHYSICIAN Physician Assistant Medical
DX: N17.9 Acute kidney failure, unspecified (principal); C66.2 Malignant neoplasm of left ureter; N18.32 Chronic kidney disease, stage 3b; E11.22 Type 2 diabetes mellitus with diabetic chronic kidney disease; I12.9 Hypertensive chronic kidney disease with stage 1 through stage 4 chronic kidney disease, or unspecified chronic kidney disease; D63.0 Anemia in neoplastic disease; F17.200 Nicotine dependence, unspecified, uncomplicated; I25.10 Atherosclerotic heart disease of native coronary artery without angina pectoris; Z79.82 Long term (current) use of aspirin; Z79.84 Long term (current) use of oral hypoglycemic drugs
CPT/HCPCS: 76775; 80048; 82607; 82728; 82962; 83540; 83550; 85025; 85027; 87040; 96360; 96361; 97162; 99284; 99406

== ENCOUNTER → 2024-04-27 15:51 | Outpatient (REF) | payer OTHER, SELFPAY | LOC: RAD 15:51 | PROVIDERS: ATTENDING PHYSICIAN Family Medicine | DX: R60.0 Localized edema (principal) | CPT/HCPCS: 93971 ==

== ENCOUNTER 2024-05-15 14:30 | Inpatient (IN) | payer OTHER, SELFPAY ==
[2024-05-15] VITALS (12 sets, daily range): BP systolic 91–118; BP diastolic 41–61; BMI 29.1
--- NOTE | 2024-05-15 08:56 | ED.GENMED ---
History of Present Illness
General
Chief Complaint: Abnormal Lab Value
Source: patient
Exam Limitations: none
Time Seen by Provider: 05/15/24 08:38
History of Present Illness
History of Present Illness:
78-year-old female presents in referral from family doctor's office as she had abnormal blood work that was drawn routinely 4 days ago. She was called from the family doctor's office who states she had a bacterial infection and sent her in.
Patient is unaware where the infection is. She has no complaints to offer. She denies chest pain cough shortness of breath abdominal pain or urinary symptoms. She has a known history of ureteral cancer. She is due for urology evaluation surgery
next week to remove her kidney. She denies chills or sweats. She is on Eliquis. No complaints offer currently.
Past History
Past History
ED Past Medical History: CAD, HTN, Hypercholesterolemia and NIDDM
ED Past Surgical History: Cardiac and Orthopedic
Social History
Tobacco: Non-smoker
Alcohol: None
Personal:
Living: with family
Family History
Family History: Negative Diabetes, Hypertension, Early CAD, Asthma or Cancer
Phy Exam
Physical Exam
Physical Exam:
General: Well-appearing female no acute respiratory distress
HEENT: Normocephalic atraumatic
Heart: Regular rate and rhythm no murmurs lungs: Clear to auscultation bilaterally no wheezing
Abdomen is soft nontender nondistended no guarding or rebound
Extremities: Edema bilateral lower extremities left greater than the right
Skin is warm no rash
Neurologic: Alert and oriented no facial asymmetry
Course
Orders/Labs/Results
Orders:
Orders
05/15/24 10:01
Complete Blood Count/With Diff Urgent
Comprehensive Metabolic Panel Urgent
Urinalysis Reflex To Culture Urgent
Date Specimen was Collected: 05/15/24
Time Specimen was Collected: 09:45
Urine Microscopic Reflex Cult Urgent
Urine Culture Urgent
LUCY Source: U
Specimen Description:
Date Specimen was Collected: 05/15/24
Time Specimen was Collected: 09:45
05/15/24 12:20
CefTRIAXone [Rocephin] 1,000 mg IV NOW STA
05/15/24 12:47
Blood Culture Urgent
LUCY Source: Blood/Venous
Specimen Description:
Abnormal Lab Results
05/15/24
10:01
WBC 44.9 H* 10^3/uL
(4.8-10.8)
RBC 2.62 L 10^6/uL
(4.20-5.40)
Hgb 7.4 L g/dL
(12.0-16.0)
Hct 22.5 L %
(37.0-47.0)
MCHC 32.9 L g/dL
(33.0-37.0)
RDW 16.6 H %
(11.5-14.5)
Abs Immat Gran (auto) 1.0 H 10^3/uL
(0-0.05)
Absolute Neuts (auto) 40.8 H 10^3/uL
(1.4-6.5)
Absolute Monos (auto) 1.5 H 10^3/uL
(0.1-0.6)
Immature Gran % 2.2 H %
(0-0.5)
Neutrophils % 90.7 H %
(42.2-75.2)
Lymphocytes % 3.0 L %
(20.5-51.1)
Sodium 134 L mmol/L
(135-145)
BUN 29 H mg/dl
(7-17)
Creatinine 1.6 H mg/dL
(0.6-1.0)
Alkaline Phosphatase 146 H U/L
(38-126)
Total Protein 6.1 L g/dl
(6.3-8.2)
Albumin 2.7 L g/dl
(3.5-5.0)
Ur Occult Blood Reflex 3+ A
(Negative)
Leukocyte Esterase Rfl 2+ A
(Negative)
Urine RBC 7-10 A /HPF
(0-2)
Urine WBC (Reflex) 16-20 A /HPF
(0-5)
Urine Bacteria (Reflex) Moderate A
(Negative)
Urine Yeast Many A
(Negative)
05/15/24 10:01
05/15/24 10:01
Vital Signs
Initial and Last Documented VS:
Initial Vital Signs
Temp Pulse Resp BP Pulse Ox
98.9 F 69 18 116/50 98
05/15/24 08:31 05/15/24 08:31 05/15/24 08:31 05/15/24 08:31 05/15/24 08:31
Last Documented Vital Signs
Temp Pulse Resp BP Pulse Ox
98.9 F 75 16 100/52 94
05/15/24 08:31 05/15/24 11:01 05/15/24 11:01 05/15/24 11:01 05/15/24 10:45
MDM/Problems Addressed
Differential Diagnosis Includes:
Patient sent in for abnormal blood work. Patient has no complaints. Call placed to family doctor's office to clarify abnormalities
*Critical Care Note
Total Time (30-74mins, 75-104mins- exclusive of procedures): Not Applicable
Update Note
Update Note:
Patient reevaluated. UA with signs of infection including moderate bacteria and white cells. She has no nephrostomy tube from the left kidney. This findings of lab hematology as she has a white blood cell count of 44,000 and hemoglobin is 7.4
which is dropping. Hematology feels though this is more likely related to the infectious process not underlying dysplasia. Will order Rocephin. Will admit to hospital
ED Attending Note
-
Portions of this chart may have been created with voice recognition software.� Occasional wrong word or��sound alike� substitutions may have occurred due to the inherent limitations of voice recognition software.
Discharge Plan
Departure
Patient Disposition: Admit
Date of Disposition: 05/15/24
Time of Disposition: 13:06
Admit to: Med/Surg
Presentation/result/management discussed w/ accepting MD/DO: Hospitalist
Patient with high blood pressure during this ER visit?: No
Discharge Problem:
Anemia, Leukocytosis
Prescriptions:
No Action
carvedilol 12.5 MG tablet
12.5 mg PO BID
atorvastatin 80 mg Tablet
80 mg PO QPM 90 Days Qty: 90 0RF
insulin glargine [Lantus Solostar U-100 Insulin] 100 unit/mL (3 mL) Insulin Pen
11 unit SC HS
cholecalciferol (vitamin D3) 50 mcg (2,000 unit) Tablet
50 mcg PO DAILY
diphenhydramine-acetaminophen [Tylenol PM Extra Strength] 25-500 mg Tablet
1 tab PO HS PRN (Reason: mild pain)
ferrous sulfate [FeroSul] 325 mg (65 mg iron) Tablet
325 mg PO DAILY Qty: 30 0RF
cyanocobalamin (vitamin B-12) 1,000 mcg Tablet
1,000 mcg PO DAILY Qty: 0 0RF
aspirin 81 mg Tablet,Delayed Release (Dr/Ec)
81 mg PO DAILY Qty: 0 0RF
Theragen Tablet
1 tab PO DAILY
docusate sodium [Colace] 100 mg Capsule
200 mg PO HSPRN PRN (Reason: constipation)
furosemide [Lasix] 20 mg Tablet
20 mg PO DAILY
Eliquis 5 mg Tablet
5 mg PO BID
Referrals:
Jose Fountain PA-C [Family Provider] -
Interventions
Interventions:
*Risk Screen - Suicide Last Done: 05/15/24 08:57
*General Assessment Last Done: 05/15/24 08:57
*Neglect/Abuse Screening Last Done: 05/15/24 08:57
ED- Fall Risk Assessment Last Done: 05/15/24 08:58
*ED COVID-19 Vaccine History Last Done: 05/15/24 10:37
Discharge Date and Time
Print Language: GERMAN
[2024-05-15 10:23] LABS: Hematocrit 22.5 % (37.0-47.0); Hemoglobin 7.4 g/dL (12.0-16.0); Mean Corp Hgb Conc. 32.9 g/dL (33.0-37.0); Mean Corpuscular Hgb 28.2 pg (27.0-31.0); Mean Corpuscular Volume 85.9 fL (81.0-99.0); Mean Platelet Volume 8.5 fL (7.4-10.4); Platelet Count 344 10^3/uL (130-400); Red Blood Cell Count 2.62 10^6/uL (4.20-5.40); Red Cell Dist. Width 16.6 % (11.5-14.5); White Blood Cell Count 44.9 10^3/uL (4.8-10.8)
[2024-05-15 10:29] LABS: ALT (SGPT) 11 U/L (0-35); AST (SGOT) 22 U/L (14-36); Albumin 2.7 g/dl (3.5-5.0); Alkaline Phosphatase 146 U/L (38-126); Blood Urea Nitrogen 29 mg/dl (7-17); Calcium 8.7 mg/dl (8.4-10.2); Carbon Dioxide 25 mmol/L (22-30); Chloride 104 mmol/L (98-107); Estimated Creatinine Clearance 30 ml/min; Glucose 93 mg/dl (70-99); Potassium 3.8 mmol/L (3.5-5.1); Sodium 134 mmol/L (135-145); Total Bilirubin 0.6 mg/dl (0.2-1.3); Total Protein 6.1 g/dl (6.3-8.2); eGFR 33.01
--- NOTE | 2024-05-15 10:39 | EDRN ---
Critical value WBC reported to ER provider Sanchez
[2024-05-15 10:40] LABS: Urine Albumin Negative (Neg - Trace); Urine Bilirubin Negative (Negative); Urine Character Slightly Cloudy (Clear); Urine Color Yellow; Urine Glucose Negative (Negative); Urine Ketone Negative (Negative); Urine Leukocyte 2+ (Negative); Urine Nitrite Negative (Negative); Urine Occult Blood 3+ (Negative); Urine Specific Gravity 1.015 (<1.030); Urine Urobilinogen Negative (Neg - 1+)
[2024-05-15 10:43] LABS: % Basophils 0.4 % (0-2); % Eosinophils 0.3 % (0-6); % Immature Granulocytes 2.2 % (0-0.5); % Monocytes 3.4 % (1.7-9.3); % Neutrophils 90.7 % (42.2-75.2); Absolute Basophils 0.2 10^3/uL (0-0.2); Absolute Eosinophils 0.2 10^3/uL (0-0.7); Absolute Lymphocytes 1.3 10^3/uL (1.2-3.4); Absolute Monocytes 1.5 10^3/uL (0.1-0.6); Absolute Neutrophils 40.8 10^3/uL (1.4-6.5); Nucleated Red Blood Cells % 0 %
[2024-05-15 10:50] LABS: Urine Bacteria Moderate (Negative); Urine White Cell 16-20 /HPF (0-5); Urine Yeast Many (Negative)
[2024-05-15] MEDS: ROCEPHIN 1000 MG IV (12:52)
[2024-05-15 14:45] LABS: Lactic Acid 1.3 mmol/L (0.7-2.0)
[2024-05-15] MEDS: NSS 500 IV (15:50)
--- NOTE | 2024-05-15 16:17 | CM ---
Patient seen at bedside in Ed with physicians. Patient states that she lives with her in a 2 story home. Patient PCP Dr. Fountain and patient stated that her brother is her POA. Patient stated that she wants to return home with [facility] following
her as previously. Patient is a full code per physician discussion. CM will continue to follow for discharge planning needs.
Plan; home with /VN vs SNF
[2024-05-15 17:07] LABS: Glucose - Point of Care 140 mg/dl (70-99)
[2024-05-15] MEDS: LIPITOR 80 MG PO (18:06)
--- NOTE | 2024-05-15 18:40 | HPS.HSE ---
Addendum entered and electronically signed by Nasima Lucas MD 05/15/24 20:23:
I personally performed a history and physical exam of the patient and discussed management with the resident. I reviewed the resident's note and agree with the documented findings and plan of care HPI/CC.
GENERAL: well developed, well nourished, female in no apparent distress
HEENT: NC/AT--poor dentition
HEART: regular rate and rhythm, +S1, +S2 with ectopy
LUNGS : clear to auscultation bilaterally
ABDOM: soft, nontender, nondistended, + bowel sounds--left nephrostomy tube in place draining clear urine
EXT: no cyanosis, clubbing--4+ LE edema left leg, 3+ LE edema right leg
NEUROLOGIC: grossly intact
: nephrostomy tube in place left side
Sepsis (POA, meets criteria) likely secondary to UTI--Elevated white blood cell count 44.9, Neutrophils 90%, Respiratory rate 21, blood pressure 92/48--Urine analysis positive for leukocyte Esterase, occult blood, many bacteria--Start patient on
ceftriaxone, IV fluid bolus, maintenance fluid, ordered routine labs for sepsis workup.
Anemia--likely chronic with combination of iron deficiency (takes iron at home) plus anemia of chronic disease (cancer)--Hemoglobin 7.4 on admission. Baseline 8.5--Iron, ferritin, TIBC labs pending--Consent for blood transfusion signed. Monitor
hemoglobin levels--Transfuse if hemoglobin below 7
Leukocytosis--Likely secondary to UTI but could have elevated baseline due to cancer--follow with treatment of infection--consult onc/urology
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
Hypotension--improved with IVF--follow for now--hold lasix
CKD IIIb--baseline creat 1.6--renal dose meds
Diabetes mellitus type 2--Continue home insulin glargine 11 units--Diabetic diet--SSI and check HGB A1C
Essential hypertension--Continue home medication due to history of CABG and CAD--cont coreg--Holding Lasix
CAD/CABG--Continue aspirin 81 mg, continue atorvastatin
Tobacco use--Patient quit 1 month ago--Ordered nicotine patches
Bilateral adrenal adenomas--likely Benign
DVT proph -- Eliquis
Code Status -- FULL CODE
Allergies
Allergy/AdvReac Type Severity Reaction Status Date / Time
No Known Allergies Allergy Unverified 05/15/24 08:31
Home Medications
carvedilol 12.5 mg tablet 12.5 mg PO BID Blood Pressure 03/17/11
cholecalciferol (vitamin D3) 50 mcg (2,000 unit) tablet 50 mcg PO DAILY Supplement 03/31/24
diphenhydramine 25 mg-acetaminophen 500 mg tablet (Tylenol PM Extra Strength) 1 tab PO HS PRN mild pain 03/31/24
insulin glargine 100 unit/mL (3 mL) subcutaneous pen (Lantus Solostar U-100 Insulin) 11 unit SC HS Diabetes 03/31/24
aspirin 81 mg tablet,delayed release 81 mg PO DAILY Blood Clot Prevention/Tx #0 tabs 04/02/24
ferrous sulfate 325 mg (65 mg iron) tablet (FeroSul) 325 mg PO DAILY anemia #30 tabs 04/02/24
apixaban 5 mg tablet (Eliquis) 5 mg PO BID Blood Clot Prevention/Tx 05/15/24
atorvastatin 80 mg tablet 80 mg PO QPM High Cholesterol 05/15/24
cyanocobalamin (vitamin B-12) 1,000 mcg tablet 1,000 mcg PO DAILY Supplement 05/15/24
docusate sodium 100 mg capsule (Colace) 200 mg PO HSPRN PRN constipation 05/15/24
furosemide 20 mg tablet (Lasix) 20 mg PO DAILY Fluid Retention/Swelling 05/15/24
therapeutic multivitamin 1 tab PO DAILY Supplement 05/15/24
Original Note:
Family Physician
-
Family Physician: Jose Fountain PA-C
Chief Complaint
-
Routine blood work done by PCP revealed elevated white blood cell count of 44.9. PCP and oncologist recommended for her to come to the ER.
History of Present Illness
78-year-old female with past medical history of nephrostomy tube placement due to ureteral cancer, CAD, hypertension, hyperlipidemia and insulin-dependent diabetes mellitus presents to the ED after PCP told her to come due to abnormal blood work
drawn routinely 4 days ago. Her white blood cell count was 44.9. Patient is unaware where the infection is and has no complaints. She does state she has some increased pressure and pain in her suprapubic region that is relieved after using the
bathroom. In addition she has had bilateral lower extremity pitting edema ongoing monitored by PCP which she is currently on Lasix. She denies any chest pain, cough, shortness of breath, abdominal pain, nausea, vomiting, urinary symptoms. She is
due for urology evaluation next week to remove remove her left kidney. She denies chills, sweats, fever. She is currently on Eliquis.
Medical History
Past Medical History
Past Medical History: Reports CAD, HTN, Hypercholesterolemia and NIDDM
Additional Past Medical History:
Ureteral cancer
Past Surgical History: Reports Other (CABG, Left knee surgery, Cataracts, triple bypass, corneal transplant left eye, iliac stents,)
Social History
Tobacco: Former Smoker
Alcohol: None
Drug: None
Personal:
Living: With Family
Employment: Retired
Family History
Family History: Other (Father: cirrhosis. Mother: diagnosis coronary artery disease, Diabetes mellitus type II, stroke. Paternal grandmother: diabetes mellitus. Maternal grandmother: diabetes mellitus. Brother: colon polyp.)
Allergies / Home Medications
Allergies reflects when Allergies were last updated in [employer] [facility] [place].
Home Medications with original date entered in [employer] [facility] [place]
Allergy/Medication List:
NKDA
Review of Systems
-
History Source: Patient
EENT: Reports No Symptoms
Respiratory: Reports No Symptoms
Cardiac: Reports No Symptoms
Abdomen/GI: Reports No Symptoms
: Reports Dark Urine
Musculoskeletal: Reports No Symptoms
Skin: Reports No Symptoms
Neurological: Reports No Symptoms
Physical Exam
Vital Signs
Vital Signs
Temp Pulse Resp BP Pulse Ox
98.9 F 73 14 93/61 97
05/15/24 08:31 05/15/24 14:45 05/15/24 14:45 05/15/24 14:00 05/15/24 14:45
Physical Exam
General: Well Developed, Well Nourished, No Apparent Distress and Comfortable; No Chills or Sweats
HEENT: NormoCephalic
Respiratory: Clear
Cardiac: S1/S2 and Regular Rhythm
GI: Soft, Non Tender and Non Distended
Genito-urinary: Other (Dark urine)
Musculoskeletal: Edema, Left Lower Extremity and Edema, Right Lower Extremity
Neuro: AO x 3
Psych: Calm
Laboratory Results
-
05/15/24 10:01
05/15/24 10:01
Laboratory Results
Lactic Acid 1.3 mmol/L (0.7-2.0) 05/15/24 14:15
Total Bilirubin 0.6 mg/dl (0.2-1.3) 05/15/24 10:01
AST 22 U/L (14-36) 05/15/24 10:01
ALT 11 U/L (0-35) 05/15/24 10:01
Alkaline Phosphatase 146 U/L (38-126) H 05/15/24 10:01
Impression/Plan
-
IMPRESSION:
78-year-old female with past medical history of nephrostomy tube placement due to ureteral cancer, CAD, hypertension, hyperlipidemia and insulin-dependent diabetes mellitus presents to the ED after PCP told her to come due to abnormal blood work
drawn routinely 4 days ago.
PLAN:
# Sepsis secondary to UTI
Elevated white blood cell count 44.9, Neutrophils 90%, Respiratory rate 21, blood pressure 92/48.
Urine analysis positive for leukocyte Esterase, occult blood, many bacteria.
Start patient on ceftriaxone, IV fluid bolus, maintenance fluid, ordered routine labs for sepsis workup.
Follow-up with a.m. labs
# Anemia
Hemoglobin 7.4 on admission. Baseline 8.5.
Iron, ferritin, TIBC labs pending
Consent for blood transfusion signed. Monitor hemoglobin levels.
Transfuse if hemoglobin below 7.
#Leukocytosis
Likely secondary to UTI.
Patient also has ureteral mass.
Patient has not received chemoradiotherapy or GSF.
Oncology and urology consult appreciated.
# Hypotension
Holding Lasix
Started IV fluid
Monitor blood pressure
#CKD IIIb
Monitor creatinine and bun.
Baseline creatinine around 1.6.
Baseline bun around 29.
Patient currently at baseline
# Diabetes mellitus type 2
Continue home insulin glargine 11 units
Diabetic diet
# Chronic hypertension
Continue home medication due to history of CABG and CAD.
Holding Lasix
Monitoring blood pressure
# CAD/CABG
Continue aspirin 81 mg, continue atorvastatin
#Tobacco use
Patient quit 1 month ago
Ordered nicotine patches
# Bilateral adrenal adenomas
Benign
[2024-05-15] MEDS: NSS IV (18:56)
[2024-05-15] MEDS: NSS 1000 IV (19:21)
[2024-05-15] MEDS: ELIQUIS 5 MG PO (19:42)
[2024-05-15] MEDS: COREG 12.5 MG PO (19:42)
[2024-05-15 21:41] LABS: Glucose - Point of Care 193 mg/dl (70-99)
[2024-05-15] MEDS: LANTUS 0.11 UNITS SC (22:05)
[2024-05-16] VITALS (12 sets, daily range): BP systolic 97–161; BP diastolic 48–79
[2024-05-16] MEDS: NSS 1000 IV (04:59)
[2024-05-16 07:37] LABS: INR 2.06; PT 23.1 Sec (11.4-14.6)
[2024-05-16 07:45] LABS: ALT (SGPT) < 10 U/L (0-35); AST (SGOT) 16 U/L (14-36); Albumin 2.1 g/dl (3.5-5.0); Alkaline Phosphatase 130 U/L (38-126); Blood Urea Nitrogen 23 mg/dl (7-17); Calcium 8.2 mg/dl (8.4-10.2); Carbon Dioxide 24 mmol/L (22-30); Chloride 107 mmol/L (98-107); Estimated Creatinine Clearance 32 ml/min; Glucose 93 mg/dl (70-99); Potassium 3.6 mmol/L (3.5-5.1); Sodium 134 mmol/L (135-145); Total Bilirubin 0.3 mg/dl (0.2-1.3); eGFR 35.67
[2024-05-16 07:54] LABS: Hemoglobin 6.5 g/dL (12.0-16.0); Iron < 20 ug/dl (37-170); Mean Corp Hgb Conc. 32.5 g/dL (33.0-37.0); Mean Corpuscular Hgb 27.8 pg (27.0-31.0); Mean Corpuscular Volume 85.5 fL (81.0-99.0); Mean Platelet Volume 8.5 fL (7.4-10.4); Platelet Count 318 10^3/uL (130-400); Red Blood Cell Count 2.34 10^6/uL (4.20-5.40); Red Cell Dist. Width 16.5 % (11.5-14.5); Total Iron Binding Capacity 176 ug/dl (265-497); White Blood Cell Count 36.4 10^3/uL (4.8-10.8)
--- NOTE | 2024-05-16 07:54 | CON.ONC ---
Impression
Impression
Sepsis likely secondary to UTI
Anemia - combination of iron deficiency + anemia of chronic disease (cancer)
Leukocytosis
Left ureteral cancer - scheduled for left nephrectomy 05/24
CKD IIIb--baseline creat 1.6
Diabetes mellitus type 2
Essential hypertension
CAD/CABG
Hx prior DVT - remains on Eliquis
Plan
Plan
Elevated white blood cell count 44.9 > 36.4.
Abx Ceftriaxone for UTI initiated.
Diff c/w leukemoid reaction to infection
Transfuse PRBC for HgB < 7
Plans for surgery noted.
Okay to continue PO iron but hold IV iron with active infection.
Regarding anticoagulation, on Eliquis started by Dr. Loo for DVT in legs but never stopped. On Eliquis 5 PO BID + ASA. Typically don't continue Eliquis this long for uncomplicated DVT but would not stop with active cancer except
[place]-operatively.
Patient History
History of Present Illness
CC: Abnormal labs tests
HPI:
78-year-old female with ureteral cancer s/p nephrostomy tube presents to the ED after PCP told her to come due to abnormal blood work drawn routinely 4 days ago. Her white blood cell count was 44.9. Patient was/is asymptomatic. No F/C, urinary
burning. She does state she has some increased pressure and pain in her suprapubic region that is relieved after using the bathroom. In addition she has had bilateral lower extremity edema on left on Lasix. She denies any chest pain, cough,
shortness of breath, abdominal pain, nausea, vomiting, urinary symptoms. She is scheduled for lrft nephrectomy 05/24. She is currently on Eliquis.
Past-Medical/Surgical History
PMH: nephrostomy tube placement due to ureteral cancer s/p nephrostomy tube, CAD, hypertension, hyperlipidemia, diabetes mellitus, Hx DVT (on Eliquis - never stopped)
PSH: CABG, Left knee surgery, Cataracts, corneal transplant left eye, iliac stents,
SH:
Tobacco: Former Smoker
Alcohol: None
Drug: None
Personal:
Living: With Family
Employment: Retired
FH:
Father: cirrhosis. Mother: diagnosis coronary artery disease, Diabetes mellitus type II, stroke. Paternal grandmother: diabetes mellitus. Maternal grandmother: diabetes mellitus. Brother: colon polyp.
Patient Medication
�Medication �Instructions �Recorded �Confirmed �Last Taken �Type
carvedilol 12.5 mg tablet 12.5 mg PO BID Blood Pressure 03/17/11 05/15/24 05/15/24 History
cholecalciferol (vitamin D3) 50 50 mcg PO DAILY Supplement 03/31/24 05/15/24 05/15/24 History
mcg (2,000 unit) tablet
diphenhydramine 25 1 tab PO HS PRN mild pain 03/31/24 05/15/24 05/13/24 History
mg-acetaminophen 500 mg tablet
(Tylenol PM Extra Strength)
insulin glargine 100 unit/mL (3 11 unit SC HS Diabetes 03/31/24 05/15/24 05/14/24 History
mL) subcutaneous pen (Lantus
Solostar U-100 Insulin)
aspirin 81 mg tablet,delayed 81 mg PO DAILY Blood Clot 04/02/24 05/15/24 05/15/24 Rx
release Prevention/Tx #0 tabs
ferrous sulfate 325 mg (65 mg 325 mg PO DAILY anemia #30 tabs 04/02/24 05/15/24 05/15/24 Rx
iron) tablet (FeroSul)
apixaban 5 mg tablet (Eliquis) 5 mg PO BID Blood Clot 05/15/24 05/15/24 05/15/24 History
Prevention/Tx
atorvastatin 80 mg tablet 80 mg PO QPM High Cholesterol 05/15/24 05/15/24 05/14/24 History
cyanocobalamin (vitamin B-12) 1,000 mcg PO DAILY Supplement 07/05/15/24 05/15/24 History
1,000 mcg tablet
docusate sodium 100 mg capsule 200 mg PO HSPRN PRN constipation 05/15/24 05/15/24 Unknown History
(Colace)
furosemide 20 mg tablet (Lasix) 20 mg PO DAILY Fluid 05/15/24 05/15/24 05/15/24 History
Retention/Swelling
therapeutic multivitamin 1 tab PO DAILY Supplement 05/15/24 05/15/24 05/15/24 History
Active Medications
Generic Name Dose Route Start Last Admin
Trade Name Freq PRN Reason Stop Dose Admin
Acetaminophen 500 mg 05/15/24 16:26
Acetaminophen 500 Mg Tablet PO 06/12/24 16:25
HSPRN PRN
MILD PAIN
Apixaban 5 mg 05/15/24 20:00 05/15/24 19:42
Apixaban (Eliquis) 5 Mg Tablet PO 06/12/24 19:59 5 mg
BID VENKATESH Administration
Aspirin 81 mg 05/16/24 08:00
Aspirin 81 Mg (Enteric Coated) Tablet PO 06/13/24 07:59
DAILY VENKATESH
Atorvastatin Calcium 80 mg 05/15/24 18:00 05/15/24 18:06
Atorvastatin (Lipitor) 80 Mg Tablet PO 06/12/24 17:59 80 mg
QPM VENKATESH Administration
Carvedilol 12.5 mg 05/15/24 20:00 05/15/24 19:42
Carvedilol 12.5 Mg Tablet PO 06/12/24 19:59 12.5 mg
BID VENKATESH Administration
Ceftriaxone Sodium 1,000 mg 05/16/24 12:00
Ceftriaxone 1000 Mg / 10 Ml Vial IV
Q24H VENKATESH
Cholecalciferol 50 mcg 05/16/24 08:00
Cholecalciferol (Vitamin D3) 50 Mcg Tablet (2,000 Units) PO 06/13/24 07:59
DAILY VENKATESH
Cyanocobalamin 1,000 mcg 05/16/24 08:00
Cyanocobalamin 1,000 Mcg Tablet PO 06/13/24 07:59
DAILY VENKATESH
Dextrose 12.5 grams 05/15/24 20:33
Dextrose 50% (0.5 Grams/Ml) 50 Ml Syringe IV 06/12/24 20:32
[id number] PRN
hypoglycemia
Protocol
Diphenhydramine HCl 25 mg 05/15/24 16:26
Diphenhydramine 25 Mg Capsule PO 06/12/24 16:25
HSPRN PRN
mild pain
Docusate Sodium 200 mg 05/15/24 16:11
Docusate Sodium 100 Mg Capsule PO 06/12/24 16:10
HSPRN PRN
constipation
Ferrous Sulfate 325 mg 05/16/24 08:00
Ferrous Sulfate 325 Mg Tablet PO 06/13/24 07:59
DAILY VENKATESH
Glucagon 1 mg 05/15/24 20:33
Glucagon 1 Mg Vial IM 06/12/24 20:32
PRN PRN
hypoglycemia
Protocol
Insulin Glargine 11 units/ 0.11 mls @ 0 mls/hr 05/15/24 22:00 05/15/24 22:05
Device SC 06/12/24 21:59 0.11 mls
HS VENKATESH Administration
As Directed
Sodium Chloride 1,000 mls @ 100 mls/hr 05/15/24 18:45 05/16/24 04:59
Nss IV 1,000 mls
.Q10H VENKATESH Administration
Insulin Aspart 0 units 05/16/24 07:30
Insulin Aspart Low Resistance 300 Units/3 Ml Pen.Injctr SC 06/13/24 07:29
AC VENKATESH
Protocol
Multivitamins Therapeutic 1 tablet 05/16/24 08:00
Multivitamin Tablet PO 06/13/24 07:59
DAILY VENKATESH
Nicotine 7 mg 05/16/24 08:00
Nicotine 7 Mg Patch TRANSDERM 06/13/24 07:59
DAILY VENKATESH
Sodium Chloride 0 flush 05/15/24 17:00
Sodium Chloride 0.9% (Flush) Syringe IV 06/12/24 16:59
PER PROTOCOL VENKATESH
Sterile Water 10 ml 05/16/24 12:00
Sterile Water For Injection 10 Ml Vial IV 06/13/24 11:59
Q24H VENKATESH
Physical Exam
-
General: No Apparent Distress and Comfortable
HEENT: Other (alopecia, poor dentition); Negative Jaundice
Cardiology: S1 and S2
Pulmonary: Clear
GI: Soft and Normal Bowel Sounds
Musculoskeletal: Edema, Left Lower Extrem
Psych: Calm
Labs
Lab Results
WBC 36.4 10^3/uL (4.8-10.8) H 05/16/24 07:09
RBC 2.34 10^6/uL (4.20-5.40) L 05/16/24 07:09
Hgb 6.5 g/dL (12.0-16.0) L* 05/16/24 07:09
Hct 20.0 % (37.0-47.0) L* 05/16/24 07:09
MCV 85.5 fL (81.0-99.0) 05/16/24 07:09
MCH 27.8 pg (27.0-31.0) 05/16/24 07:09
MCHC 32.5 g/dL (33.0-37.0) L 05/16/24 07:09
RDW 16.5 % (11.5-14.5) H 05/16/24 07:09
Plt Count 318 10^3/uL (130-400) 05/16/24 07:09
MPV 8.5 fL (7.4-10.4) 05/16/24 07:09
Abs Immat Gran (auto) 1.0 10^3/uL (0-0.05) H 05/15/24 10:01
Absolute Neuts (auto) 40.8 10^3/uL (1.4-6.5) H 05/15/24 10:01
Absolute Lymphs (auto) 1.3 10^3/uL (1.2-3.4) 05/15/24 10:01
Absolute Monos (auto) 1.5 10^3/uL (0.1-0.6) H 05/15/24 10:01
Absolute Eos (auto) 0.2 10^3/uL (0-0.7) 05/15/24 10:01
Absolute Basos (auto) 0.2 10^3/uL (0-0.2) 05/15/24 10:01
Immature Gran % 2.2 % (0-0.5) H 05/15/24 10:01
Neutrophils % 90.7 % (42.2-75.2) H 05/15/24 10:01
Lymphocytes % 3.0 % (20.5-51.1) L 05/15/24 10:01
Monocytes % 3.4 % (1.7-9.3) 05/15/24 10:01
Eosinophils % 0.3 % (0-6) 05/15/24 10:01
Basophils % 0.4 % (0-2) 05/15/24 10:01
Creatinine 1.5 mg/dL (0.6-1.0) H 05/16/24 07:09
Vital Signs
Vital Signs
Temp Pulse Resp BP Pulse Ox
99.2 F 77 18 95/42 94
05/15/24 23:53 05/15/24 23:53 05/15/24 23:53 05/15/24 23:53 05/15/24 23:53
[2024-05-16 08:06] LABS: Procalcitonin 0.16 ng/ml (0.0-0.25)
[2024-05-16 08:18] LABS: Glucose - Point of Care 118 mg/dl (70-99)
[2024-05-16 08:18] LABS: Ferritin 40.6 ng/ml (11.1-264.0)
[2024-05-16] MEDS: NOVOLOG FLEXPEN-LOW RESISTANCE SC (08:19)
[2024-05-16] MEDS: THERAGRAN 1 TABLET PO (08:20)
[2024-05-16] MEDS: COREG 12.5 MG PO ×2 (08:20→20:49)
[2024-05-16] MEDS: FEOSOL 325 MG PO (08:21)
[2024-05-16] MEDS: VITAMIN B-12 1000 MCG PO (08:21)
[2024-05-16] MEDS: VITAMIN D3 (cholecalciferol) 50 MCG PO (08:21)
[2024-05-16] MEDS: ASPIR LOW (ENTERIC COATED) 81 MG PO (08:21)
[2024-05-16] MEDS: ELIQUIS 5 MG PO ×2 (08:21→20:49)
[2024-05-16] MEDS: NICODERM TRANSDERMAL 7 MG TRANSDERM (08:22)
[2024-05-16 08:47] LABS: % Basophils 0.3 % (0-2); % Eosinophils 0.4 % (0-6); % Immature Granulocytes 2.1 % (0-0.5); % Lymphocytes 3.9 % (20.5-51.1); % Monocytes 4.1 % (1.7-9.3); % Neutrophils 89.2 % (42.2-75.2); Absolute Basophils 0.1 10^3/uL (0-0.2); Absolute Eosinophils 0.1 10^3/uL (0-0.7); Absolute Immature Granulocytes 0.8 10^3/uL (0-0.05); Absolute Lymphocytes 1.4 10^3/uL (1.2-3.4); Absolute Monocytes 1.5 10^3/uL (0.1-0.6); Absolute Neutrophils 32.5 10^3/uL (1.4-6.5); Nucleated Red Blood Cells % 0 %
--- NOTE | 2024-05-16 08:48 | W.PN.HOSP.TC ---
Addendum entered and electronically signed by Nasima Lucas MD 05/16/24 13:53:
I saw and evaluated the patient independently. I reviewed the resident�s note and agree with findings and plan as documented by Dr. Coulter.
GENERAL: well developed, well nourished, female in no apparent distress
HEENT: NC/AT--poor dentition
HEART: regular rate and rhythm, +S1, +S2
LUNGS : clear to auscultation bilaterally
ABDOM: soft, nontender, nondistended, + bowel sounds--left nephrostomy tube in place draining clear urine
EXT: no cyanosis, clubbing--4+ LE edema left leg, 3+ LE edema right leg
NEUROLOGIC: grossly intact
: nephrostomy tube in place left side
Sepsis (POA, meets criteria)--resolved-- likely secondary to UTI (mixed aiden on urine culture--NOT collected from nephrostomy tube)--Elevated white blood cell count improved to 36.4--cont ceftriaxone--follow labs--apprec urology
Anemia--likely chronic with combination of iron deficiency (takes iron at home) plus anemia of chronic disease (cancer)--Hemoglobin 7.4 on admission, dropped to 6.4 with hydration (expected)--transfuse 2 units pRBC with lasix 40 mg in between
--Consent for blood transfusion signed. Monitor hemoglobin levels--Transfuse if hemoglobin below 7
Leukocytosis--Likely secondary to UTI but could have elevated baseline due to cancer--follow with treatment of infection--apprec onc/urology
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
Hypotension--improved with IVF--follow for now--hold lasix
CKD IIIb--baseline creat 1.6--renal dose meds
Diabetes mellitus type 2--Continue home insulin glargine 11 units--Diabetic diet--SSI and check HGB A1C
Essential hypertension--Continue home medication due to history of CABG and CAD--cont coreg--Holding Lasix
CAD/CABG--Continue aspirin 81 mg, continue atorvastatin
Tobacco use--Patient quit 1 month ago--Ordered nicotine patches
Bilateral adrenal adenomas--likely Benign
DVT proph -- Eliquis
Code Status -- FULL CODE
Original Note:
Today's Communication/Plan
-
Continue patient on antibiotic therapy and monitor WBC count. Transfuse one pack of RBC. Hg 6.5.
Assessment / Plan
Assessment / Plan
Impression:
78-year-old female with past medical history of nephrostomy tube placement due to ureteral cancer, CAD, hypertension, hyperlipidemia and insulin-dependent diabetes mellitus presents to the ED after PCP told her to come due to abnormal blood work
drawn routinely 4 days ago.
Plan
#Sepsis secondary to UTI
Elevated white blood cell count 44.9, Neutrophils 90%, Respiratory rate 21, blood pressure 92/48.
Urine analysis positive for leukocyte Esterase, occult blood, many bacteria.
Start patient on ceftriaxone, IV fluid bolus, maintenance fluid, ordered routine labs for sepsis workup.
Today white blood cell count 36.4. Continue on ceftriaxone. Urology agrees.
#Anemia
Hemoglobin 7.4 on admission. Baseline 8.5.
Iron, ferritin, TIBC labs pending
Consent for blood transfusion signed. Monitor hemoglobin levels.
Hemoglobin today 6.5. Transfuse 2 units of red blood cells.
Crackles heard on physical exam give Lasix in between RBC transfusions
Patient denies any history of CHF
Okay to continue p.o. iron but hold IV iron with active infection per oncology.
#Leukocytosis
Likely secondary to UTI.
Patient also has ureteral mass.
Patient has not received chemoradiotherapy or GSF.
Elevated white blood cell likely secondary to UTI per oncology.
#Hypotension
Holding Lasix
Started IV fluid. IV fluids stopped while transfusing RBCs. Crackles heard on physical exam
Monitor blood pressure
# Ureteral cancer
-Scheduled for left kidney nephrectomy next week
-Monitor nephrostomy tube for any signs of infection
-Oncology consulted recommends continuation of ceftriaxone, transfuse red blood cells if below 7
#CKD 3B
Monitor creatinine and bun.
Baseline creatinine around 1.6.
Baseline bun around 29.
Patient currently at baseline
#Diabetes mellitus type 2
Continue home insulin glargine 11 units
Diabetic diet
#Chronic hypertension
Holding Lasix and home medication
Monitoring blood pressure
#CAD/CABG
Continue aspirin 81 mg, continue atorvastatin
#Tobacco use
Patient quit 1 month ago
Ordered nicotine patches
#Bilateral adrenal adenomas
Likely benign
Anticipated Discharge: Today
Subjective/Interval History
-
Date of Service: May 16, 2024
Patient feels well and has no complaints.
Objective Data
-
Labs:
Laboratory Results
05/16/24
07:09
WBC 36.4 H
Hgb 6.5 L*
Hct 20.0 L*
Plt Count 318
PT 23.1 H
INR 2.06
APTT 47.0 H
Sodium 134 L
Potassium 3.6
Chloride 107
Carbon Dioxide 24
BUN 23 H
Creatinine 1.5 H
Glucose 93
Calcium 8.2 L
Total Bilirubin 0.3
AST 16
ALT < 10
Alkaline Phosphatase 130 H
Vital Signs:
Vital Signs
Temp Pulse Resp BP Pulse Ox
97.9 F 82 18 103/54 96
05/16/24 07:00 05/16/24 07:00 05/16/24 07:00 05/16/24 08:20 05/16/24 07:00
I&O
07/30/24 07/31/24 08/01/24
06:59 06:59 06:59
Intake Total 1260 / 1260
Output Total 275 / 275
Balance 985 / 985
Review of Systems
-
History Source: Patient
Constitutional: Reports No Symptoms
Physical Exam
-
General: Well Developed, Well Nourished, No Apparent Distress and Comfortable
Respiratory: Crackles
Cardiac: Regular Rhythm and S1/S2
GI: Soft, Nontender and Nondistended
Musculoskeletal: Edema, Right Lower Extrem and Edema, Left Lower Extrem
Neuro: AO x 3
Psych: Calm
[2024-05-16 08:49] LABS: Hypochromasia 1+; Microcytosis 1+; Normal RBC Morphology No
[2024-05-16 08:50] LABS: Acanthocytes 1+
[2024-05-16 09:14] LABS: Glycohemoglobin (HgbA1c) 6.9 % (4.0-5.6)
--- NOTE | 2024-05-16 11:19 | W.PN.UPDATE ---
Update Note
Progress Note Update
cUTI
Leukocytosis
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
Anemia
CKD 3b
Referred to ED after abnormal labs noted w/ WBC 44.9 from 36.4.
Scheduled tentatively for robotic left nephroureterectomy on 05/24/24.
Denies dysuria, F/C, N/V.
Notes suprapubic pressure and discomfort.
WBC
Hgb 6.5 (from 7.4)
Cr 1.5 (baseline 1.6)
UA moderate bacteria, many yeast, 6-10 WBCs
UCx pending
- Continue IV Ceftriaxone pending Cx S/S
- Maintain left nephrostomy to drainage
- IVF resuscitation and pRBC per Hospitalist
- Tentatively scheduled for OR 05/24 - will d/w Dr. Singh regarding surgical timing
[2024-05-16 11:42] LABS: Glucose - Point of Care 216 mg/dl (70-99)
[2024-05-16] MEDS: NOVOLOG FLEXPEN-LOW RESISTANCE 2 UNITS SC (11:52)
[2024-05-16] MEDS: ROCEPHIN 1000 MG IV (11:53)
[2024-05-16] MEDS: STERILE WATER FOR INJECTION 10 ML IV (11:54)
[2024-05-16 16:33] LABS: Glucose - Point of Care 170 mg/dl (70-99)
[2024-05-16] MEDS: LASIX 40 MG IV (17:09)
[2024-05-16] MEDS: LIPITOR 80 MG PO (17:12)
[2024-05-16] MEDS: NOVOLOG FLEXPEN-LOW RESISTANCE 1 UNITS SC (17:13)
[2024-05-16 21:48] LABS: Glucose - Point of Care 224 mg/dl (70-99)
[2024-05-16] MEDS: LANTUS 0.11 UNITS SC (21:58)
[2024-05-17 03:09] VITALS: BMI 29.3
--- NOTE | 2024-05-17 06:10 | W.PN.HOSP.TC ---
Addendum entered and electronically signed by Nasima Lucas MD 05/17/24 19:50:
I saw and evaluated the patient independently. I reviewed the resident�s note and agree with findings and plan as documented by Dr. Coulter.
GENERAL: well developed, well nourished, female in no apparent distress
HEENT: NC/AT--poor dentition
HEART: regular rate and rhythm, +S1, +S2
LUNGS : clear to auscultation bilaterally
ABDOM: soft, nontender, nondistended, + bowel sounds--left nephrostomy tube in place draining clear urine
EXT: no cyanosis, clubbing--4+ LE edema left leg, 3+ LE edema right leg
NEUROLOGIC: grossly intact
: nephrostomy tube in place left side
Sepsis (POA, meets criteria)--resolved-- likely secondary to UTI (mixed aiden on urine culture--NOT collected from nephrostomy tube)--Elevated white blood cell count improved to 36.4--stop ceftriaxone, no abx at d/c--follow labs--apprec urology
Anemia--likely chronic with combination of iron deficiency (takes iron at home) plus anemia of chronic disease (cancer)--Hemoglobin 7.4 on admission, dropped to 6.4 with hydration (expected)--transfuse 2 units pRBC with lasix 40 mg in between
--Consent for blood transfusion signed. Monitor hemoglobin levels--improved to 9.4
Leukocytosis--Likely secondary to presumed UTI but could have elevated baseline due to cancer--follow with treatment of infection--apprec onc/urology
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
Hypotension--improved with IVF--follow for now--hold lasix
CKD IIIb--baseline creat 1.6--renal dose meds
Diabetes mellitus type 2--Continue home insulin glargine 11 units--Diabetic diet--SSI and check HGB A1C
Essential hypertension--Continue home medication due to history of CABG and CAD--cont coreg--Holding Lasix
CAD/CABG--Continue aspirin 81 mg, continue atorvastatin
Tobacco use--Patient quit 1 month ago--Ordered nicotine patches
Bilateral adrenal adenomas--likely Benign
DVT proph -- Eliquis
Code Status -- FULL CODE
Original Note:
Today's Communication/Plan
-
Patient clinically stable for discharge. Resumed home meds. Will follow-up with urologist next week.
Assessment / Plan
Assessment / Plan
Impression:
78-year-old female with past medical history of nephrostomy tube placement due to ureteral cancer, CAD, hypertension, hyperlipidemia and insulin-dependent diabetes mellitus presents to the ED after PCP told her to come due to abnormal blood work
drawn routinely 4 days ago.
Plan
#Sepsis secondary to UTI
Elevated white blood cell count 44.9, Neutrophils 90%, Respiratory rate 21, blood pressure 92/48.
Urine analysis positive for leukocyte Esterase, occult blood, many bacteria.
Start patient on ceftriaxone, IV fluid bolus, maintenance fluid, ordered routine labs for sepsis workup.
Urine and blood culture came back negative.
Today white blood cell count 32.9.
Blood and urine cultures are negative
Patient clinically stable and has no complaints.
Discharged today.
#Anemia
Hemoglobin 7.4 on admission. Baseline 8.5.
Iron, ferritin, TIBC labs pending
Consent for blood transfusion signed. Monitor hemoglobin levels.
Hemoglobin went from 6.5 to 9.4 after giving 2 units PRBC yesterday.
Crackles heard on physical exam give Lasix in between RBC transfusions. Crackles not heard by nurse after lasix last night, but reappeared this morning.
Given one dose of IV lasix before discharge.
Patient sent home continuing home dose of lasix.
Patient denies any SOB, chest pain or palpitations. Appears comfortable and breathing well.
Patient denies any history of CHF
Okay to continue p.o. iron but hold IV iron with active infection per oncology.
Clinically stable for discharge.
#Leukocytosis
Likely secondary to UTI.
Patient also has ureteral mass.
Patient has not received chemoradiotherapy or GSF.
Elevated white blood cell likely due to malignancy after cultures came back negative.
Discharged today.
#Bilateral lower extremity edema
- Patient had lower extremity pitting edema suspected secondary to low oncotic pressure prior to admission.
-PCP put her on lasix
-Lower extremity pitting edema has decreased, but still edemetous.
-Patient discharged on previous home lasix dose.
#Hypotension
Hold lasix after admission. Started IV fluid. Monitor BP.
Hypotension improved. Pt shows signs of volume overload with crackles on PE.
IV fluids stopped while transfusing RBCs. Crackles heard on physical exam
Patient now normotensive. Discharge today.
# Ureteral cancer
-Scheduled for left kidney nephrectomy next week
-Monitor nephrostomy tube for any signs of infection
-Oncology consulted recommends continuation of ceftriaxone, transfuse red blood cells if below 7
#CKD 3B
Monitor creatinine and bun.
Baseline creatinine around 1.6.
Baseline bun around 29.
Patient currently at baseline
#Diabetes mellitus type 2
Continue home insulin glargine 11 units
Diabetic diet
#Chronic hypertension
Holding Lasix and home medication
Monitoring blood pressure
Restared home meds after discharge.
#CAD/CABG
Continue aspirin 81 mg, continue atorvastatin
#Tobacco use
Patient quit 1 month ago
Ordered nicotine patches
#Bilateral adrenal adenomas
Likely benign
Anticipated Discharge: Today
Subjective/Interval History
-
Date of Service: May 17, 2024
Objective Data
-
Labs:
Laboratory Results
05/17/24
06:00
WBC Pending
Hgb Pending
Hct Pending
Plt Count Pending
Sodium Pending
Potassium Pending
Chloride Pending
Carbon Dioxide Pending
BUN Pending
Creatinine Pending
Glucose Pending
Calcium Pending
Vital Signs:
Vital Signs
Temp Pulse Resp BP Pulse Ox
98.0 F 75 18 129/58 97
05/16/24 23:55 05/16/24 23:55 05/16/24 23:55 05/16/24 23:55 05/16/24 23:45
I&O
05/15/24 05/16/24 05/17/24
06:59 06:59 06:59
Intake Total 1260 / 1260 1230 / 1230
Output Total 275 / 275 310 / 310
Balance 985 / 985 920 / 920
Review of Systems
-
History Source: Patient
EENT: Reports No Symptoms Reported
Respiratory: Reports No Symptoms; Denies Trouble Breathing or Wheezing
Cardiac: Reports No Symptoms; Denies Chest Pain or Diaphoresis
Abdomen/GI: Reports No Symptoms
Genitourinary: Reports Dark Urine; Denies Dysuria
Neuro: Reports No Symptoms
Physical Exam
-
General: Well Developed, Well Nourished, No Apparent Distress and Comfortable
HEENT: Normocephalic
Respiratory: Crackles
Cardiac: Regular Rhythm and S1/S2
GI: Soft, Nontender, Nondistended and Normal Bowel Sounds
Musculoskeletal: Edema, Right Lower Extrem and Edema, Left Lower Extrem
Neuro: AO x 3
Psych: Calm
[2024-05-17 07:00] VITALS: BP 113/52
[2024-05-17 07:32] LABS: Glucose - Point of Care 128 mg/dl (70-99)
[2024-05-17 07:50] LABS: Hematocrit 28.2 % (37.0-47.0); Hemoglobin 9.4 g/dL (12.0-16.0); Mean Corp Hgb Conc. 33.3 g/dL (33.0-37.0); Mean Corpuscular Hgb 28.8 pg (27.0-31.0); Mean Corpuscular Volume 86.5 fL (81.0-99.0); Mean Platelet Volume 8.4 fL (7.4-10.4); Platelet Count 314 10^3/uL (130-400); Red Blood Cell Count 3.26 10^6/uL (4.20-5.40); Red Cell Dist. Width 16.5 % (11.5-14.5); White Blood Cell Count 32.9 10^3/uL (4.8-10.8)
[2024-05-17 08:17] LABS: Blood Urea Nitrogen 21 mg/dl (7-17); Calcium 9.1 mg/dl (8.4-10.2); Carbon Dioxide 25 mmol/L (22-30); Chloride 104 mmol/L (98-107); Estimated Creatinine Clearance 36 ml/min; Glucose 113 mg/dl (70-99); Potassium 3.8 mmol/L (3.5-5.1); Sodium 135 mmol/L (135-145); eGFR 42.35
[2024-05-17 08:18] LABS: % Basophils 0.4 % (0-2); % Eosinophils 0.5 % (0-6); % Immature Granulocytes 1.9 % (0-0.5); % Lymphocytes 4.2 % (20.5-51.1); % Monocytes 4.3 % (1.7-9.3); % Neutrophils 88.7 % (42.2-75.2); Absolute Basophils 0.1 10^3/uL (0-0.2); Absolute Eosinophils 0.2 10^3/uL (0-0.7); Absolute Immature Granulocytes 0.6 10^3/uL (0-0.05); Absolute Lymphocytes 1.4 10^3/uL (1.2-3.4); Absolute Monocytes 1.4 10^3/uL (0.1-0.6); Absolute Neutrophils 29.2 10^3/uL (1.4-6.5); Nucleated Red Blood Cells % 0 %
[2024-05-17 08:50] VITALS: BP 124/60; PULSE 73; O2SAT 96
[2024-05-17] MEDS: ASPIR LOW (ENTERIC COATED) 81 MG PO (09:00)
[2024-05-17] MEDS: ELIQUIS 5 MG PO (09:00)
[2024-05-17] MEDS: COREG 12.5 MG PO (09:00)
[2024-05-17] MEDS: FEOSOL 325 MG PO (09:00)
[2024-05-17] MEDS: NICODERM TRANSDERMAL 7 MG TRANSDERM (09:00)
[2024-05-17] MEDS: VITAMIN D3 (cholecalciferol) 50 MCG PO (09:00)
[2024-05-17] MEDS: THERAGRAN 1 TABLET PO (09:00)
[2024-05-17] MEDS: VITAMIN B-12 1000 MCG PO (09:00)
[2024-05-17] MEDS: NOVOLOG FLEXPEN-LOW RESISTANCE SC (09:00)
[2024-05-17 09:03] VITALS: BP 124/60; PULSE 73; O2SAT 96
--- NOTE | 2024-05-17 10:05 | VNURNOTE ---
Chart reviewed. The patient is current with [facility]. Per notes, patient would like to resume with [facility] services. Referral placed in [facility]. Will watch hospital course and plan - SNF v. [facility].
--- NOTE | 2024-05-17 11:04 | CM ---
Patient seen at bedside with physicians. Patient for possible discharge home with [facility] to follow. Per liaison [facility] has accepted patient for [facility]. Patient completed IMM and signed form placed on chart. Patient states that she is calling her or
brother for transportation home. CM will continue to follow for discharge planning needs.
Plan; home with [facility] to follow
[2024-05-17 11:37] LABS: Glucose - Point of Care 200 mg/dl (70-99)
[2024-05-17] MEDS: NOVOLOG FLEXPEN-LOW RESISTANCE 2 UNITS SC (11:38)
[2024-05-17] MEDS: STERILE WATER FOR INJECTION 10 ML IV (11:44)
[2024-05-17] MEDS: ROCEPHIN 1000 MG IV (11:45)
[2024-05-17 12:30] VITALS: BP 124/61
[2024-05-17] MEDS: LASIX 20 MG IV (12:34)
[2024-05-17] MEDS: COLACE 200 MG PO (12:35)
--- NOTE | 2024-05-17 18:57 | W.DCSUMMARY ---
Addendum entered and electronically signed by Nasima Lucas MD 05/17/24 19:51:
Read, reviewed, and agree. See same day progress note for additional details. Time spent coordinating care, DC planning, review of DC plan of care with resident, transition of care, review of records in EMR, med rec, consults, notes, d/w
consultants, nursing, family, and CM = 31 mins
Original Note:
Discharge Summary
Discharge Data
Date of Admission: 05/15/24
Date of Discharge: 05/17/24
-
Pending Results: No
Hospital Course
Primary diagnosis:
-Sepsis secondary to urinary tract infection
-Anemia
-Leukocytosis
-Hypotension
Secondary diagnosis:
-Bilateral lower extremity edema
-Ureteral cancer
-chronic kidney disease 3B
-essential hypertension
-coronary artery disease
-tobacco use
-bilateral adrenal adenomas
Hospital course:
78-year-old female with past medical history of nephrostomy tube placement due to ureteral cancer, CAD, hypertension, hyperlipidemia and insulin-dependent diabetes mellitus presented to the ED on 05/15 after PCP told her to come in due to abnormal
blood work drawn routinely 4 days ago. Her white blood cell count was 44.9. Patient was unaware there was an infection and only complaint was discomfort when bladder was full and relieved after peeing. To note patient had a left nephrectomy
scheduled for 05/[address] Singh due to ureteral cancer. Urine analysis was positive for leukocyte esterase, occult blood, and many bacteria. Respiratory rate was 21, blood pressure 92/48, neutrophils 90%. Nephrostomy drainage color was
brownish-red. Hemoglobin was 7.4 on admission. Patient was admitted for sepsis secondary to suspected UTI and placed on IV antibiotics. In addition patient presented with bilateral lower extremity edema. Her PCP placed her on Lasix. Lasix was
held while in the hospital due to hypotension. After giving IV fluids overnight the next morning the patient's RBC was 6.5. Patient was given 2 units of blood and became normotensive. RBC went back up to 9.4. Signs of volume overload on physical
exam with pulmonary crackles in the lung bases was heard so patient was restarted on Lasix. Patient was also seen by oncology and urology while in the hospital. Both concurred to continue IV ceftriaxone pending culture. White blood cells down
trended to 32.9 on 05/17/24. On 05/17/24 urine and blood cultures came back negative for any sign of infection. Nephrostomy tube drainage color improved significantly to almost clear. Elevated leukocytosis likely secondary to cancer rather than
infection. During entire clinical course patient had no complaints.
Today, patient is clinically stable. Discharged with recommendations to follow-up with PCP and urology. Patient restarted on prior home medications including Lasix.
Discharge Plan
-
Patient Disposition: Home with Home Care
Discharge Diagnosis/Procedures: Sepsis likely secondary to urinary tract infection, anemia, leukocytosis, ureteral cancer, hypotension, chronic kidney disease 3B, diabetes mellitus type 2, essential hypertension, coronary artery disease, tobacco
use, bilateral adrenal adenomas
Condition: Good
Diet: As tolerated
Activity: As tolerated
Driving Restrictions: As prior to admission
Bathing Restrictions: None
Other Services: VN
Referrals:
Jose Fountain PA-C [Family Provider] - in one week
Murphy Singh MD [Active] - in one week
Additional Discharge Medication Instructions: Stop Eliquis 2 days before surgery
Prescriptions:
Continued
carvedilol 12.5 MG tablet
12.5 mg PO BID
insulin glargine [Lantus Solostar U-100 Insulin] 100 unit/mL (3 mL) Insulin Pen
11 unit SC HS
cholecalciferol (vitamin D3) 50 mcg (2,000 unit) Tablet
50 mcg PO DAILY
diphenhydramine-acetaminophen [Tylenol PM Extra Strength] 25-500 mg Tablet
1 tab PO HS PRN (Reason: mild pain)
ferrous sulfate [FeroSul] 325 mg (65 mg iron) Tablet
325 mg PO DAILY Qty: 30 0RF
aspirin 81 mg Tablet,Delayed Release (Dr/Ec)
81 mg PO DAILY Qty: 0 0RF
therapeutic multivitamin Tablet
1 tab PO DAILY
docusate sodium [Colace] 100 mg Capsule
200 mg PO HSPRN PRN (Reason: constipation)
furosemide [Lasix] 20 mg Tablet
20 mg PO DAILY
Eliquis 5 mg Tablet
5 mg PO BID
atorvastatin 80 mg tablet
80 mg PO QPM
cyanocobalamin (vitamin B-12) 1,000 mcg tablet
1,000 mcg PO DAILY
Discharge Orders:
Discharge Patient (As Directed); Ordered 05/17/24
Ordered By: Lindsay Coulter
Discharge Date and Time
Discharge Date/Time: 05/17/24 13:12
Print Language: FRENCH
== END 2024-05-17 13:12 | disposition home health service (06) | DRG 872 ==
LOC: 4 WEST ACU 14:30
PROVIDERS: Physician Assistant; ADMITTING PHYSICIAN Internal Medicine; CONSULT PHYSICIAN Surgery; EMERGENCY PHYSICIAN Emergency Medicine; FAMILY PHYSICIAN Physician Assistant Medical; OTHER PHYSICIAN Internal Medicine Hematology & Oncology
PROC: 30233N1 Transfusion of Nonautologous Red Blood Cells into Peripheral Vein, Percutaneous Approach (ICD-10-PCS; 2024-05-16)
DX: A41.9 Sepsis, unspecified organism (principal); N39.0 Urinary tract infection, site not specified; C66.2 Malignant neoplasm of left ureter; E11.22 Type 2 diabetes mellitus with diabetic chronic kidney disease; I12.9 Hypertensive chronic kidney disease with stage 1 through stage 4 chronic kidney disease, or unspecified chronic kidney disease; N18.32 Chronic kidney disease, stage 3b; D50.9 Iron deficiency anemia, unspecified; D63.0 Anemia in neoplastic disease; Z95.820 Peripheral vascular angioplasty status with implants and grafts; I95.9 Hypotension, unspecified; I25.10 Atherosclerotic heart disease of native coronary artery without angina pectoris; Z95.1 Presence of aortocoronary bypass graft; E78.00 Pure hypercholesterolemia, unspecified; D72.823 Leukemoid reaction; D35.02 Benign neoplasm of left adrenal gland; D35.01 Benign neoplasm of right adrenal gland; R60.0 Localized edema; Z79.01 Long term (current) use of anticoagulants; Z79.4 Long term (current) use of insulin; Z79.82 Long term (current) use of aspirin; Z79.899 Other long term (current) drug therapy; Z86.718 Personal history of other venous thrombosis and embolism; Z87.891 Personal history of nicotine dependence; Z93.6 Other artificial openings of urinary tract status; Z94.7 Corneal transplant status; Z82.49 Family history of ischemic heart disease and other diseases of the circulatory system; Z83.3 Family history of diabetes mellitus
CPT/HCPCS: 80048; 80053; 81003; 81015; 82728; 82962; 83036; 83540; 83550; 83605; 84145; 85025; 85610; 85730; 86850; 86900; 86901; 86920; 87040; 87086; 96374; 97162; 97166; 99285; P9016

== ENCOUNTER 2024-06-06 12:21 | Inpatient (IN) | payer OTHER, SELFPAY ==
[2024-06-06] VITALS (29 sets, daily range): BP systolic 83–118; BP diastolic 46–73; BMI 27.9
--- NOTE | 2024-06-06 10:31 | ED.GENMED ---
History of Present Illness
General
Chief Complaint: Weakness
Source: patient, records and ambulance crew
Time Seen by Provider: 06/06/24 10:19
History of Present Illness
History of Present Illness:
78-year-old female with past medical history of CVA, CAD, hypertension, hyperlipidemia, newly diagnosed left ureteral cancer (known to Dr. Singh from urology, Dr. Mead from oncology) presenting to the emergency department for evaluation after 2
separate falls over the last 2 days and generalized weakness. Patient lives at home with who is unable to get her up off the ground. Patient had recent admission at this facility for sepsis secondary to urinary tract infection,
subsequently developed anemia status posttransfusion. Patient reporting that she was supposed to have surgery on May 24 however surgery was canceled due to the anemia. Patient denies any fevers stating that her highest temperature was around
99.1 a few days ago. Yesterday noticed no output with in the nephrostomy bag which is atypical for her. Presently patient is only noting generalized weakness but no other specific concerns at this time.
Past History
Past History
ED Past Medical History: CAD, Cancer, CVA, HTN, Hypercholesterolemia and IDDM
ED Past Surgical History: Cardiac, Orthopedic and Other
Social History
Tobacco: Non-smoker
Alcohol: None
Drug: None
Personal:
Living: with family
Family History
Family History: Negative Diabetes, Hypertension, Early CAD, Asthma or Cancer
Review of Systems
Review of Systems
All Other Systems: ROS reviewed and negative except as documented in HPI and ROS
Phy Exam
Physical Exam
Physical Exam:
GENERAL: Alert , in no apparent distress, unkempt, appears older than stated age, sick
HEAD: NCAT
EYE: clear conjunctiva
NECK: Supple
ENT: dry mucous membranes, poor dentition
CARDIAC: Tachycardic rate and rhythm, heart rate between 140 and 144 bpm
LUNGS: Clear breath sounds bilaterally, no acute respiratory distress, no wheezes/rales/rhonchi
ABDOMEN: Soft, without focal tenderness, no r/g, no cvat
NEUROLOGICAL: Alert and oriented x 3
SKIN: Warm and dry, skin intact.
MUSCULOSKELETAL: Significant bilateral lower extremity edema, left worse than right
PSYCH: Normal and appropriate interaction.
Scores
Heart Failure Risk
Heart Failure Risk Score: Not Applicable
Heart Score for Chest Pain Patients
STEMI patient?: Not applicable
Withdrawal Assessment of Alcohol
Withdrawal Assessment Completed?: Not applicable
Course
Orders/Labs/Results
Orders:
Orders
06/06/24
Electrocardiogram (*1) Stat
Other Reason for Exam: CP
Comment: DONE
06/06/24 10:28
Straight cath- Treatment ONCE
0.9% Sodium Chloride 1000 ml [Nss] 2,200 ml IV NOW STA
Cefepime HCl [Maxipime] 2,000 mg IV NOW STA
CR Chest Portable - 1 View Urgent
Comment:
Reason For Exam: tachy, sepsis eval
Reason Study Needs to be Portable: Unable to Transport
06/06/24 10:32
Complete Blood Count/With Diff Urgent
Comprehensive Metabolic Panel Urgent
Lactic Acid Q4H
Comment: CANCEL 2nd LACTIC ACID IF 1st LACTIC ACID IS LESS THAN 2
Urinalysis Reflex To Culture Urgent
Date Specimen was Collected: 06/06/24
Time Specimen was Collected: 10:30
Urine Microscopic Reflex Cult Urgent
Blood Culture Urgent
LUCY Source: Blood/Venous
Specimen Description:
Urine Culture Urgent
LUCY Source: U
Specimen Description:
Date Specimen was Collected: 06/06/24
Time Specimen was Collected: 10:30
06/06/24 10:51
Case Management Consult ONCE
Case Management Consult: Other
Discharge Planning
06/06/24 10:58
Blood Culture Routine
LUCY Source: Blood/Venous
Specimen Description:
06/06/24 11:31
Gentamicin Sulfate [Gentamicin] 150 mg 0.9% Sodium Chloride [Nss] 50 ml IV NOW
06/06/24 11:50
Consult Interventional Radiology [IRAD CONSULT] Urgent
Consulting Provider: Neto Smith
Was physician already notified: Yes
Reason for Consult/Procedure: nephrostomy eval
Acknowledgement that appropriate orders are entered: Yes
06/06/24 12:00
Admit/Transfer Patient As Directed
Co-Sign Provider:
Level of Care: Inpatient admission
Assign to:: ICU
Physician / Group: Jaron
Diagnosis: Septic shock, pyelonephritis
Reason for Hospitalization: IV antibiotics, urology consult
Expected length of stay greater than two midnights?: Yes
ELOS- Estimated Length of Stay in days: 4
I certify the patient meets the requirements for IP care: Yes
PRN Pain Medication Management As Directed
May give lesser potent ordered pain med per pt: Yes
preference::
Protocol:: Medication orders for pain may be administered in a
manner that supports deferring to patient preference
when the pt is:
- Requesting an ordered lesser potent pain medication.
Least to most potent pain medications are defined
as: acetaminophen < NSAID < tramadol < opioids
(morphine, oxycodone, hydromorphone).
- Requesting a lesser dose of the same medication IF
ORDERED.
- Requesting a less intrusive route of administration
if both routes are prescribed by the provider (PO <
IV).
06/06/24 12:02
Code Status As Directed
Resuscitation Status: Full Code
06/06/24 14:30
Lactic Acid Q4H
Comment: CANCEL 2nd LACTIC ACID IF 1st LACTIC ACID IS LESS THAN 2
Abnormal Lab Results
06/06/24
10:32
WBC 92.4 H* 10^3/uL
(4.8-10.8)
RBC 3.61 L 10^6/uL
(4.20-5.40)
Hgb 10.1 L g/dL
(12.0-16.0)
Hct 30.8 L %
(37.0-47.0)
MCHC 32.8 L g/dL
(33.0-37.0)
RDW 17.2 H %
(11.5-14.5)
Abs Immat Gran (auto) 3.9 H 10^3/uL
(0-0.05)
Absolute Neuts (auto) 85.7 H 10^3/uL
(1.4-6.5)
Absolute Monos (auto) 1.6 H 10^3/uL
(0.1-0.6)
Immature Gran % 4.2 H %
(0-0.5)
Neutrophils % 92.8 H %
(42.2-75.2)
Lymphocytes % 1.3 L %
(20.5-51.1)
Sodium 133 L mmol/L
(135-145)
BUN 33 H mg/dl
(7-17)
Creatinine 1.7 H mg/dL
(0.6-1.0)
Glucose 228 H mg/dl
(70-99)
Lactic Acid 3.5 H mmol/L
(0.7-2.0)
Calcium 10.8 H mg/dl
(8.4-10.2)
Alkaline Phosphatase 250 H U/L
(38-126)
Albumin 3.0 L g/dl
(3.5-5.0)
Ur Occult Blood Reflex 1+ A
(Negative)
Leukocyte Esterase Rfl 2+ A
(Negative)
Urine RBC 7-10 A /HPF
(0-2)
Urine WBC (Reflex) >100 A /HPF
(0-5)
Urine Yeast Many A
(Negative)
06/06/24 10:32
06/06/24 10:32
Vital Signs
Initial and Last Documented VS:
Initial Vital Signs
Temp Pulse Resp BP Pulse Ox
96.8 F L 145 20 97/59 90
06/06/24 10:19 06/06/24 10:19 06/06/24 10:19 06/06/24 10:19 06/06/24 10:19
Last Documented Vital Signs
Temp Pulse Resp BP Pulse Ox
96.8 F L 145 20 97/59 90
06/06/24 10:19 06/06/24 10:19 06/06/24 10:19 06/06/24 10:19 06/06/24 10:19
MDM/Problems Addressed
Differential Diagnosis Includes:
Nephrostomy complication, complicated urinary tract infection, sepsis
MDM/Problems Addressed:
78-year-old female presenting to the emergency department for evaluation after 2 reported falls and generalized weakness, found by EMS to have hypotension, tachycardia and low pulse ox. On arrival here patient's pulse ox wavers between 85 to 98%.
Difficult to get a waveform although patient was very cool to the touch so this may be playing a role. Temperature 96.9 orally. Patient quite tachycardic and hypotensive. Sepsis workup initiated. Suspect urinary source especially given patient's
recent history combined with no nephrostomy tube output. Patient's last urine culture grew Klebsiella. Antibiotics ordered based off of this culture. Sepsis fluid bolus ordered. Anticipate readmission
Chronic conditions affecting care: Kidney disease and Cancer
Acute Exacerbation and/or Progression of Chronic Illness: Cancer
*Radiology
Radiology exam reviewed: preliminary read by ED provider
*Pulse Oximetry
Patient hypoxic: no
*EKG
Interpreted by ED Provider?: Yes
Comparison EKG: no changes
Heart Rate: 142
Rate: tachycardiac
Rhythm: sinus
[place]: normal axis
Ischemia: no ischemia
*Vision Rehabilitation Therapist Interpretation
Rate: tachycardiac
Rhythm: sinus
*Critical Care Note
Total Time (30-74mins, 75-104mins- exclusive of procedures): Not Applicable
Data Reviewed
Review of Other/Old Records Reveals: Labs, Records and Discharge Summary
Patient Management
Discussion with other providers: Hospitalist
Escalation/DeEscalation of care consider admission/obs:
Patient has leukocytosis of 92,000. This is up from 30,000 upon her discharge on May 17. Hemoglobin stable, creatinine also appears to be within patient's baseline. Lactic acid of 0.5. Patient was treated with IV fluids and sepsis fluid bundle
as well as antibiotics. Interventional radiology was made aware as they can evaluate patient's nephrostomy. Hospitalist accepts for continued evaluation and treatment
ED Attending Note
-
Portions of this chart may have been created with voice recognition software.� Occasional wrong word or��sound alike� substitutions may have occurred due to the inherent limitations of voice recognition software.
Discharge Plan
Departure
Patient Disposition: Admit
Date of Disposition: 06/06/24
Time of Disposition: 11:19
Presentation/result/management discussed w/ accepting MD/DO: Hospitalist
Discharge Problem:
Sepsis, Acute UTI, CKD (chronic kidney disease)
Interventions
Interventions:
*Risk Screen - Suicide Last Done: 06/06/24 10:19
*General Assessment Last Done: 06/06/24 10:19
*Neglect/Abuse Screening Last Done: 06/06/24 10:19
[2024-06-06 10:45] LABS: Urine Albumin Trace (Neg - Trace); Urine Bilirubin Negative (Negative); Urine Character Very Cloudy (Clear); Urine Color Yellow; Urine Glucose Negative (Negative); Urine Ketone Negative (Negative); Urine Leukocyte 2+ (Negative); Urine Nitrite Negative (Negative); Urine Occult Blood 1+ (Negative); Urine Urobilinogen Negative (Neg - 1+)
[2024-06-06 11:00] LABS: ALT (SGPT) 18 U/L (0-35); AST (SGOT) 22 U/L (14-36); Alkaline Phosphatase 250 U/L (38-126); Blood Urea Nitrogen 33 mg/dl (7-17); Calcium 10.8 mg/dl (8.4-10.2); Carbon Dioxide 28 mmol/L (22-30); Chloride 98 mmol/L (98-107); Glucose 228 mg/dl (70-99); Potassium 3.7 mmol/L (3.5-5.1); Sodium 133 mmol/L (135-145); Total Bilirubin 0.8 mg/dl (0.2-1.3); Total Protein 6.7 g/dl (6.3-8.2)
[2024-06-06] MEDS: MAXIPIME 2000 MG IV (11:04)
[2024-06-06] MEDS: NSS 2200 ML IV (11:10)
[2024-06-06 11:15] LABS: Hematocrit 30.8 % (37.0-47.0); Hemoglobin 10.1 g/dL (12.0-16.0); Mean Corp Hgb Conc. 32.8 g/dL (33.0-37.0); Mean Corpuscular Volume 85.3 fL (81.0-99.0); Mean Platelet Volume 8.7 fL (7.4-10.4); Platelet Count 348 10^3/uL (130-400); Red Blood Cell Count 3.61 10^6/uL (4.20-5.40); Red Cell Dist. Width 17.2 % (11.5-14.5); White Blood Cell Count 92.4 10^3/uL (4.8-10.8)
[2024-06-06 11:34] LABS: % Immature Granulocytes 4.2 % (0-0.5); % Lymphocytes 1.3 % (20.5-51.1); % Monocytes 1.7 % (1.7-9.3); % Neutrophils 92.8 % (42.2-75.2); Absolute Immature Granulocytes 3.9 10^3/uL (0-0.05); Absolute Lymphocytes 1.2 10^3/uL (1.2-3.4); Absolute Monocytes 1.6 10^3/uL (0.1-0.6); Absolute Neutrophils 85.7 10^3/uL (1.4-6.5); Nucleated Red Blood Cells % 0 %
[2024-06-06] MEDS: GENTAMICIN 53.75 MG IV (11:53)
[2024-06-06 11:55] LABS: Lactic Acid 3.5 mmol/L (0.7-2.0)
--- NOTE | 2024-06-06 12:12 | HPS.HSE ---
Family Physician
-
Family Physician: Jose Fountain PA-C
Chief Complaint
-
Weakness
History of Present Illness
78 yo female here complaining of generalized weakness over the past few days. Associated falls at home. Lives at home with . Patient noticed no urine output from her nephrostomy bag since last weekend.
Recently admitted to for sepsis/UTI.
Has had a left nephrostomy in place since 03/19/24.
Was scheduled for left nephrectomy on 05/24, but procedure was canceled due to anemia (Hgb reportedly around 8).
She placed her Eliquis on hold for the surgery, and has not resumed it either.
She denies fevers, chills, flank pain.
Has had chronic lower extremity edema, left worse than right. Family states that the edema is improving compared to previous.
Medical History
Past Medical History
Past Medical History: Reports Other
Additional Past Medical History:
Left ureteral cancer
CAD
Stroke
Essential HTN
CKD 3b
DM2
Hyperlipidemia
Past Surgical History: Reports Orthopedic and Other
Additional Past Surgical History:
CABG
Left knee surgery
Cataracts
Left eye corneal transplant
Iliac stents
Social History
Tobacco: Former Smoker
Alcohol: None
Drug: None
Personal:
Living: With Family
Family History
Family History: Not pertinent
Allergies / Home Medications
Allergies reflects when Allergies were last updated in [facility].
Home Medications with original date entered in [facility]
Allergy/Medication List:
Allergies
Allergy/AdvReac Type Severity Reaction Status Date / Time
No Known Allergies Allergy Verified 06/06/24 10:27
Home Medications
carvedilol 12.5 mg tablet 12.5 mg PO BID Blood Pressure 03/17/11
cholecalciferol (vitamin D3) 50 mcg (2,000 unit) tablet 50 mcg PO DAILY Supplement 03/31/24
diphenhydramine 25 mg-acetaminophen 500 mg tablet (Tylenol PM Extra Strength) 1 tab PO HS PRN mild pain 03/31/24
insulin glargine 100 unit/mL (3 mL) subcutaneous pen (Lantus Solostar U-100 Insulin) 11 unit SC HS Diabetes 03/31/24
ferrous sulfate 325 mg (65 mg iron) tablet (FeroSul) 325 mg PO DAILY anemia #30 tabs 04/02/24
apixaban 5 mg tablet (Eliquis) 5 mg PO BID Blood Clot Prevention/Tx 05/15/24
atorvastatin 80 mg tablet 80 mg PO QPM High Cholesterol 05/15/24
cyanocobalamin (vitamin B-12) 1,000 mcg tablet 1,000 mcg PO DAILY Supplement 05/15/24
docusate sodium 100 mg capsule (Colace) 200 mg PO HSPRN PRN constipation 05/15/24
furosemide 20 mg tablet (Lasix) 20 mg PO DAILY Fluid Retention/Swelling 05/15/24
therapeutic multivitamin 1 tab PO DAILY Supplement 05/15/24
Review of Systems
-
History Source: Patient
A 12 point ROS was completed and negative except as noted: Yes
Physical Exam
Vital Signs
Vital Signs
Temp Pulse Resp BP Pulse Ox
96.8 F L 145 20 97/59 90
06/06/24 10:19 06/06/24 10:19 06/06/24 10:19 06/06/24 10:19 06/06/24 10:19
Physical Exam
General: Well Developed, Well Nourished, No Apparent Distress and Comfortable
HEENT: NormoCephalic, Anicteric and Moist mucous membranes
Respiratory: Clear
Cardiac: S1/S2 and Regular Rhythm
Breast: Deferred by me
GI: Soft, Non Tender and Non Distended
Genito-urinary: Deferred by me
Musculoskeletal: No Clubbing, No Cyanosis, Edema, Left Lower Extremity (Left lower extremity edema worse than right) and Edema, Right Lower Extremity
Skin: Warm and Dry
Neuro: AO x 3
Hematologic/Lymphatic: No Lymphadenopathy
Psych: Calm
Laboratory Results
-
06/06/24 10:32
06/06/24 10:32
Laboratory Results
Lactic Acid 3.5 mmol/L (0.7-2.0) H 06/06/24 10:32
Total Bilirubin 0.8 mg/dl (0.2-1.3) 06/06/24 10:32
AST 22 U/L (14-36) 06/06/24 10:32
ALT 18 U/L (0-35) 06/06/24 10:32
Alkaline Phosphatase 250 U/L (38-126) H 06/06/24 10:32
Impression/Plan
-
Septic shock -due to left pyelonephritis. Obstructed left nephrostomy tube. Admit to ICU. Consult [employer]. Check cultures. Broad-spectrum antibiotics.
Continue IV fluids. Significant leukocytosis noted. Lactic acidosis noted.
ABIOLA on CKD 3B -suspect ABIOLA related to the septic shock. Continue IV fluid support. Hold furosemide.
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 IR consulted.
Consult urology. Suspect she may need a nephrectomy sooner rather than later.
Bilateral lower extremity edema -left lower extremity worse than right. Previous venous Doppler ultrasound left lower extremity in April was negative. Will repeat.
Hyponatremia -133, monitor for now.
DM2 with hyperglycemia -at home, she is on Lantus 11 units at bedtime. Use low resistance NovoLog scale for now.
History of stroke
CAD/CABG -stable.
Essential hypertension -hold meds for hypotension.
Chronic normocytic anemia -hemoglobin at baseline.
Hyperlipidemia -on atorvastatin.
Bilateral adrenal adenomas
History of DVT -resume Eliquis if no plans for operative intervention.
Full code
Updated family at the bedside.
[2024-06-06 12:28] LABS: Urine Mucus Moderate
--- NOTE | 2024-06-06 12:28 | CON.INTV ---
Consultation
Consultation Request
Date/Time Consultation Requested: 06/06/2024 - 1203
Date/Time Consultation Performed: 06/06/2024 - 1225
Requesting Provider: Dr. Salmeron
Performing Provider: Dr. Robbins
Reason for Consultation: Sepsis, severe leukocytosis, UTI
Medical History
-
Chief Complaint: Multiple falls with generalized weakness
History of Present Illness:
78-year-old female former tobacco smoker ([id number] history) with PMHx of CKD 3, left ureteral cancer s/p nephrostomy placement (03/19/2024), DM type II, GERD, CAD s/p CABG x 3, hypertension/hyperlipidemia who presents with multiple falls and
generalized weakness. Patient lives at home with her who was unable to get her off the ground. Yesterday she noticed there has been no output from her left-sided nephrostomy bag which is not typical for her. Initial vitals in the ER
showed she was hypothermic to 96.8 �F, tachycardic to 145, breathing at 20 breaths minute, BP 97/59 and saturating 90% on room air. EKG showed a flutter with 2-1 A-V conduction. Labs showed severe leukocytosis with WBC 92.4, Hb 10.1, serum sodium
133, creatinine 1.7, glucose 228, lactate 3.5, ALP: 250, urinalysis showed cloudy yellow urine with 2+ leukocyte esterase and >100 urine WBC. Urine + blood cultures collected. CXR did not show any signs of pneumonia or pleural effusion, and there
was concern for mild interstitial edema. She was given IVF with 2.2 L of NS 0.9%, cefepime & gentamicin. Given her tachycardia with hypotension she was admitted to the ICU for further care and critical care services consulted for additional
management/recommendations.
When I saw the patient she was resting in bed on room air breathing comfortably saturating 93%. Heart rate 78 and BP 100/56. Bedside nurse turned the patient and found that the left nephrostomy tube was kinked, and after it was adjusted there was
flow of urine into the nephrostomy bag. Pt is awake, alert, answering questions appropriately, and in NAD. She denies chest pain, SOB, STEVENSON, abdominal pain, nausea, fevers or chills. She is currently on NS 0.9% at 80 cc/hr. Currently in NSR with
ocassional PACs.
Of note, patient had previously followed with us in the [facility] office in August [address] Carmen Means. Given her tobacco use history she had suspected COPD and was given a rescue inhaler to use prn. She also had cough with suspected reflux.
Smoking cessation was extensively discussed. She also admitted to snoring and risk factors were consistent with suspected sleep disordered breathing. Sleep study recommended but patient wanted to postpone further testing. PFT from August 2020
showed no obstructive lung defect with normal lung volumes and moderately reduced gas exchange capacity (DLco: 51%; DLco/VA: 56%).
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
PSHx: Left-sided nephrostomy placement (via IR on 03/19/2024), cystoscopy with left ureteroscopy and left ureteral tumor biopsy with tumor fulguration (03/22/2024), bilateral iliac stents, left corneal implant, CABG, left knee surgery, D&C
Past Medical History
Past Medical History: Other (Above as per HPI)
Past Surgical History: Other (Above as per HPI)
Social History
Tobacco: Smoker (Smokes 1-2 cigarettes a day; previously 1 PPD x 50 years)
Alcohol: None
Drug: None
Personal:
Living: With Family
Family History
Family History: CAD (Mother), Diabetes (Mother, paternal grandmother + maternal grandmother) and Other (Father: Cirrhosis; mother: History of stroke)
Allergies / Home Medications
Allergies
Allergy/AdvReac Type Severity Reaction Status Date / Time
No Known Allergies Allergy Verified 06/06/24 10:27
Home Medications
�Medication �Instructions �Recorded �Confirmed �Last Taken �Type
carvedilol 12.5 mg tablet 12.5 mg PO BID Blood Pressure 03/17/11 06/06/24 06/06/24 History
cholecalciferol (vitamin D3) 50 50 mcg PO DAILY Supplement 03/31/24 06/06/24 05/23/24 History
mcg (2,000 unit) tablet
diphenhydramine 25 1 tab PO HS PRN mild pain 03/31/24 06/06/24 05/13/24 History
mg-acetaminophen 500 mg tablet
(Tylenol PM Extra Strength)
insulin glargine 100 unit/mL (3 11 unit SC HS Diabetes 03/31/24 06/06/24 06/05/24 History
mL) subcutaneous pen (Lantus
Solostar U-100 Insulin)
ferrous sulfate 325 mg (65 mg 325 mg PO DAILY anemia #30 tabs 04/02/24 06/06/24 05/23/24 Rx
iron) tablet (FeroSul)
apixaban 5 mg tablet (Eliquis) 5 mg PO BID Blood Clot 05/15/24 06/06/24 05/23/24 History
Prevention/Tx
atorvastatin 80 mg tablet 80 mg PO QPM High Cholesterol 05/15/24 06/06/24 3 Days Ago History
~06/03/24
cyanocobalamin (vitamin B-12) 1,000 mcg PO DAILY Supplement 05/15/24 06/06/24 05/23/24 History
1,000 mcg tablet
docusate sodium 100 mg capsule 200 mg PO HSPRN PRN constipation 05/15/24 06/06/24 Unknown History
(Colace)
furosemide 20 mg tablet (Lasix) 20 mg PO DAILY Fluid 05/15/24 06/06/24 06/06/24 History
Retention/Swelling
therapeutic multivitamin 1 tab PO DAILY Supplement 05/15/24 06/06/24 05/23/24 History
Review of Systems
-
History Source: Patient
All other systems: Negative unless noted
Vitals / Labs / Diagnostic Testing
Vital Signs
Temp Pulse Resp BP Pulse Ox
96.8 F L 145 20 97/59 90
06/06/24 10:19 06/06/24 10:19 06/06/24 10:19 06/06/24 10:19 06/06/24 10:19
Lab Data
06/06/24 10:32
06/06/24 10:32
Diagnostic Testing:
Physical Exam
-
HEENT: Normocephalic and Anicteric
Cardiovascular: S1/S2 and Peripheral Edema (+2 left lower extremity pitting edema, +1 right lower extremity pitting edema)
Respiratory: Wheeze (negative), Rales (negative), Rhonchi (negative) and Non-Labored Respirations
GI: Soft, Non Distended, Non Tender and Normal Bowel Sounds
Neurology: Awake, Alert and Tremors (negative)
Skin: Warm and Dry
General: Respiratory Distress (negative), Comfortable, Chills (negative) and Sweats (negative)
Assessment
-
Assessment: 78-year-old F former tobacco smoker ([id number] history) with PMHx of CKD 3, left ureteral cancer s/p nephrostomy placement (03/19/2024), DM type II, GERD, CAD s/p CABG x 3, hypertension/hyperlipidemia who presents with multiple falls
and generalized weakness. She endorses no output from left-sided nephrostomy. She was hypothermic in the ER, tachycardic with atrial flutter with 2:1 AV conduction, with labs showing severe leukocytosis to 92.4, lactate 3.5 and glucose 228.
Urinalysis suspicious for UTI. She was given 2.2 L of crystalloids in the ER with NS 0.9%, cefepime + gentamicin. Given her tachycardia and hypotension she was admitted to the ICU for further care with critical care services consulted for
additional management/recommendations.
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
Impression:
#Complicated UTI
#Tachyarrhythmia due to atrial flutter with 2: 1 AV conduction --> now back in NSR with PACs/PVCs
#Sepsis without shock due to above
#Severe leukocytosis likely due to sepsis due to above
#Lactic acidosis likely due to sepsis due to UTI
#Hyponatremia
#Anemia (baseline Hb 9.5 - 10.5g/dL)
#CKD (baseline Cr 1.4�1.7)
#DM type II c/b hyperglycemia
#Left-sided ureteral cancer (low-grade papillary urothelial carcinoma, noninvasive � diagnosed via left ureteral mass biopsy on 04/09) s/p left-sided nephrostomy
#History of UTI due to E. coli + Klebsiella pneumonia
#Former tobacco use disorder (85-[id number] history); no evidence of COPD via PFT from 08/2020
Plan:
- Continue ABx - currently on Zosyn s/p cefepime/gentamicin in ER
- Follow up urine Cx
- Trend lactate until <2mmol/L
- IR consulted for left nephrostomy tube check given no output since yesterday --> tube was kinked, and was adjusted in ICU by bedside RN, and now urine is flowing into the bag
- She already received 2L of crystalloids in ER
- Continue gentle hydration
- If rhythm goes back into A-flutter or if PACs/PVCs become more frequent, then consult cardiology
- Replete electrolytes with K>4, Mg>2
- Trend serum Na with goal 135-145
- Trend WBC
- Trend Hb and transfuse if needed to keep >7g/dL
- Maintain SpO2 >90-94%
- Maintain MAP>65
- Fall precautions
- PT/OT
- She denies LOC or head trauma today or recently; says she 'slipped' down to the floor and did not actually fall
- Maintain euglycemia with goal BG 140-180; ISS + lantus
- prn nebulized bronchodilators - not currently bronchospastic
- Incentive spirometer encouraged
- DVT ppx: resume Eliquis
- Given her tobacco smoking history, she does qualify for lung cancer screening via LDCT chest. She does have left-sided ureteral cancer, however this is not invasive and I do not believe that this would preclude her from obtaining annual LDCT
chest imaging. I will arrange for outpatient pulmonary office follow-up to discuss this.
Critical care statement: A total of 40 minutes of critical care time was provided for this patient today. This includes management of unstable vital signs, evaluation of the patient at bedside, reviewing the patient's pertinent medical records
including radiographs, microbiology, laboratory evaluations, and discussion with primary team, consultants, pharmacy, nutrition, physical therapy, case management, charge nurse, critical care nursing, and respiratory therapy.
Data:
CXR 06/06/2024: Prominent vascular markings suspicious for mild interstitial edema.
[2024-06-06 12:30] LABS: Urine Urothelial Cell 16-20 /LPF (FEW)
[2024-06-06 12:31] LABS: Urine White Cell >100 /HPF (0-5); Urine Yeast Many (Negative)
--- NOTE | 2024-06-06 14:00 | PTCARENOTE ---
Rec'd pt at 1330 via stretcher from the ED. Rec'd pt awake alert and oriented. Speech is clear. Denies headache or dizziness. Denies pain currently but does admit that at times her legs- especially her L leg can hurt her. Skin is very dry and
crusted at spots. Sacrum/buttocks are reddened/purplish with MASD- Foam dressing applied. L knee with 3 small abraised areas with scab formation. No drainage. L flank where clip from nephrostomy tube was sitting pt has a stage 2 wound 1.5 cm x .5
cm- pink wound bed. Cleansed and foam dressing applied. Respirs are shallow but non-labored on RA with sats of 94-96%. Bs in general are decreased. Coughing an intermittent moist non-prod cough. Monitor SR. VS as documented. + pulses. PT and DP
pulses with the doppler. +3LLE edema +1-2 RLE pitting edema. Pt states she has chronic Lympedema of the L leg. Denies chest pain. Abd is round and soft with hypoactive BS. Denies nausea. Purewick placed as pt states she can be incontinent especially
when she coughs. L nephrostomy tube found kinked at 2 placed- once unkinked began drainaing cloudy yellow urine. Site cleansed -sl pink around insertion site. Drain secured to prevent kinking and drain/gauge dressings to protect the clip injuring
the skin. NSS hung at 80 ml/hr via L hand IV site. Pt repositioned. Skin care given. Call baig in reach. Plan of care reviewed with pt.
[2024-06-06] MEDS: NSS 1000 IV (14:06)
--- NOTE | 2024-06-06 14:40 | PTCARENOTE ---
Labs sent as ordered. Pt resting when not disturbed. L nephrostomy tube draining cloudy yellow urine.
[2024-06-06 15:07] LABS: APTT 28.5 Sec (23.4-35.0); INR 1.16; PT 14.9 Sec (11.4-14.6)
[2024-06-06 15:15] LABS: Lactic Acid 1.8 mmol/L (0.7-2.0)
--- NOTE | 2024-06-06 15:17 | CON.MD ---
Addendum entered and electronically signed by Dedrick Camargo MD 06/06/24 15:33:
Dictated consult to follow
Original Note:
Consultation - Medical
-
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
Noted to have falls at home.
Patient noted no UOP per left PCN since last weekend.
Recent admission to for urosepsis.
Left PCN placed 03/19/24.
Was tentatively scheduled for robotic left nephroureterectomy 05/24 - procedure cancelled due to anemia.
Eliquis held since her initially scheduled surgery on 05/24.
Denies F/C/N/V.
WBC 92.4
Cr 1.7 (1.3 last admission)
UA >100 WBCs, +RBCs, many yeast
UCx pending
BCx pending
Recent discussion had b/w Dr. Singh and patient/family regarding high-risk nature of surgery for locally advanced left UTUC w/ evidence of lymphadenopathy.
Surgical intervention would be palliative and likely not curative intent given extent of her disease.
Currently full code w/ plans for surgical intervention despite recent functional deterioration and medical co-morbidities.
Plan:
- IR consult for left PCN exchange
- Broad-spectrum IV abx pending UCx/BCx S/S
- No indication for urgent uro-surgical intervention
- Surgical planning will be revisited w/ family after confirmation of GOC
- D/w Dr. Singh
D/w Hospitalist.
[2024-06-06 15:29] LABS: Magnesium 1.6 mg/dl (1.6-2.3); Phosphorus 3.8 mg/dl (2.5-4.5)
[2024-06-06] MEDS: TYLENOL 650 MG PO (15:49)
--- NOTE | 2024-06-06 15:50 | PTCARENOTE ---
Taken to CT Scan via bed. Prior to leaving medicated with Tylenol 650 mg po for per pt 9/10 L upper leg pain which she said is somewhat chronic. Only wanted Tylenol. No other changes
--- NOTE | 2024-06-06 15:50 | PTCARENOTE ---
Pt ready to go to CT scan and then IR. C/O chronic L upper leg soreness/achiness. Rates it a 06/26 but just wants Tylenol for it. Tylenol 650 mg po given. Pt repostioned then taken to CT scan. No other changes. L nephrostomy tube continues to drain
cloudy yellow urine.
--- NOTE | 2024-06-06 16:50 | CON.IR ---
Medical History
Allergies / Home Medications
Allergy/AdvReac Type Severity Reaction Status Date / Time
No Known Allergies Allergy Verified 06/06/24 10:27
�Medication �Instructions �Recorded �Confirmed �Type
carvedilol 12.5 mg tablet 12.5 mg PO BID Blood Pressure 03/17/11 06/06/24 History
cholecalciferol (vitamin D3) 50 50 mcg PO DAILY Supplement 03/31/24 06/06/24 History
mcg (2,000 unit) tablet
diphenhydramine 25 1 tab PO HS PRN mild pain 03/31/24 06/06/24 History
mg-acetaminophen 500 mg tablet
(Tylenol PM Extra Strength)
insulin glargine 100 unit/mL (3 11 unit SC HS Diabetes 03/31/24 06/06/24 History
mL) subcutaneous pen (Lantus
Solostar U-100 Insulin)
ferrous sulfate 325 mg (65 mg 325 mg PO DAILY anemia #30 tabs 04/02/24 06/06/24 Rx
iron) tablet (FeroSul)
apixaban 5 mg tablet (Eliquis) 5 mg PO BID Blood Clot 05/15/24 06/06/24 History
Prevention/Tx
atorvastatin 80 mg tablet 80 mg PO QPM High Cholesterol 05/15/24 06/06/24 History
cyanocobalamin (vitamin B-12) 1,000 mcg PO DAILY Supplement 05/15/24 06/06/24 History
1,000 mcg tablet
docusate sodium 100 mg capsule 200 mg PO HSPRN PRN constipation 05/15/24 06/06/24 History
(Colace)
furosemide 20 mg tablet (Lasix) 20 mg PO DAILY Fluid 05/15/24 06/06/24 History
Retention/Swelling
therapeutic multivitamin 1 tab PO DAILY Supplement 05/15/24 06/06/24 History
Physical Exam
Vital Signs
Temp Pulse Resp BP Pulse Ox
96.8 F L 77 19 96/50 97
06/06/24 10:19 06/06/24 16:30 06/06/24 16:30 06/06/24 16:30 06/06/24 16:15
Lab Results
06/06/24 10:32
06/06/24 10:32
Assessment / Plan
-
Clinical history and CT reviewed. PCN apparently noted to be kinked prior to CT acquisition, and following resolution of kinking, PCN put out approximately [address] shows satisfactory position of PCN without hydro. As such, no indication
for PCN exchange at this time. Will sign off. Patient can return to IR for routine PCN exchange 8-12 weeks following initial placement.
--- NOTE | 2024-06-06 17:15 | PTCARENOTE ---
Returned from CT scan then IR. L nephrostomy tube not changed. In IR Did place new bag on tube and secured tube. Repositioned. Skin care given. VS as documented. Will order dinner. Skin and mouth care given.
[2024-06-06] MEDS: NOVOLOG FLEXPEN-LOW RESISTANCE 1 UNITS SC (17:59)
[2024-06-06] MEDS: LIPITOR 80 MG PO (17:59)
[2024-06-06] MEDS: ZOSYN 50 IV (18:00)
[2024-06-06 18:08] LABS: Glucose - Point of Care 166 mg/dl (70-99)
--- NOTE | 2024-06-06 18:30 | PTCARENOTE ---
Good appetite for dinner . Denies nausea. IV fluids infusing as ordered. L nephrostomy tube with scant amt of yellow cloudy urine. No other changes
--- NOTE | 2024-06-06 20:00 | PTCARENOTE ---
Received patient AAOx3, following commands, reporting pain in left leg at acceptable level. Normal sinus 70s-90s, occasional PVCs and PACs. BP stable, sometimes soft, 80s-100s/50s-60s. +3 LLE edema, +1 RLE edema. Afebrile, doppler PT and DP pulses
bilaterally, palpable radial pulses bilaterally. 93% on room air, lung sounds diminished. Moist, nonproductive cough. Abdomen soft, round, hypoactive bowel sounds. Purewick in place, left nephrostomy tube draining yellow cloudy urine. MASD on butt,
foam in place. Foam on left side, stage 2. Abrasion on left knee. NSS gtt ongoing per order, IV patent, WNL. Repositioned, mouth care done. Able to make needs known, call baig within reach.
[2024-06-06] MEDS: ELIQUIS 5 MG PO (20:07)
[2024-06-06] MEDS: LR 250 IV (21:52)
[2024-06-06] MEDS: LANTUS 0.11 UNITS SC (21:56)
[2024-06-06 22:07] LABS: Glucose - Point of Care 244 mg/dl (70-99)
[2024-06-07] VITALS (53 sets, daily range): BP systolic 82–133; BP diastolic 38–99; BMI 28.6
--- NOTE | 2024-06-07 00:13 | PTCARENOTE ---
BP consistently 80s/40s-50s, [employer]SUITE DEVELOPER notified. 250 ml LR bolus given, BP improved. Otherwise patient assessment unchanged from previous, call baig within reach.
[2024-06-07] MEDS: ZOSYN 50 IV ×4 (00:57→17:18)
[2024-06-07] MEDS: NSS 1000 IV (05:04)
--- NOTE | 2024-06-07 05:08 | PTCARENOTE ---
Patient only put out 150 ml via purewick and 50 ml via nephrostomy tube, bladder scanned for 249 mls. Otherwise patient assessment unchanged from previous.
[2024-06-07 05:58] LABS: Blood Urea Nitrogen 31 mg/dl (7-17); Calcium 9.9 mg/dl (8.4-10.2); Carbon Dioxide 24 mmol/L (22-30); Chloride 104 mmol/L (98-107); Estimated Creatinine Clearance 31 ml/min; Glucose 137 mg/dl (70-99); Potassium 3.8 mmol/L (3.5-5.1); Sodium 137 mmol/L (135-145); eGFR 35.67
[2024-06-07 06:04] LABS: Hematocrit 26.7 % (37.0-47.0); Hemoglobin 8.8 g/dL (12.0-16.0); Mean Corpuscular Hgb 27.9 pg (27.0-31.0); Mean Corpuscular Volume 84.8 fL (81.0-99.0); Mean Platelet Volume 8.7 fL (7.4-10.4); Platelet Count 284 10^3/uL (130-400); Red Blood Cell Count 3.15 10^6/uL (4.20-5.40); Red Cell Dist. Width 17.2 % (11.5-14.5); White Blood Cell Count 76.7 10^3/uL (4.8-10.8)
[2024-06-07] MEDS: TYLENOL 650 MG PO ×3 (06:18→20:44)
[2024-06-07 06:43] LABS: % Eosinophils 0.3 % (0-6); % Immature Granulocytes 3.6 % (0-0.5); % Lymphocytes 1.7 % (20.5-51.1); % Monocytes 1.8 % (1.7-9.3); % Neutrophils 92.6 % (42.2-75.2); Absolute Eosinophils 0.2 10^3/uL (0-0.7); Absolute Immature Granulocytes 2.8 10^3/uL (0-0.05); Absolute Lymphocytes 1.3 10^3/uL (1.2-3.4); Absolute Monocytes 1.4 10^3/uL (0.1-0.6); Nucleated Red Blood Cells % 0 %
[2024-06-07] MEDS: LEVOPHED 250 IV (07:14)
[2024-06-07 07:47] LABS: Glucose - Point of Care 152 mg/dl (70-99)
--- NOTE | 2024-06-07 07:51 | W.PN.HOSP.TC ---
Addendum entered and electronically signed by Juan M Salmeron DO 06/07/24 16:40:
I spoke with Dr. Singh. He recommends hospice, as he feels that Roxanne is not a surgical candidate. Patient receptive to hospice, according to Dr. Singh. Will assess tomorrow.
I updated family (sister Nasima) on the phone regarding plans for hospice on discharge.
Plan to get Roxanne to SNF with hospice when stable for discharge.
Addendum entered and electronically signed by Juan M Salmeron, 06/07/24 14:27:
Acute pyelonephritis
Original Note:
Today's Communication/Plan
-
Await cultures
Continue antibiotics
Levophed
Urology to discuss goals of care
Lower extremity venous Doppler ultrasound
Assessment / Plan
Assessment / Plan
Gen-AAOx3, NAD
HEENT-NC, AT, anicteric, clear oral mm
Neck-supple
CV-reg, no M, +S1/S2
Lungs-clear B/L
Abd-soft, NT, ND
Ext-no edema
Musculoskeletal-no cyanosis, clubbing
Skin-warm and dry
Neuro-grossly non-focal
Psych-calm, cooperative
Septic shock -due to left pyelonephritis. CT scan done on 06/06 shows intact left percutaneous nephrostomy tube in lower renal pelvis without hydronephrosis. IR did not perform PCN exchange as tube is in proper position with output. They recommend
routine exchange in 8 to 12 weeks following initial placement.
Levophed initiated this morning. Awaiting cultures. Continue empiric Zosyn for now. Monitor in ICU. WBCs trending down.
ABIOLA on CKD 3B -suspect ABIOLA related to the septic shock. Continue IV fluid support. Hold furosemide. Creatinine trending down, 1.5.
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 IR consulted. Dr. Singh of urology to speak with family today regarding goals of care in terms of cancer treatment. Appears to be high risk for surgical
intervention including nephrectomy. If family opts for conservative treatment then would consider hospice.
Bilateral lower extremity edema -left lower extremity worse than right. Previous venous Doppler ultrasound left lower extremity in April was negative. Will repeat.
Hyponatremia - improved.
DM2 with hyperglycemia -at home, she is on Lantus 11 units at bedtime. Use low resistance NovoLog scale for now. Glucose 137 this morning.
History of stroke
CAD/CABG -stable.
Essential hypertension -hold meds for hypotension.
Chronic normocytic anemia -hemoglobin at baseline. Monitor for now.
Hyperlipidemia -on atorvastatin.
Bilateral adrenal adenomas
History of DVT -continue Eliquis. Of note patient had been off of Eliquis for 1 to 2 weeks prior to admission as she had stopped it in plans for potential urologic surgery.
Full code
Anticipated Discharge: > 48 hours
Subjective/Interval History
-
Date of Service: June 07, 2024
Patient seen and examined. Complaining of lower extremity swelling, left calf pain.
Objective Data
-
Labs:
Laboratory Results
06/07/24
05:21
WBC 76.7 H*
Hgb 8.8 L
Hct 26.7 L
Plt Count 284
Sodium 137
Potassium 3.8
Chloride 104
Carbon Dioxide 24
BUN 31 H
Creatinine 1.5 H
Glucose 137 H
Calcium 9.9
Vital Signs:
Vital Signs
Temp Pulse Resp BP Pulse Ox
97.4 F 71 15 102/52 92
06/07/24 07:46 06/07/24 06:00 06/07/24 06:00 06/07/24 06:00 06/07/24 05:30
I&O
06/06/24 06/07/24 06/08/24
06:59 06:59 06:59
Intake Total 1929 / 2016.5 87.5 / 87.5
Output Total 490 / 490
Balance 1440 / 1527.5 87..5
Review of Systems
-
History Source: Patient
All other systems: Reviewed and negative
[2024-06-07] MEDS: NOVOLOG FLEXPEN-LOW RESISTANCE 1 UNITS SC (08:22)
[2024-06-07] MEDS: ELIQUIS 5 MG PO (08:23)
--- NOTE | 2024-06-07 08:33 | W.PN.INTV ---
Today's Communication / Plan
Recommendations
Continue Levophed and titrate to keep MAP >65
Hold home Lasix given hypotension
Follow-up urine culture
Continue with antibiotic
Trend WBC
Replete K>4, Mg>2
Monitor PACs/PVCs
Continue ICU level of care
Assessment
-
Assessment: 78-year-old F former tobacco smoker (74-selv-eyjc history) with PMHx of CKD 3, left ureteral cancer s/p nephrostomy placement (03/19/2024), DM type II, GERD, CAD s/p CABG x 3, hypertension/hyperlipidemia who presents with multiple falls
and generalized weakness. She endorses no output from left-sided nephrostomy. She was hypothermic in the ER, tachycardic with atrial flutter with 2:1 AV conduction, with labs showing severe leukocytosis to 92.4, lactate 3.5 and glucose 228.
Urinalysis suspicious for UTI. She was given 2.2 L of crystalloids in the ER with NS 0.9%, cefepime + gentamicin. Given her tachycardia and hypotension she was admitted to the ICU for further care with critical care services consulted for
additional management/recommendations.
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
Impression:
#Complicated UTI
#Tachyarrhythmia due to atrial flutter with 2: 1 AV conduction --> now back in NSR with PACs/PVCs
#Septic shock
#Severe leukocytosis likely due to sepsis due to above
#Lactic acidosis likely due to sepsis due to UTI - lactate normalized this AM
#Hyponatremia
#Anemia (baseline Hb 9.5 - 10.5g/dL)
#CKD (baseline Cr 1.4�1.7)
#DM type II c/b hyperglycemia
#Left-sided ureteral cancer (low-grade papillary urothelial carcinoma, noninvasive � diagnosed via left ureteral mass biopsy on 04/09) s/p left-sided nephrostomy
#History of UTI due to E. coli + Klebsiella pneumonia
#Former tobacco use disorder (66-lcgd-xzxm history); no evidence of COPD via PFT from 08/2020
Plan:
- Continue ABx - currently on Zosyn s/p cefepime/gentamicin in ER
- Follow up urine Cx
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
- She already received 2L of crystalloids in ER
- Continue gentle hydration
- If rhythm goes back into A-flutter or if PACs/PVCs become more frequent, then consult cardiology
- Replete electrolytes with K>4, Mg>2
- Trend serum Na with goal 135-145
- Trend WBC
- Trend Hb and transfuse if needed to keep >7g/dL
- Maintain SpO2 >90-94%
- Maintain MAP>65
- Fall precautions
- PT/OT
- She denies LOC or head trauma today or recently; says she 'slipped' down to the floor and did not actually fall
- Maintain euglycemia with goal BG 140-180; ISS + lantus
- prn nebulized bronchodilators - not currently bronchospastic
- Incentive spirometer encouraged
- DVT ppx: resume Eliquis
- Given her tobacco smoking history, she does qualify for lung cancer screening via LDCT chest. She does have left-sided ureteral cancer, however this is not invasive and I do not believe that this would preclude her from obtaining annual LDCT
chest imaging. I will arrange for outpatient pulmonary office follow-up to discuss this.
GOC discussion warranted for her left sided ureteral cancer as she is too ill to have left sided nephrectomy.
Critical care statement: A total of 38 minutes of critical care time was provided for this patient today. This includes management of unstable vital signs, evaluation of the patient at bedside, reviewing the patient's pertinent medical records
including radiographs, microbiology, laboratory evaluations, and discussion with primary team, consultants, pharmacy, nutrition, physical therapy, case management, charge nurse, critical care nursing, and respiratory therapy.
Data:
CXR 06/06/2024: Prominent vascular markings suspicious for mild interstitial edema.
CT abd/pelvis without contrast 06/06/2024:
1. There is a large left pelvic/adnexal confluent soft tissue mass measuring up to 8.5 x 7.9 x 8.2 cm, markedly progressed from priors consistent with progression of disease (likely confluent combination of primary ureteral and metastatic regional
lymphadenopathy).
2. Left percutaneous nephrostomy tube noted with pigtail in position within the lower renal pelvis. No hydronephrosis.
Subjective Dataa
Subjective Data
Date of Service:
Date of Service: June 07, 2024
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
Subjective:
Patient seen and evaluated today at bedside. Patient's sister, Tony, at bedside � all questions were answered. Levophed started this morning, currently on 2mcg/min after SBP was in 70-80s. BP currently 122/97. HR 69, on RA saturating 91%. She
endorses lower extremity pain, denies CP, SOB, headache, abdominal pain, fevers or chills.
Review of Systems
General: Other (Negative unless mentioned above)
Objective Data
Data Reviewed
Vital Signs / I&O / Oxygen:
Vital Signs
Temp Pulse Resp BP Pulse Ox
97.4 F 76 19 122/97 94
06/07/24 07:46 06/07/24 08:31 06/07/24 08:31 06/07/24 08:31 06/07/24 08:15
Intake and Output
06/06/24 06/07/24 06/08/24
06:59 06:59 06:59
Intake Total 1930 / 2017.5 382.5 / 382.5
Output Total 490 / 490
Balance 1440 / 1527.5 382.5 / 382.5
SaO2 94
Physical Exam
General: Respiratory Distress (negative) and Comfortable
HEENT: Normocephalic and Anicteric
Cardiovascular: S1-S2 and Peripheral Edema (+2 pitting left lower extremity edema; no edema in right lower extremity)
Respiratory: Wheeze (negative), Crackles (Posterior right midlung), Rhonchi (negative) and Non-Labored Respirations
GI: Soft, Non Distended, Non Tender and Normal Bowel Sounds
Neurology: Awake, Alert and Tremors (negative)
Skin: Warm, Dry, Cyanosis (negative) and Jaundice (negative)
Labs/Micro/Reports
Lab Data
06/07/24 05:21
06/07/24 05:21
Laboratory Results
06/06/24
14:45
PT 14.9 H
INR 1.16
APTT 28.5
--- NOTE | 2024-06-07 08:33 | PTCARENOTE ---
report received, assessments per work list. patient alert and oriented. monitor nsr with pavc,pac. levophed per work list. lungs with basilar crackles, purewick in place, voiding yellow urine. left nephrostomy tube draining yellow urine. abdomen
soft, hyperactive bowel sounds. dressing intact to sacrum. call baig in reach
--- NOTE | 2024-06-07 10:37 | CM ---
Patient seen at bedside. Patient recently at and discharged home with [facility]. Patient states that she thinks she cancelled the VN and that she stays on the first floor in a recliner but has been having several falls recently. Patient stated her PCP
is Dr. Fountain and that she uses the [facility] in [place]. Patient stated that she is planing to make her brother her POA but currently only has living will, patient indicated she thought the hospital had a copy of it. CM provided information about POA
and forms. Patient plans to review with her brother when he comes to visit. Patient stated that her sister works at [employer] and that she is now in agreement to go to the SNF when medically cleared. CM will send referral to [facility]
as requested. Patient also states that the physicians and her brother/ are to talk to about 'surgery' and if she is able to have it. Patient stated that her preference right now, would like to have the surgery. CM will continue to follow for
discharge planning needs.
Plan; SNF placement; will need auth when medically appropriate and pending bed availability/acceptance.
[2024-06-07] MEDS: NOVOLOG FLEXPEN-LOW RESISTANCE 2 UNITS SC ×2 (12:00→17:25)
[2024-06-07 12:11] LABS: Glucose - Point of Care 203 mg/dl (70-99)
--- NOTE | 2024-06-07 12:50 | PTCARENOTE ---
Pt. hygiene performed, Levo gtt titrated down to per work order. All systems assessed, will continue to monitor. Call baig within reach.
--- NOTE | 2024-06-07 14:16 | PN.CDI ---
CDI
- -
CDI:
Physician Documentation Request
Admit Date: 06/06/24 12:21
Dear Doctor Jaron,
Patient is admitted with Septic shock -due to left pyelonephritis
Please clarify which of the following accurately represents the acuity of the pyelonephritis
____ Acute
Acute on Chronic
Chronic
____ Other
Use of terms such as suspected, likely, concern for, or probable (associated with a specific diagnosis that is being evaluated, monitored, or treated as if it exists) are acceptable and can be coded in the inpatient setting, when documented at the
time of discharge.
Thank you,
Flaquita Andrea RN, BSN
CDI Specialist
tiger text
Please use your independent medical judgment in providing your response.
[2024-06-07] MEDS: DILAUDID 0.25 MG IV (15:16)
[2024-06-07] MEDS: DIFLUCAN 200 MG 100 IV (16:07)
--- NOTE | 2024-06-07 16:21 | PTCARENOTE ---
Pt given one time dose of Dilaudid which helped relieve much of her pain in the LLE. Telecasting Engineer made aware of US results which revealed DVT's in both legs. Levo gtt remains off. All systems reassessed. Hygiene performed. Call baig at bedside.
--- NOTE | 2024-06-07 16:37 | W.PN.URO.CBU ---
Today's Communication / Plan
-
Hospice consult
Maintain nephrostomy tube
Assessment / Plan
-
78F with locally metastatic ureteral urothelial carcinoma
Obstructed L kidney s/p nephrostomy tube
Admitted with sepsis and poorly draining nephrostomy
- CT on admission shows rapid progression of tumor burden since prior imaging, suggesting very aggressive disease
- Based on current imaging, the tumor is not resectable and surgery would be unlikely to provide a palliative benefit given the speed of disease progression
- With patient's poor functional and performance status with significant medical comorbidity, I recommended palliative care and hospice. Had a long discussion with patient and her brother who were in agreement with this course.
- Maintain nephrostomy tube at discharge for palliative benefit
Diagnosis
-
Date of Service: June 07, 2024
-
Patient Diagnosis:
Pelvic mass
Ureteral carcinoma
Sepsis
L renal obstruction
Post Op Day:
Objective
-
Vital Signs
Temp Pulse Resp BP Pulse Ox
97.6 F 75 23 104/57 96
06/07/24 11:42 06/07/24 16:06 06/07/24 16:06 06/07/24 16:06 06/07/24 14:48
Intake and Output
06/06/24 06/07/24 06/08/24
06:59 06:59 06:59
Intake Total 193 / 2016.5 1128.8 / 1128.8
Output Total 490 / 490 425 / 425
Balance 1440 / 1527.5 703.8 / 703.8
Intake:
Oral fluids 300 / 300 240 / 240
IV fluids (Total) 1280 / 1367.5 688.8 / 688.8
Nss 1,000 ml @ 80 mls/hr IV . 1280 / 1360 640 / 640
[id number] [facility]#:[id number]
Zosyn 0 / 0
levo 48.8 / 48.8
IV piggybacks 350 / 350 200 / 200
Output:
Urinary Drain Output (Total) 240 / 240 125 / 125
Left Nephrostomy 240 / 240 125 / 125
Urine, Voided 250 / 250 300 / 300
Laboratory Results
06/07/24 05:21
06/07/24 05:21
Physical Exam
-
General - well developed, well nourished, no acute distress
Abdomen - soft, non-tender
[2024-06-07] MEDS: LIPITOR 80 MG PO (17:18)
[2024-06-07 17:33] LABS: Glucose - Point of Care 228 mg/dl (70-99)
[2024-06-07] MEDS: ELIQUIS 10 MG PO (20:05)
[2024-06-07] MEDS: LANTUS 0.11 UNITS SC (21:46)
[2024-06-07 22:03] LABS: Glucose - Point of Care 230 mg/dl (70-99)
[2024-06-08] VITALS (17 sets, daily range): BP systolic 83–123; BP diastolic 43–76; BMI 28.6
[2024-06-08] MEDS: ZOSYN 50 IV ×2 (02:36→06:21)
[2024-06-08 04:23] LABS: Blood Urea Nitrogen 28 mg/dl (7-17); Calcium 10.1 mg/dl (8.4-10.2); Carbon Dioxide 26 mmol/L (22-30); Chloride 105 mmol/L (98-107); Estimated Creatinine Clearance 31 ml/min; Glucose 115 mg/dl (70-99); Potassium 3.5 mmol/L (3.5-5.1); Sodium 138 mmol/L (135-145); eGFR 35.67
[2024-06-08 04:48] LABS: Hematocrit 29.4 % (37.0-47.0); Hemoglobin 9.5 g/dL (12.0-16.0); Mean Corp Hgb Conc. 32.3 g/dL (33.0-37.0); Mean Corpuscular Hgb 28.3 pg (27.0-31.0); Mean Corpuscular Volume 87.5 fL (81.0-99.0); Mean Platelet Volume 8.7 fL (7.4-10.4); Platelet Count 346 10^3/uL (130-400); Red Blood Cell Count 3.36 10^6/uL (4.20-5.40); Red Cell Dist. Width 17.2 % (11.5-14.5); White Blood Cell Count 81.9 10^3/uL (4.8-10.8)
[2024-06-08] MEDS: TYLENOL 650 MG PO ×2 (06:17→15:17)
[2024-06-08] MEDS: KCL 270 MEQ IV (06:22)
--- NOTE | 2024-06-08 06:57 | PTCARENOTE ---
pt washed up this am. tylenol given for bilateral leg pain
[2024-06-08 07:04] LABS: % Eosinophils 0.4 % (0-6); % Immature Granulocytes 3.7 % (0-0.5); % Lymphocytes 1.8 % (20.5-51.1); % Monocytes 1.7 % (1.7-9.3); % Neutrophils 92.4 % (42.2-75.2); Absolute Eosinophils 0.3 10^3/uL (0-0.7); Absolute Lymphocytes 1.5 10^3/uL (1.2-3.4); Absolute Monocytes 1.4 10^3/uL (0.1-0.6); Absolute Neutrophils 75.7 10^3/uL (1.4-6.5); Nucleated Red Blood Cells % 0 %
[2024-06-08 07:36] LABS: Glucose - Point of Care 117 mg/dl (70-99)
--- NOTE | 2024-06-08 07:38 | W.PN.HOSP.TC ---
Addendum entered and electronically signed by Juan M Salmeron DO 06/08/24 14:21:
Suspect baseline creatinine is 1.3, patient presented with creatinine of 1.7. Therefore this qualifies as ABIOLA on CKD 3B.
Original Note:
Today's Communication/Plan
-
Discharge planning
Assessment / Plan
Assessment / Plan
Gen-AAOx3, NAD
HEENT-NC, AT, anicteric, clear oral mm
Neck-supple
CV-reg, no M, +S1/S2
Lungs-clear B/L
Abd-soft, NT, ND
Ext-no edema
Musculoskeletal-no cyanosis, clubbing
Skin-warm and dry
Neuro-grossly non-focal
Psych-calm, cooperative
Septic shock -due to acute left pyelonephritis likely due to underlying urothelial cancer. CT scan done on 06/06 shows intact left percutaneous nephrostomy tube in lower renal pelvis without hydronephrosis. IR did not perform PCN exchange as tube
is in proper position with output. They recommend routine exchange in 8 to 12 weeks following initial placement.
Shock resolved. Off vasopressors. Blood cultures negative. Urine culture shows yeast, suspect contamination. Marked leukocytosis noted, likely largely driven by her urothelial cancer that has progressed.
ABIOLA on CKD 3B -suspect ABIOLA related to the septic shock. Creatinine stabilized at 1.5.
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 CT scan demonstrates large left pelvic/adnexal soft tissue mass, measuring 8.5 x 7.9 x 8.2 cm. Markedly progressed from prior scans. No hydronephrosis.
Acute left lower extremity DVT -extensive and occlusive on Doppler ultrasound involving the saphenofemoral junction through the calf veins suspected to be secondary to external compression from the underlying left pelvic mass.
Acute occlusive DVT involving the proximal right peroneal vein. She is already on Eliquis. Given plans to move forward with hospice, recommend stopping anticoagulation on discharge.
Hyponatremia - improved.
DM2 with hyperglycemia -at home, she is on Lantus 11 units at bedtime. Use low resistance NovoLog scale for now. Glucose 115 this morning.
History of stroke
CAD/CABG -stable.
Essential hypertension -hold meds for hypotension.
Chronic normocytic anemia -hemoglobin at baseline. Monitor for now.
Hyperlipidemia -on atorvastatin.
Bilateral adrenal adenomas
History of DVT -continue Eliquis. Of note patient had been off of Eliquis for 1 to 2 weeks prior to admission as she had stopped it in plans for potential urologic surgery.
DNR -discussed with patient today regarding goals of care and plans for hospice. She is in agreement with hospice and DNR.
Dispo -medically stable for discharge to intermediate on hospice services. Will discuss with case management. Updated family on the phone last night. They are in agreement with hospice. Goal will be to minimize discharge medications given plans
for hospice. Patient in agreement.
End-of-life care discussion with patient constitutes high risk encounter.
Anticipated Discharge: Within 24 hours
Subjective/Interval History
-
Date of Service: June 08, 2024
Patient seen and examined. Complaining of some left leg pain.
Objective Data
-
Labs:
Laboratory Results
06/08/24
03:51
WBC 81.9 H*
Hgb 9.5 L
Hct 29.4 L
Plt Count 346 D
Sodium 138
Potassium 3.5
Chloride 105
Carbon Dioxide 26
BUN 28 H
Creatinine 1.5 H
Glucose 115 H
Calcium 10.1
Vital Signs:
Vital Signs
Temp Pulse Resp BP Pulse Ox
98.6 F 82 25 111/59 91
06/08/24 03:14 06/08/24 06:19 06/08/24 06:19 06/08/24 06:19 06/08/24 06:19
I&O
06/07/24 06/08/24 06/09/24
06:59 06:59 06:59
Intake Total 193 / 2016.5 1178.8 / 1178.8
Output Total 490 / 490 725 / 725
Balance 1440 / 1527.5 453.8 / 453.8
Review of Systems
-
History Source: Patient
All other systems: Reviewed and negative
[2024-06-08] MEDS: NOVOLOG FLEXPEN-LOW RESISTANCE SC (08:00)
--- NOTE | 2024-06-08 08:10 | W.PN.INTV ---
Today's Communication / Plan
Recommendations
Patient awaiting insurance authorization for outpatient hospice care at [facility]
Until she is transferred, continue ABx and antifungals
Ok to resume home lasix as her BP has normalized
Follow-up urine culture sensitivities
Trend WBC
Replete K>4, Mg>2
Monitor PACs/PVCs
Patient has been off of vasopressors now since yesterday early afternoon, and is awaiting transfer to hospice at [facility]. Patient stable for transfer out of ICU to telemetry while she awaits transfer to intermediate. Power Lineman/Pulmonary
service will now sign off. Please re-consult if there are any additional questions/concerns, or if patient's respiratory status deteriorates.
Assessment
-
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
and generalized weakness. She endorses no output from left-sided nephrostomy. She was hypothermic in the ER, tachycardic with atrial flutter with 2:1 AV conduction, with labs showing severe leukocytosis to 92.4, lactate 3.5 and glucose 228.
Urinalysis suspicious for UTI. She was given 2.2 L of crystalloids in the ER with NS 0.9%, cefepime + gentamicin. Given her tachycardia and hypotension she was admitted to the ICU for further care with critical care services consulted for
additional management/recommendations.
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
Impression:
#Complicated UTI with UCx growing yeast
#Tachyarrhythmia due to atrial flutter with 2: 1 AV conduction --> now back in NSR with PACs/PVCs
#Septic shock - shock state resolved as of 06/07/2024
#Severe leukocytosis likely due to sepsis due to above
#Lactic acidosis likely due to sepsis due to UTI - lactate normalized this AM
#Bilateral lower extremity DVT
#Hyponatremia
#Anemia (baseline Hb 9.5 - 10.5g/dL)
#CKD (baseline Cr 1.4�1.7)
#DM type II c/b hyperglycemia
#Left-sided ureteral cancer (low-grade papillary urothelial carcinoma, noninvasive � diagnosed via left ureteral mass biopsy on 04/09) s/p left-sided nephrostomy
#History of UTI due to E. coli + Klebsiella pneumonia
#Former tobacco use disorder (21-mwhn-tsgv history); no evidence of COPD via PFT from 08/2020
Plan:
- Continue ABx + antifungals
- Started IV fluconazole on 06/07 (QTc 492ms today)
- Narrow ABx to rocephin s/p 1.5 days of zosyn and s/p cefepime/gentamicin in ER
- Follow up urine Cx sensitivities
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
- She received 2L of crystalloids in ER
- No need for IVF as she is currently tolerating ADA
- If rhythm goes back into A-flutter or if PACs/PVCs become more frequent, then consult cardiology, however she is pending TRX to [facility] for hospice, so this may be a moot point
- Replete electrolytes with K>4, Mg>2
- Trend serum Na with goal 135-145
- Lower extremity duplex US from yesterday shows bilateral occlusive DVT with extensive clot burden in LLE from the SFJ down to PT vein, and involving proximal right peroneal vein
- Continue Eliquis
- Trend WBC
- Trend Hb and transfuse if needed to keep >7g/dL
- Maintain SpO2 >90-94%
- Maintain MAP>65
- Fall precautions
- PT/OT
- She denies LOC or head trauma WH[employer] WORK CLE[employer]ER; says she 'slipped' down to the floor and did not actually fall
- Maintain euglycemia with goal BG 140-180; ISS + lantus
- prn nebulized bronchodilators - not currently bronchospastic
- Incentive spirometer encouraged
- DVT ppx: Eliquis (started 10mg BID on 06/07 as she had previously stopped her Eliquis in prep for L-sided nephrectomy, and this could be partially what provoked her LLE acute DVT; she is also hypercoagulable)
- Given that she is now awaiting transfer to outpatient hospice, she no longer qualifies for lung cancer screening via LDCT chest. No additional follow up needed at this time.
GOC discussion warranted for her left sided ureteral cancer as she is too ill to have left sided nephrectomy ---> she is now DNR/DNI and awaiting TRX to [facility] for hospice care.
Patient has been off of vasopressors now since yesterday early afternoon, and is awaiting transfer to hospice at [facility]. Patient stable for transfer out of ICU to telemetry while she awaits transfer to intermediate. Power Lineman/Pulmonary
service will now sign off. Thank you for allowing us to be involved in the care of this patient. Please reconsult if there are any additional questions/concerns, or if patient's respiratory status deteriorates.
Total time spent today was 40 minutes for this encounter. Time includes reviewing laboratory test/imaging results, reviewing pertinent medical records, obtaining and reviewing medical history, performing an appropriate exam, ordering medications,
tests and procedures. Time also includes documentation of this encounter, coordinating patient care and communicating with other healthcare professionals. Total time does not include separately billed tests performed on this date of service.
Data:
CXR 06/06/2024: Prominent vascular markings suspicious for mild interstitial edema.
CT abd/pelvis without contrast 06/06/2024:
1. There is a large left pelvic/adnexal confluent soft tissue mass measuring up to 8.5 x 7.9 x 8.2 cm, markedly progressed from priors consistent with progression of disease (likely confluent combination of primary ureteral and metastatic regional
lymphadenopathy).
2. Left percutaneous nephrostomy tube noted with pigtail in position within the lower renal pelvis. No hydronephrosis.
Lower Extremity Duplex US 06/07/2024:
Extensive, occlusive DVT throughout the left lower extremity extending from the saphenofemoral junction through the calf veins secondary to external compression from the underlying left pelvic mass.
Acute occlusive DVT involving the proximal right peroneal vein.
Subjective Dataa
Subjective Data
Date of Service:
Date of Service: June 08, 2024
Chief Complaint: Power Lineman Follow Up
Subjective:
Patient seen and evaluated this morning. Sister friend at bedside. All questions were answered. Heart rate 64, BP 105/53, saturating 98% on RA. Off levophed since yesterday at 1300. Patient made DNR/DNI this morning. Patient still endorses
left lower extremity pain, although currently she is not requesting pain medications as pain is stable. She currently denies SOB, CP, STEVENSON, abdominal pain, fevers or chills.
Review of Systems
General: Other (Negative unless mentioned above)
Objective Data
Data Reviewed
Vital Signs / I&O / Oxygen:
Vital Signs
Temp Pulse Resp BP Pulse Ox
97.9 F 69 21 114/56 98
06/08/24 07:54 06/08/24 08:00 06/08/24 08:00 06/08/24 08:00 06/08/24 08:00
Intake and Output
06/07/24 06/08/24 06/09/24
06:59 06:59 06:59
Intake Total 1930 / 2016.5 1178.8 / 1178.8 67.5 / 67.5
Output Total 490 / 490 725 / 725 200 / 200
Balance 1440 / 1527.5 453.8 / 453.8 -132.5 / -132.5
SaO2 98
Physical Exam
General: Respiratory Distress (negative) and Comfortable
HEENT: Normocephalic and Anicteric
Cardiovascular: S1-S2 and Peripheral Edema (+2 pitting left lower extremity edema; no edema in right lower extremity)
Respiratory: Wheeze (negative), Crackles (Posterior right midlung), Rhonchi (negative) and Non-Labored Respirations
GI: Soft, Non Distended, Non Tender and Normal Bowel Sounds
Neurology: Awake, Alert and Tremors (negative)
Skin: Warm, Dry, Cyanosis (negative) and Jaundice (negative)
Labs/Micro/Reports
Lab Data
06/08/24 03:51
06/08/24 03:51
Microbiology
06/06/24 10:32 Urine Urine Culture - Final
Yeast
06/06/24 10:32 Blood/Venous Blood Culture - Preliminary
No Growth in 24 hours- Final report to follow
[2024-06-08] MEDS: ELIQUIS 10 MG PO (08:26)
--- NOTE | 2024-06-08 08:30 | PTCARENOTE ---
Rec'd pt at 0730 awake alert and oriented resting in bed. States she slept so-so last night- stating at times it was hard to get comfortable, but did say that the earlier Tylenol did help the leg discomfort and feels ok currently. Denies pain.
Speech is clear. Denies headache or dizziness. SINGH. Does have limited movement of her legs -mostly the L leg. Skin is pale wm and dry. Wounds as documented. Does have few abaised areas on her L knee-pt relates that she got stuck at home under her
recliner. Respirs are sl shallow but non-labored on RA with sats of 97%. BS in general are diminished with few R base crackles. Occasional non-prod cough. Monitor SR with isolated pacs and pvc's. + pulses. PT and DP pulses with the doppler. +3 LLE
edema. +1 RLE edema. Denies chest pain. VS as documented. Abd is round and soft with + BS. Denies nausea. Voiding yellow/glenn urine via purewick. New purewick placed after modesto care given. L flank nephrostomy tube-dressing over is D+I. Draining
yellow urine-clearer today than when last seen on Tuesday. 40meq KCL rider hung at 0700 via L lat AC IV site. Site wnl. Capped int LAC also wnl. Turned and repositioned. Does need assistance with turning-mostly moving her L leg. Partial CHG bath
given. Mouth care given. Call baig in reach. Dr. Salmeron in and discussed hospice and DNR status with pt. Pt verbalized understanding. [facility] her sister works
--- NOTE | 2024-06-08 09:36 | HOSPNOTE ---
Addendum entered by Riya Delaney RN 06/08/24 13:52:
Aware that family chose [facility] since the [facility] where the sister works [facility] the preferred.
Original Note:
Spoke with sister Nasima, patient and family all in agreement with hospice services. The one sister works at [facility] so they would like the patient to go there on hospice. The patient is unable to go home since the spouse can not properly care
for patient. Case management will send referral.
--- NOTE | 2024-06-08 10:28 | PTCARENOTE ---
Remains resting. Good appetite for breakfast. No c/o nausea. Repositioned. Currently Case Management in to see pt.
--- NOTE | 2024-06-08 10:48 | CM ---
Addendum entered by Domenica Reich 06/08/24 13:21:
[facility] hosp[facility] aware of change to [facility] provider.
Addendum entered by Domenica Reich 06/08/24 13:19:
fax for [facility]; [phone] CM spoke with Kaitlynn at [facility] they will call to confirm appointment for sign on today.
Addendum entered by Domenica Reich 06/08/24 12:58:
please call report to [phone]/fax [phone]
Addendum entered by Domenica Reich 06/08/24 12:55:
Patient accepted for transfer to [facility] for Hospice under [facility] per patient sisterTony. Patient for ambulance transfer and transfer forms completed on chart. Patient out of hospital DNR form completed and placed on chart.
Patient Sister aware and in agreement with plan for MA pending status at SNF and does not want to pursue auth from [facility] at this time. CM will send referral to [facility]. CM will continue to follow for discharge planning needs.
Plan; [facility] pending [facility] for [facility]
Original Note:
Patient seen at bedside with sister present. CM reviewed plan per hospice. Transition to SNF with inpatient hospice at the faciltiy. CM sent referral to [facility] and spoke with the liaison. Patient indicated that she was 'discusted' about the
spread of the CA and was comfortable with the plan for hospice. Patient and sister indicated that they understood possible need for MA application as hospice does not cover room and board. CM will continue to follow for discharge planning needs.
Plan; SNF;pending referral and watch for auth needs.
[2024-06-08 11:54] LABS: Glucose - Point of Care 181 mg/dl (70-99)
[2024-06-08] MEDS: NOVOLOG FLEXPEN-LOW RESISTANCE 1 UNITS SC (12:17)
[2024-06-08] MEDS: STERILE WATER FOR INJECTION 10 ML IV (12:20)
[2024-06-08] MEDS: ROCEPHIN 1000 MG IV (12:20)
[2024-06-08] MEDS: FLUSH (NSS) 1 FLUSH IV (12:21)
--- NOTE | 2024-06-08 12:33 | PTCARENOTE ---
Pt visiting with her sister most of the morning. Overall no complaints. VS as documented. On bedpan for mod amt of loose brown/lala stool. Misty care given and pt repositioned. Capped int removed from medial AC due to leaking. Site wnl. Lateral AC int
intact. KCL rider completed around 11. Domenica Reich- Case Management in to speak with pt and pts sister and made them aware there is a bed at [facility] and will work on getting her over there hopefully this afternoon pending discharge orders
and transport. Pt verbalized understanding and is aware she is going over on hospice currently. Dr. Salmeron updated. Pt currently eating lunch. Call baig in reach.
--- NOTE | 2024-06-08 12:34 | W.DS.TRANS ---
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
-
Discharge Instructions:
Discharge Diagnosis/Procedures Septic shock, advanced urothelial carcinoma,
acute bilateral lower extremity DVT,
hyponatremia
Diet Regular
Activity As tolerated
Driving Restrictions No driving
Bathing Restrictions None
Other Services Hospice
Instructions:
Stand-Alone Forms:
Changes to Home Medications: No
Discharge Medications:
DC Medications w/original date entered in [employer]
docusate sodium 100 mg capsule (Colace) 200 mg PO HSPRN PRN constipation 05/15/24
Home Medication Changes
Pending Results: No
--- NOTE | 2024-06-08 13:30 | PN.CDI ---
CDI
- -
CDI:
Physician Documentation Request
Admit Date: 06/06/24 12:21
Dear Doctor Jaron,
Patient admitted with septic shock. Progress notes include a diagnosis of ABIOLA
creatinine results:
Laboratory Tests
06/06/24 06/07/24 06/08/24
10:32 05:21 03:51
Creatinine 1.7 H 1.5 H 1.5 H
Criteria for ABIOLA*
1 Increase in serum creatinine by > or = to 0.3 mg/dL (> or = to 26.5 micromol/L) within 48 hours, OR
2 Increase in serum creatinine to > or = to 1.5 times baseline, which is known or presumed to have occurred within 7 days, OR
3 Urine volume < 0.5 nL/kg/hour for six hours
Based on the above information and the recognized standard for ABIOLA could you please verify this diagnoses is still accurate and reflective of the patient�s condition to ensure quality of the medical record.
Please clarify in the Progress Notes:
�ABIOLA is/was present and is a clinical diagnosis based on (please include this additional support in the medical record)
�After study ABIOLA has been ruled out
�Other
Use of terms such as suspected, likely, concern for, or probable (associated with a specific diagnosis that is being evaluated, monitored, or treated as if it exists) are acceptable and can be coded in the inpatient setting, when documented at the
time of discharge.
Thank you,
Flaquita Andrea RN, BSN
CDI Specialist
tiger text
Please use your independent medical judgment in providing your response.
--- NOTE | 2024-06-08 15:04 | PTCARENOTE ---
Zuly from [facility] in to speak with pt and family. Pt remains resting. Report called to [facility]
[2024-06-08] MEDS: DIFLUCAN 200 MG 100 IV (15:12)
--- NOTE | 2024-06-08 15:20 | PTCARENOTE ---
Medicated with Tylenol 650 mg po for c/o 3/10 L upper/mid leg discomfort
--- NOTE | 2024-06-08 15:45 | PTCARENOTE ---
Pt turned and repostioned. Dressing change done to L flank/hip stage 2 wound- wound bed pink. Silicone border foam placed. Dressing change completed to L nephrostomy tube-site wnl . Redressed with drain sponges and 4x4.
--- NOTE | 2024-06-08 15:48 | PTCARENOTE ---
Pt turned and repostioned. Dressing change done to L flank/hip stage 2 wound- wound bed pink. Silicone border foam placed. Dressing change completed to L nephrostomy tube-site wnl . Redressed with drain sponges and 4x4. Of note urine with some
bloody tinged drainage in the nephrostomy tube otherwise other urine drained is yellow. Will monitor
--- NOTE | 2024-06-08 16:50 | PTCARENOTE ---
Pt discharged to [facility]. No changes in assessment. Belongings from room sent with family
== END 2024-06-08 16:50 | disposition hospice, inpatient (51) | DRG 698 ==
LOC: ICU 12:21
PROVIDERS: Physician Assistant Medical; ADMITTING PHYSICIAN Hospitalist; CONSULT PHYSICIAN Internal Medicine Critical Care Medicine; CONSULT PHYSICIAN Radiology Diagnostic Radiology; CONSULT PHYSICIAN Surgery; EMERGENCY PHYSICIAN Emergency Medicine; FAMILY PHYSICIAN Physician Assistant Medical
DX: T83.092A Other mechanical complication of nephrostomy catheter, initial encounter (principal); R65.21 Severe sepsis with septic shock; N17.9 Acute kidney failure, unspecified; C66.2 Malignant neoplasm of left ureter; E87.1 Hypo-osmolality and hyponatremia; N10 Acute pyelonephritis; I48.92 Unspecified atrial flutter; E87.20 Acidosis, unspecified; I82.452 Acute embolism and thrombosis of left peroneal vein; N18.32 Chronic kidney disease, stage 3b; Y73.2 Prosthetic and other implants, materials and accessory gastroenterology and urology devices associated with adverse incidents; E11.65 Type 2 diabetes mellitus with hyperglycemia; I25.10 Atherosclerotic heart disease of native coronary artery without angina pectoris; E11.22 Type 2 diabetes mellitus with diabetic chronic kidney disease; I12.9 Hypertensive chronic kidney disease with stage 1 through stage 4 chronic kidney disease, or unspecified chronic kidney disease; Z86.73 Personal history of transient ischemic attack (TIA), and cerebral infarction without residual deficits; Z95.1 Presence of aortocoronary bypass graft; Z86.718 Personal history of other venous thrombosis and embolism
CPT/HCPCS: 71045; 74176; 80048; 80053; 81003; 81015; 82962; 83605; 83735; 84100; 85025; 85610; 85730; 87040; 87086; 93005; 93970; 96361; 96365; 96375; 99285